=== PATIENT | female | born 1985 | race Caucasian/White ===

== ENCOUNTER 2017-02-01 19:53 | Emergency (ER) | payer OTHER ==
[2017-02-01 20:14] VITALS: TEMP 97.9
[2017-02-01] MEDS ORDERED: ONDANSETRON 4 MG/2 ML VIAL IVP STA (20:40)
[2017-02-01] MEDS ORDERED: KETOROLAC 30 MG/ML 1 ML VIAL IVP STA (20:40)
--- NOTE | 2017-02-01 21:02 | XR ---
EXAMINATION TYPE: XR KUB DATE OF EXAM: 02/01/2017 8:59 PM COMPARISON: NONE HISTORY: Pain TECHNIQUE: Single supine KUB image of the abdomen is obtained FINDINGS: Small bowel demonstrates no evidence for dilatation or air fluid levels. Gas and fecal material is seen in non-distended colon. No convincing evidence for pneumoperitoneum. No unusual calcifications. The lung bases are clear. The osseous structures are intact. IMPRESSION: 1. Overall nonobstructive bowel gas pattern.
[2017-02-01 21:06] LABS: Basophils # (A) 0.1 k/uL (0-0.2); Basophils % (A) 1 %; CH 28.8; CHCM 33.6; Eosinophils # (A) 0.1 k/uL (0-0.7); Eosinophils % (A) 2 %; HCT 39.9 % (34.0-46.0); HDW 2.48; HGB 13.2 gm/dL (11.4-16.0); Luc # (Auto) 0.16; Luc % (Auto) 2; Lymphocytes # (A) 1.9 k/uL (1.0-4.8); Lymphocytes % (A) 23 %; MCH 28.4 pg (25.0-35.0); MCV 85.9 fL (80.0-100.0); Mean Platelet Volume 6.7; Monocytes # (A) 0.5 k/uL (0-1.0); Monocytes % (A) 6 %; Neutrophils # (A) 5.8 k/uL (1.3-7.7); Neutrophils % (A) 68 %; RBC 4.65 m/uL (3.80-5.40); RDW 12.9 % (11.5-15.5); WBC 8.5 k/uL (3.8-10.6); WBC (Perox) 8.83
[2017-02-01 21:11] LABS: Appearance,Urine Cloudy (Clear); Bacteria,Urine Rare /hpf; Bilirubin,Urine Negative (Negative); Glucose,Urine (UA) Negative (Negative); Ketones,Urine Negative (Negative); Leukocyte Esterase,Urine Large (Negative); Mucus,Urine Rare /hpf; Nitrite,Urine Negative (Negative); Particle Count 6254; Protein,Urine Trace (Negative); RBC,Urine 26 /hpf (0-5); Specific Gravity,Urine 1.022 (1.001-1.035); Squamous Epithelial Cell,Urine 4 /hpf (0-4); UA Billing (MACRO vs. MICRO) MICRO; WBC,Urine 29 /hpf (0-5)
[2017-02-01 21:14] LABS: ALT 31 U/L (9-52); AST 28 U/L (14-36); Alkaline Phosphatase 64 U/L (38-126); Amylase 32 U/L (30-110); Anion Gap 12 mmol/L; Blood Urea Nitrogen 10 mg/dL (7-17); Calcium 9.3 mg/dL (8.4-10.2); Carbon Dioxide 25 mmol/L (22-30); Chloride 105 mmol/L (98-107); Glucose 91 mg/dL (74-99); Non-African American GFR(MDRD) >60 (>60 ml/min/1.73 sqM); Potassium 4.5 mmol/L (3.5-5.1); Sodium 142 mmol/L (137-145); Total Bilirubin 0.6 mg/dL (0.2-1.3); Total Protein 8.2 g/dL (6.3-8.2)
[2017-02-01] MEDS ORDERED: SODIUM CHLORIDE 0.9% 1,000 ML IV ONE (21:24)
--- NOTE | 2017-02-01 21:26 | ED ---
Abdominal Pain HPI - General Chief Complaint: Abdominal Pain Stated Complaint: rt side and back pain Time Seen by Provider: 02/01/17 20:39 Source: patient, RN notes reviewed Mode of arrival: ambulatory Limitations: no limitations - History of Present Illness Initial Comments: Patient is a 32-year-old female with chief complaint of right flank pain for the past 3 days as well as pain with bowel movements. She reports that she's ever had a history of kidney stones. Patient states that she did notice some blood in her urine 2 days ago. She denies any trouble urinating. She denies any nausea or vomiting. She states that the pain is mainly over the right flank radiates towards her groin. She states her pain is currently a 6 out of 10. - Related Data Home Medications Medication Instructions Recorded Confirmed ALPRAZolam [Xanax] 0.5 mg PO DAILY PRN 04/10/14 02/01/17 Atorvastatin [Lipitor] 80 mg PO HS 02/01/17 02/01/17 HYDROcodone/APAP 5-325MG [[place] 0.5 tab PO DAILY PRN 02/01/17 02/01/17 5-325] Previous Rx's Medication Instructions Recorded Ibuprofen [Motrin] 800 mg PO Q8HR PRN #30 tab 04/10/14 Ciprofloxacin HCl [Cipro] 500 mg PO Q12HR #14 tablet 02/01/17 Allergies Allergy/AdvReac Type Severity Reaction Status Date / Time sulfamethoxazole Allergy Rash/Hives Verified 02/01/17 20:34 [From Bactrim] trimethoprim [From Bactrim] Allergy Rash/Hives Verified 02/01/17 20:34 Review of Systems ROS Statement: Those systems with pertinent positive or pertinent negative responses have been documented in the HPI. ROS Other: All systems not noted in ROS Statement are negative. Past Medical History Past Medical History: Hyperlipidemia, Hypertension Additional Past Medical History / Comment(s): chronic back pain History of Any Multi-Drug Resistant Organisms: None Reported Past Surgical History: Cholecystectomy, Orthopedic Surgery Additional Past Surgical History / Comment(s): elbow, novasure procedure Past Psychological History: Anxiety Smoking Status: Never smoker Past Alcohol Use History: Rare Past Drug Use History: None Reported General Exam - General Exam Comments Initial Comments: Well-appearing 32-year-old female. Patient does not appear to be in any acute distress. Patient is pleasant and cooperative. Limitations: no limitations General appearance: alert, in no apparent distress Head exam: Present: atraumatic, normocephalic, normal inspection Eye exam: Present: normal appearance, PERRL, EOMI. Absent: scleral icterus, conjunctival injection, periorbital swelling ENT exam: Present: normal exam, mucous membranes moist Neck exam: Present: normal inspection. Absent: tenderness, meningismus, lymphadenopathy Respiratory exam: Present: normal lung sounds bilaterally. Absent: respiratory distress, wheezes, rales, rhonchi, stridor Cardiovascular Exam: Present: regular rate, normal rhythm, normal heart sounds. Absent: systolic murmur, diastolic murmur, rubs, gallop, clicks GI/Abdominal exam: Present: soft, tenderness (Right CVA tenderness), normal bowel sounds. Absent: distended, guarding, rebound, rigid Extremities exam: Present: normal inspection, full ROM, normal capillary refill. Absent: tenderness, pedal edema, joint swelling, calf tenderness Back exam: Present: normal inspection Neurological exam: Present: alert, oriented X3, CN II-XII intact Psychiatric exam: Present: normal affect, normal mood Skin exam: Present: warm, dry, intact, normal color. Absent: rash Course Vital Signs 02/01/17 20:10 Temperature 97.9 F Pulse Rate 109 H Respiratory 18 Rate Blood Pressure 140/92 O2 Sat by Pulse 99 Oximetry Medical Decision Making - Medical Decision Making 32-year-old female with chief complaint of pain with bowel movements and blood with urination for approximately 3 days. Patient denies any dysuria. Patient lab work was reviewed and this does have evidence for urinary tract infection. No evidence of kidney stone and KUB are CT. Patient's pain was managed with IV Toradol. Patient will be discharged at this time with a prescription for her urinary tract infection. Urine culture of the obtained. Advised patient to follow-up with primary care provider in GI specialist she continues to have painful stools. I also recommended patient started to take stool softeners. Return parameters were discussed. - Lab Data Result diagrams: 02/01/17 20:56 02/01/17 20:56 Lab Results 02/01/17 02/01/17 02/01/17 Range/Units 20:56 20:56 20:56 WBC 8.5 (3.8-10.6) k/uL RBC 4.65 (3.80-5.40) m/uL Hgb 13.2 (11.4-16.0) gm/dL Hct 39.9 (34.0-46.0) % MCV 85.9 (80.0-100.0) fL MCH 28.4 (25.0-35.0) pg MCHC 33.0 (31.0-37.0) g/dL RDW 12.9 (11.5-15.5) % Plt Count 331 (150-450) k/uL Neutrophils % 68 % Lymphocytes % 23 % Monocytes % 6 % Eosinophils % 2 % Basophils % 1 % Neutrophils # 5.8 (1.3-7.7) k/uL Lymphocytes # 1.9 (1.0-4.8) k/uL Monocytes # 0.5 (0-1.0) k/uL Eosinophils # 0.1 (0-0.7) k/uL Basophils # 0.1 (0-0.2) k/uL Sodium 142 (137-145) mmol/L Potassium 4.5 (3.5-5.1) mmol/L Chloride 105 (98-107) mmol/L Carbon Dioxide 25 (22-30) mmol/L Anion Gap 12 mmol/L BUN 10 (7-17) mg/dL Creatinine 0.60 (0.52-1.04) mg/dL Est GFR (MDRD) Af Amer >60 (>60 ml/min/1.73 sqM) Est GFR (MDRD) Non-Af >60 (>60 ml/min/1.73 sqM) Glucose 91 (74-99) mg/dL Calcium 9.3 (8.4-10.2) mg/dL Total Bilirubin 0.6 (0.2-1.3) mg/dL AST 28 (14-36) U/L ALT 31 (9-52) U/L Alkaline Phosphatase 64 (38-126) U/L Total Protein 8.2 (6.3-8.2) g/dL Albumin 4.6 (3.5-5.0) g/dL Amylase 32 (30-110) U/L Lipase 88 (23-300) U/L Urine Color Yellow Urine Appearance Cloudy H (Clear) Urine pH 6.0 (5.0-8.0) Ur Specific [place] 1.022 (1.001-1.035) Urine Protein Trace H (Negative) Urine Glucose (UA) Negative (Negative) Urine Ketones Negative (Negative) Urine Blood Negative (Negative) Urine Nitrate Negative (Negative) Urine Bilirubin Negative (Negative) Urine Urobilinogen 2.0 (<2.0) mg/dL Ur Leukocyte Esterase Large H (Negative) Urine RBC 26 H (0-5) /hpf Urine WBC 29 H (0-5) /hpf Ur Squamous Epith Cells 4 (0-4) /hpf Urine Bacteria Rare H (None) /hpf Urine Mucus Rare H (None) /hpf Stool Occult Blood (Negative) 02/01/17 Range/Units 21:14 WBC (3.8-10.6) k/uL RBC (3.80-5.40) m/uL Hgb (11.4-16.0) gm/dL Hct (34.0-46.0) % MCV (80.0-100.0) fL MCH (25.0-35.0) pg MCHC (31.0-37.0) g/dL RDW (11.5-15.5) % Plt Count (150-450) k/uL Neutrophils % % Lymphocytes % % Monocytes % % Eosinophils % % Basophils % % Neutrophils # (1.3-7.7) k/uL Lymphocytes # (1.0-4.8) k/uL Monocytes # (0-1.0) k/uL Eosinophils # (0-0.7) k/uL Basophils # (0-0.2) k/uL Sodium (137-145) mmol/L Potassium (3.5-5.1) mmol/L Chloride (98-107) mmol/L Carbon Dioxide (22-30) mmol/L Anion Gap mmol/L BUN (7-17) mg/dL Creatinine (0.52-1.04) mg/dL Est GFR (MDRD) Af Amer (>60 ml/min/1.73 sqM) Est GFR (MDRD) Non-Af (>60 ml/min/1.73 sqM) Glucose (74-99) mg/dL Calcium (8.4-10.2) mg/dL Total Bilirubin (0.2-1.3) mg/dL AST (14-36) U/L ALT (9-52) U/L Alkaline Phosphatase (38-126) U/L Total Protein (6.3-8.2) g/dL Albumin (3.5-5.0) g/dL Amylase (30-110) U/L Lipase (23-300) U/L Urine Color Urine Appearance (Clear) Urine pH (5.0-8.0) Ur Specific [place] (1.001-1.035) Urine Protein (Negative) Urine Glucose (UA) (Negative) Urine Ketones (Negative) Urine Blood (Negative) Urine Nitrate (Negative) Urine Bilirubin (Negative) Urine Urobilinogen (<2.0) mg/dL Ur Leukocyte Esterase (Negative) Urine RBC (0-5) /hpf Urine WBC (0-5) /hpf Ur Squamous Epith Cells (0-4) /hpf Urine Bacteria (None) /hpf Urine Mucus (None) /hpf Stool Occult Blood Negative (Negative) - Radiology Data Radiology results: report reviewed CT abdomen and pelvis showed no significant abnormality to account for the patient's symptoms. KUB shows a nonobstructive bowel gas pattern. Disposition Clinical Impression: Urinary tract infection, Pain with bowel movements Disposition: HOME SELF-CARE Condition: Good Instructions: Urinary Tract Infection in Women (ED) Additional Instructions: Patient has a follow-up with primary care provider. Patient is advised to continue to take stool softeners. Return to emergency department if any alarming symptoms symptoms occur. Prescriptions: Ciprofloxacin HCl [Cipro] 500 mg PO Q12HR #14 tablet Referrals: Hemant David MD [Primary Care Provider] - 1-2 days Time of Disposition: 22:17
--- NOTE | 2017-02-01 22:13 | CT ---
EXAMINATION TYPE: CT abdomen pelvis wo con DATE OF EXAM: 02/01/2017 10:07 PM COMPARISON: 07/29/2015 HISTORY: Right flank and low back pain with hematuria. CT DLP: 1175.00 mGycm FINDINGS: LUNG BASES: No evidence for nodule. No evidence for infiltrate. LIVER/GB: Cholecystectomy changes noted. No space-occupying hepatic lesion. PANCREAS: No pancreatic mass identified. No inflammatory process seen. SPLEEN: No evidence for splenomegaly. No intrasplenic lesions seen. ADRENALS: No adrenal nodules identified. No evidence for thickening. KIDNEYS: No evidence for renal mass. No nephrolithiasis. No hydronephrosis. BOWEL: Appendix has a normal appearance. No evidence of bowel obstruction. No inflammatory process. Lymph nodes: No evidence for adenopathy greater than 1 cm. Abdominal aorta: Atheromatous changes seen. No evidence for aneurysm. Genital organs: No significant abnormality. Other: No significant abnormality. IMPRESSION: NO SIGNIFICANT ABNORMALITY TO ACCOUNT FOR THE PATIENT'S SYMPTOMS.
[2017-02-01 22:34] VITALS: BP 125/78; PULSE 95; RESP 16
== END 2017-02-01 22:33 | disposition home or self-care (01) ==
LOC: EC 19:53
DX: N39.0 Urinary tract infection, site not specified (principal); G25.89 Other specified extrapyramidal and movement disorders; E78.5 Hyperlipidemia, unspecified; Z79.899 Other long term (current) drug therapy; Z88.1 Allergy status to other antibiotic agents; Z88.2 Allergy status to sulfonamides; F41.9 Anxiety disorder, unspecified
CPT/HCPCS: 36415; 80053; 82150; 83690; 85025; 82272; 81001; 74000; 74176; 99284; 96374; 96375; 96361; J2405; J1885

== ENCOUNTER 2017-04-12 19:51 | Emergency (ER) | payer OTHER ==
[2017-04-12 19:57] VITALS: BP 135/78; PULSE 75; RESP 16; TEMP 97.8
--- NOTE | 2017-04-12 20:09 | ED ---
ENT HPI - General Chief complaint: ENT Stated complaint: rt ear infection Time Seen by Provider: 04/12/17 19:59 Source: patient, RN notes reviewed Mode of arrival: ambulatory Limitations: no limitations - History of Present Illness Initial comments: Patient is a 32-year-old female presents to the emergency room for evaluation of right ear pain. Patient states every is been bothering her for the past few days. Patient denies any trauma to her ear or sticking any foreign bodies in her ear. Patient states that she has to wear headphones at work and has been unable to secondary to pain. Patient states she feels like she cannot fully hear out of her right ear. Patient denies any left ear pain. Patient has been draining from right ear. Patient denies fevers or chills. Patient denies headache or dizziness. Patient denies neck pain. Patient denies chest pain. Patient denies any other symptoms or complaints. - Related Data Home Medications Medication Instructions Recorded Confirmed ALPRAZolam [Xanax] 0.5 mg PO DAILY PRN 04/10/14 04/12/17 Atorvastatin [Lipitor] 80 mg PO HS 02/01/17 04/12/17 HYDROcodone/APAP 5-325MG [[place] 0.5 tab PO DAILY PRN 02/01/17 04/12/17 5-325] Previous Rx's Medication Instructions Recorded Ibuprofen [Motrin] 800 mg PO Q8HR PRN #30 tab 04/10/14 Amoxicillin 500 mg PO Q12HR 10 Days 04/12/17 Allergies Allergy/AdvReac Type Severity Reaction Status Date / Time sulfamethoxazole Allergy Rash/Hives Verified 04/12/17 19:57 [From Bactrim] trimethoprim [From Bactrim] Allergy Rash/Hives Verified 04/12/17 19:57 Review of Systems ROS Statement: Those systems with pertinent positive or pertinent negative responses have been documented in the HPI. ROS Other: All systems not noted in ROS Statement are negative. Past Medical History Past Medical History: Hyperlipidemia, Hypertension Additional Past Medical History / Comment(s): chronic back pain History of Any Multi-Drug Resistant Organisms: None Reported Past Surgical History: Cholecystectomy, Orthopedic Surgery Additional Past Surgical History / Comment(s): elbow, novasure procedure Past Psychological History: Anxiety Smoking Status: Never smoker Past Alcohol Use History: Rare Past Drug Use History: None Reported General Exam - General Exam Comments Initial Comments: Sitting in exam room, no acute distress. Limitations: no limitations General appearance: alert, in no apparent distress Head exam: Present: atraumatic, normocephalic, normal inspection Eye exam: Present: normal appearance Expanded Ear exam: Present: normal external inspection TM/Canal exam: Canal Tenderness: Right TM Mouth exam: Present: normal external inspection Throat exam: normal inspection Neck exam: Present: normal inspection Respiratory exam: Present: normal lung sounds bilaterally. Absent: respiratory distress Cardiovascular Exam: Present: regular rate, normal rhythm, normal heart sounds Extremities exam: Present: normal inspection Back exam: Present: normal inspection Neurological exam: Present: alert, oriented X3, CN II-XII intact, normal gait Psychiatric exam: Present: normal affect, normal mood Skin exam: Present: warm, dry, intact, normal color. Absent: rash Course Vital Signs 04/12/17 19:54 Temperature 97.8 F Pulse Rate 75 Respiratory 16 Rate Blood Pressure 135/78 O2 Sat by Pulse 99 Oximetry Medical Decision Making - Medical Decision Making Patient is a 32-year-old female presents emergency room for evaluation of right ear pain. Will place patient on antibiotics prophylactically and have her follow-up with her primary care provider. Patient states she understands everything that was discussed with her. Return parameters discussed. Disposition Clinical Impression: Right ear pain Disposition: HOME SELF-CARE Condition: Good Instructions: Earache (ED) Additional Instructions: Take antibiotics as directed. Please follow-up with primary care provider 24- 48 hours for reevaluation. Take Tylenol or Motrin as needed for pain. If any new symptom arises or symptoms worsen, return to ER as soon as possible. Prescriptions: Amoxicillin 500 mg PO Q12HR 10 Days Referrals: Hemant David MD [Primary Care Provider] - 1-2 days Time of Disposition: 20:06
== END 2017-04-12 20:15 | disposition home or self-care (01) ==
LOC: EC 19:51
DX: H92.01 Otalgia, right ear (principal); E78.5 Hyperlipidemia, unspecified; Z88.2 Allergy status to sulfonamides; Z79.899 Other long term (current) drug therapy
CPT/HCPCS: 99282

== ENCOUNTER 2017-06-17 15:07 | Emergency (ER) | payer OTHER ==
--- NOTE | 2017-06-17 16:34 | ED ---
Upper Extremity HPI - General Chief Complaint: Extremity Injury, Upper Stated Complaint: R hand pain Time Seen by Provider: 06/17/17 16:06 Source: patient Mode of arrival: ambulatory Limitations: no limitations - Related Data Home Medications Medication Instructions Recorded Confirmed ALPRAZolam [Xanax] 0.5 mg PO DAILY PRN 04/10/14 04/12/17 Atorvastatin [Lipitor] 80 mg PO HS 02/01/17 04/12/17 HYDROcodone/APAP 5-325MG [[place] 0.5 tab PO DAILY PRN 02/01/17 04/12/17 5-325] Previous Rx's Medication Instructions Recorded Ibuprofen [Motrin] 800 mg PO Q8HR PRN #30 tab 04/10/14 Amoxicillin 500 mg PO Q12HR 10 Days 04/12/17 Allergies Allergy/AdvReac Type Severity Reaction Status Date / Time sulfamethoxazole Allergy Rash/Hives Verified 04/12/17 19:57 [From Bactrim] trimethoprim [From Bactrim] Allergy Rash/Hives Verified 04/12/17 19:57 Review of Systems ROS Statement: Those systems with pertinent positive or pertinent negative responses have been documented in the HPI. ROS Other: All systems not noted in ROS Statement are negative. Past Medical History Past Medical History: Hyperlipidemia, Hypertension Additional Past Medical History / Comment(s): chronic back pain History of Any Multi-Drug Resistant Organisms: None Reported Past Surgical History: Cholecystectomy, Orthopedic Surgery Additional Past Surgical History / Comment(s): elbow, novasure procedure Past Psychological History: Anxiety Smoking Status: Never smoker Past Alcohol Use History: Rare Past Drug Use History: None Reported General Exam Limitations: no limitations Course Vital Signs 06/17/17 15:36 Temperature 98.1 F Pulse Rate 67 Respiratory 20 Rate Blood Pressure 147/88 O2 Sat by Pulse 96 Oximetry Disposition Clinical Impression: Right hand pain, Carpal tunnel syndrome Disposition: HOME SELF-CARE Condition: Good Instructions: Wrist Injury (ED) Additional Instructions: Patient advised to apply ice over the wrist. Monitor for any signs of swelling or increased redness over the area. Patient could suspect to have some numbness and tingling for the next week. Recommended following up with your orthopedic physician of symptoms continue to persist. Return to the emergency department if any alarming signs or symptoms occur. Referrals: Hemant David MD [Primary Care Provider] - 1-2 days Time of Disposition: 16:33
[2017-06-17 16:46] VITALS: BP 140/85; PULSE 68; RESP 18; TEMP 98.3
== END 2017-06-17 16:44 | disposition home or self-care (01) ==
LOC: EC 15:07
DX: G56.01 Carpal tunnel syndrome, right upper limb (principal); E78.5 Hyperlipidemia, unspecified; I10 Essential (primary) hypertension; Z88.1 Allergy status to other antibiotic agents; Z88.2 Allergy status to sulfonamides; Z79.899 Other long term (current) drug therapy
CPT/HCPCS: 29125; 99283

== ENCOUNTER 2017-09-06 17:19 | Emergency (ER) | payer OTHER ==
[2017-09-06 17:34] VITALS: RESP 18; TEMP 97.4
[2017-09-06] MEDS ORDERED: ONDANSETRON 4 MG/2 ML VIAL IVP STA (18:56)
[2017-09-06] MEDS ORDERED: SODIUM CHLORIDE 0.9% 1,000 ML IV ONE (18:56)
[2017-09-06] MEDS ORDERED: SODIUM CHLORIDE 0.9% 1,000 ML IV SCH (19:00)
[2017-09-06 19:11] LABS: Basophils # (A) 0.1 k/uL (0-0.2); Basophils % (A) 1 %; CH 28.9; CHCM 33.7; Eosinophils # (A) 0.2 k/uL (0-0.7); Eosinophils % (A) 2 %; HCT 38.6 % (34.0-46.0); HDW 2.51; Luc # (Auto) 0.15; Luc % (Auto) 2; Lymphocytes # (A) 1.9 k/uL (1.0-4.8); Lymphocytes % (A) 29 %; MCH 28.9 pg (25.0-35.0); MCHC 33.5 g/dL (31.0-37.0); MCV 86.1 fL (80.0-100.0); Mean Platelet Volume 6.8; Monocytes # (A) 0.5 k/uL (0-1.0); Monocytes % (A) 7 %; Neutrophils # (A) 3.8 k/uL (1.3-7.7); Neutrophils % (A) 59 %; RBC 4.49 m/uL (3.80-5.40); RDW 12.5 % (11.5-15.5); WBC 6.5 k/uL (3.8-10.6)
[2017-09-06 19:21] LABS: ALT 49 U/L (9-52); AST 42 U/L (14-36); Alkaline Phosphatase 71 U/L (38-126); Anion Gap 12 mmol/L; Blood Urea Nitrogen 10 mg/dL (7-17); Carbon Dioxide 21 mmol/L (22-30); Chloride 106 mmol/L (98-107); Glucose 91 mg/dL (74-99); Non-African American GFR(MDRD) >60 (>60 ml/min/1.73 sqM); Potassium 3.9 mmol/L (3.5-5.1); Sodium 139 mmol/L (137-145); Total Bilirubin 0.4 mg/dL (0.2-1.3); Total Protein 6.9 g/dL (6.3-8.2)
[2017-09-06] MEDS ORDERED: MECLIZINE 12.5 MG TAB PO STA (19:30)
--- NOTE | 2017-09-06 19:31 | ED ---
Dizziness HPI - General Source: patient, RN notes reviewed, old records reviewed Mode of arrival: ambulatory Limitations: no limitations <Rea Troyily - Last Filed: 09/07/17 05:18> <Vijaya Samuels - Last Filed: 10/28/17 00:42> - General Chief Complaint: Dizziness Stated Complaint: Light Headed, Nauseated Time Seen by Provider: 09/06/17 18:48 - History of Present Illness Initial Comments: 32-year-old female presents emergency Department chief complaint of occasional dizziness today. She reports she woke up and went from a laying down to sitting position and felt like she was lightheaded and dizzy. She reports that yesterday she did have multiple episodes of diarrhea. She states that she's had no vomiting. Denies any chest pain or abdominal pain. Patient states that she was also at work at [employer] with heavy equipment but she did not want to go into to her dizziness. She reports that she's tried to stay hydrated. Denies any fevers or chills. She reports is also had a minor cough over the past few days.Patient has a history of hyperlipidemia and hypertension, chronic back pain and vertigo. (Callie Troy) - Related Data Home Medications Medication Instructions Recorded Confirmed ALPRAZolam [Xanax] 0.5 mg PO DAILY PRN 04/10/14 10/01/17 Atorvastatin [Lipitor] 80 mg PO HS 02/01/17 10/01/17 Previous Rx's Medication Instructions Recorded Ibuprofen [Motrin] 800 mg PO Q8HR PRN #30 tab 04/10/14 predniSONE 50 mg PO DAILY #5 tablet 10/01/17 Allergies Allergy/AdvReac Type Severity Reaction Status Date / Time sulfamethoxazole Allergy Rash/Hives Verified 10/01/17 21:04 [From Bactrim] trimethoprim [From Bactrim] Allergy Rash/Hives Verified 10/01/17 21:04 Review of Systems ROS Other: All systems not noted in ROS Statement are negative. <Rea Troyily - Last Filed: 09/07/17 05:18> ROS Other: All systems not noted in ROS Statement are negative. <Vijaya Samuels - Last Filed: 10/28/17 00:42> ROS Statement: Those systems with pertinent positive or pertinent negative responses have been documented in the HPI. Past Medical History Past Medical History: Hyperlipidemia, Hypertension Additional Past Medical History / Comment(s): chronic back pain, vertigo History of Any Multi-Drug Resistant Organisms: None Reported Past Surgical History: Cholecystectomy, Orthopedic Surgery Additional Past Surgical History / Comment(s): elbow, novasure procedure Past Psychological History: Anxiety Smoking Status: Never smoker Past Alcohol Use History: Rare Past Drug Use History: None Reported <Callie Troy - Last Filed: 09/07/17 05:18> General Exam Limitations: no limitations General appearance: alert, in no apparent distress Head exam: Present: atraumatic, normocephalic, normal inspection Eye exam: Present: normal appearance, PERRL, EOMI. Absent: scleral icterus, conjunctival injection, periorbital swelling ENT exam: Present: normal exam, mucous membranes moist Neck exam: Present: normal inspection. Absent: tenderness, meningismus, lymphadenopathy Respiratory exam: Present: normal lung sounds bilaterally. Absent: respiratory distress, wheezes, rales, rhonchi, stridor Cardiovascular Exam: Present: regular rate, normal rhythm, normal heart sounds. Absent: systolic murmur, diastolic murmur, rubs, gallop, clicks GI/Abdominal exam: Present: soft, normal bowel sounds. Absent: distended, tenderness, guarding, rebound, rigid Extremities exam: Present: normal inspection, full ROM, normal capillary refill. Absent: tenderness, pedal edema, joint swelling, calf tenderness Back exam: Present: normal inspection Neurological exam: Present: alert, oriented X3, CN II-XII intact Psychiatric exam: Present: normal affect, normal mood Skin exam: Present: warm, dry, intact, normal color. Absent: rash <Callie Troy - Last Filed: 09/07/17 05:18> <Vijaya Samuels - Last Filed: 10/28/17 00:42> - General Exam Comments Initial Comments: This is a well-appearing 32-year-old female. No distress. (Callie Troy) Vital Signs 09/06/17 09/06/17 17:32 20:19 Temperature 97.4 F L Pulse Rate 62 64 Respiratory 18 18 Rate Blood Pressure 130/84 120/67 O2 Sat by Pulse 98 98 Oximetry Medical Decision Making - Lab Data Result diagrams: 09/06/17 18:51 09/06/17 18:51 - Radiology Data Radiology results: report reviewed <WoodrowCallie - Last Filed: 09/07/17 05:18> - Lab Data Result diagrams: 09/06/17 18:51 09/06/17 18:51 <Vijaya Samuels - Last Filed: 10/28/17 00:42> - Medical Decision Making This is a 32-year-old female presents emergency Department chief complaint of dizziness and nausea for the past day. She reports that whenever she got up this morning when she went from laying to sitting position she felt dizzy. She reports that she's tried to stay hydrated, but she did have multiple ecchymosis of diarrhea yesterday. Denies any chest pain shortness of breath, vomiting or abdominal pain. Patient's lab work was reviewed and negative for any abnormalities. Chest x-ray was also within normal limits. She denies any other significant chest pain. Slightly patient per dehydrated due to the diarrhea yesterday. She reports she does feel better after the nausea medicine. Patient be discharged with some close follow-up with primary care provider. Return parameters were discussed. (Callie Troy) - Lab Data Lab Results 09/06/17 09/06/17 09/06/17 Range/Units 18:51 18:51 18:53 WBC 6.5 (3.8-10.6) k/uL RBC 4.49 (3.80-5.40) m/uL Hgb 13.0 (11.4-16.0) gm/dL Hct 38.6 (34.0-46.0) % MCV 86.1 (80.0-100.0) fL MCH 28.9 (25.0-35.0) pg MCHC 33.5 (31.0-37.0) g/dL RDW 12.5 (11.5-15.5) % Plt Count 315 (150-450) k/uL Neutrophils % 59 % Lymphocytes % 29 % Monocytes % 7 % Eosinophils % 2 % Basophils % 1 % Neutrophils # 3.8 (1.3-7.7) k/uL Lymphocytes # 1.9 (1.0-4.8) k/uL Monocytes # 0.5 (0-1.0) k/uL Eosinophils # 0.2 (0-0.7) k/uL Basophils # 0.1 (0-0.2) k/uL Sodium 139 (137-145) mmol/L Potassium 3.9 (3.5-5.1) mmol/L Chloride 106 (98-107) mmol/L Carbon Dioxide 21 L (22-30) mmol/L Anion Gap 12 mmol/L BUN 10 (7-17) mg/dL Creatinine 0.60 (0.52-1.04) mg/dL Est GFR (MDRD) Af Amer >60 (>60 ml/min/1.73 sqM) Est GFR (MDRD) Non-Af >60 (>60 ml/min/1.73 sqM) Glucose 91 (74-99) mg/dL Calcium 9.0 (8.4-10.2) mg/dL Total Bilirubin 0.4 (0.2-1.3) mg/dL AST 42 H (14-36) U/L ALT 49 (9-52) U/L Alkaline Phosphatase 71 (38-126) U/L Total Protein 6.9 (6.3-8.2) g/dL Albumin 4.0 (3.5-5.0) g/dL Urine Color Urine Appearance (Clear) Urine pH (5.0-8.0) Ur Specific [place] (1.001-1.035) Urine Protein (Negative) Urine Glucose (UA) (Negative) Urine Ketones (Negative) Urine Blood (Negative) Urine Nitrite (Negative) Urine Bilirubin (Negative) Urine Urobilinogen (<2.0) mg/dL Ur Leukocyte Esterase (Negative) Urine RBC (0-5) /hpf Urine WBC (0-5) /hpf Ur Squamous Epith Cells (0-4) /hpf Urine Mucus (None) /hpf Urine HCG, Qual Not Detected (Not Detectd) 09/06/17 Range/Units 18:53 WBC (3.8-10.6) k/uL RBC (3.80-5.40) m/uL Hgb (11.4-16.0) gm/dL Hct (34.0-46.0) % MCV (80.0-100.0) fL MCH (25.0-35.0) pg MCHC (31.0-37.0) g/dL RDW (11.5-15.5) % Plt Count (150-450) k/uL Neutrophils % % Lymphocytes % % Monocytes % % Eosinophils % % Basophils % % Neutrophils # (1.3-7.7) k/uL Lymphocytes # (1.0-4.8) k/uL Monocytes # (0-1.0) k/uL Eosinophils # (0-0.7) k/uL Basophils # (0-0.2) k/uL Sodium (137-145) mmol/L Potassium (3.5-5.1) mmol/L Chloride (98-107) mmol/L Carbon Dioxide (22-30) mmol/L Anion Gap mmol/L BUN (7-17) mg/dL Creatinine (0.52-1.04) mg/dL Est GFR (MDRD) Af Amer (>60 ml/min/1.73 sqM) Est GFR (MDRD) Non-Af (>60 ml/min/1.73 sqM) Glucose (74-99) mg/dL Calcium (8.4-10.2) mg/dL Total Bilirubin (0.2-1.3) mg/dL AST (14-36) U/L ALT (9-52) U/L Alkaline Phosphatase (38-126) U/L Total Protein (6.3-8.2) g/dL Albumin (3.5-5.0) g/dL Urine Color Yellow Urine Appearance Cloudy H (Clear) Urine pH 6.5 (5.0-8.0) Ur Specific [place] 1.018 (1.001-1.035) Urine Protein Negative (Negative) Urine Glucose (UA) Negative (Negative) Urine Ketones Negative (Negative) Urine Blood Negative (Negative) Urine Nitrite Negative (Negative) Urine Bilirubin Negative (Negative) Urine Urobilinogen <2.0 (<2.0) mg/dL Ur Leukocyte Esterase Moderate H (Negative) Urine RBC 4 (0-5) /hpf Urine WBC 2 (0-5) /hpf Ur Squamous Epith Cells 14 H (0-4) /hpf Urine Mucus Rare H (None) /hpf Urine HCG, Qual (Not Detectd) - Radiology Data Physical x-rays negative for any acute process. (Callie Troy) Disposition Time of Disposition: 20:14 <Callie Troy - Last Filed: 09/07/17 05:18> <Vijaya Samuels - Last Filed: 10/28/17 00:42> Clinical Impression: Dizziness Disposition: HOME SELF-CARE Condition: Good Instructions: Dizziness (ED) Additional Instructions: She is follow-up with primary care provider. REst, remain hydrated. Return to the emergency department if any alarming signs or symptoms occur. Referrals: Hemant David MD [Primary Care Provider] - 1-2 days
[2017-09-06 19:35] LABS: Appearance,Urine Cloudy (Clear); Bilirubin,Urine Negative (Negative); Glucose,Urine (UA) Negative (Negative); Ketones,Urine Negative (Negative); Leukocyte Esterase,Urine Moderate (Negative); Mucus,Urine Rare /hpf; Nitrite,Urine Negative (Negative); PH, Urine 6.5 (5.0-8.0); Particle Count 2789; Protein,Urine Negative (Negative); RBC,Urine 4 /hpf (0-5); Specific Gravity,Urine 1.018 (1.001-1.035); Squamous Epithelial Cell,Urine 14 /hpf (0-4); UA Billing (MACRO vs. MICRO) MICRO; Urobilinogen,Urine <2.0 mg/dL (<2.0); WBC,Urine 2 /hpf (0-5)
--- NOTE | 2017-09-06 19:55 | XR ---
EXAMINATION TYPE: XR chest 2V DATE OF EXAM: 09/06/2017 COMPARISON: Prior chest x-ray 01/11/2016 HISTORY: Dizziness, lightheaded TECHNIQUE: Frontal and lateral views of the chest are obtained. FINDINGS: There is no focal air space opacity, pleural effusion, or pneumothorax seen. The cardiac silhouette size is stable. Hyperinflation may be indicative of underlying COPD. The osseous structur es are intact. IMPRESSION: No acute cardiopulmonary process.
[2017-09-06 20:19] VITALS: BP 120/67; PULSE 64
== END 2017-09-06 20:23 | disposition home or self-care (01) ==
LOC: EC 17:19
DX: R42 Dizziness and giddiness (principal); R19.7 Diarrhea, unspecified; R11.0 Nausea; I10 Essential (primary) hypertension; E78.5 Hyperlipidemia, unspecified; Z88.1 Allergy status to other antibiotic agents; Z88.2 Allergy status to sulfonamides; Z79.899 Other long term (current) drug therapy
CPT/HCPCS: 99284 ×2; 96374 ×2; 96361 ×2; 36415; 80053; 85025; 81001; 81025; 71020; J2405

== ENCOUNTER 2017-10-01 21:01 | Emergency (ER) | payer OTHER ==
[2017-10-01 22:04] VITALS: RESP 18
--- NOTE | 2017-10-01 22:27 | XR ---
EXAMINATION TYPE: XR chest 2V DATE OF EXAM: 10/01/2017 COMPARISON: 09/06/2017 HISTORY: Cough TECHNIQUE: Frontal and lateral views of the chest are obtained. FINDINGS: Heart and mediastinum are normal. Lungs are clear. Diaphragm is normal. Bony thorax appear s normal. IMPRESSION: Normal chest. No change.
--- NOTE | 2017-10-01 23:02 | ED ---
URI HPI - General Chief Complaint: Upper Respiratory Infection Stated Complaint: URI Time Seen by Provider: 10/01/17 21:27 Source: patient Mode of arrival: ambulatory Limitations: no limitations - History of Present Illness Initial Comments: 32-year-old female patient presents to the emergency department today for complaints of cough 2 weeks. Patient states that she started with upper respiratory symptoms including nasal congestion and drainage, sore throat, and cough approximately 2 weeks ago. Patient states that her other symptoms have resolved however the cough persists. She states that when she has coughing episodes she feels short of breath. She states that she occasionally does cough up green sputum. She denies any resting shortness of breath. States she does feel like she has more difficulty breathing with lying down. States that she has been using her mother's albuterol nebulizer treatments that haven't really changed her symptoms. She denies any fevers or chills with this. She denies any palpitations or racing heart. Patient denies any recent rash, chest pain, abdominal pain, nausea, vomiting, diarrhea, constipation, back pain, numbness, tingling, dizziness, weakness, hematuria, dysuria, urinary urgency, urinary frequency, headache, visual changes, or any other complaints. She denies any chance of , states that she has had a NovaSure procedure. She denies any use of tobacco products. - Related Data Home Medications Medication Instructions Recorded Confirmed ALPRAZolam [Xanax] 0.5 mg PO DAILY PRN 04/10/14 10/01/17 Atorvastatin [Lipitor] 80 mg PO HS 02/01/17 10/01/17 Previous Rx's Medication Instructions Recorded Ibuprofen [Motrin] 800 mg PO Q8HR PRN #30 tab 04/10/14 predniSONE 50 mg PO DAILY #5 tablet 10/01/17 Allergies Allergy/AdvReac Type Severity Reaction Status Date / Time sulfamethoxazole Allergy Rash/Hives Verified 10/01/17 21:04 [From Bactrim] trimethoprim [From Bactrim] Allergy Rash/Hives Verified 10/01/17 21:04 Review of Systems ROS Statement: Those systems with pertinent positive or pertinent negative responses have been documented in the HPI. ROS Other: All systems not noted in ROS Statement are negative. Past Medical History Past Medical History: Hyperlipidemia, Hypertension Additional Past Medical History / Comment(s): chronic back pain, vertigo History of Any Multi-Drug Resistant Organisms: None Reported Past Surgical History: Cholecystectomy, Orthopedic Surgery Additional Past Surgical History / Comment(s): elbow, novasure procedure Past Psychological History: Anxiety Smoking Status: Never smoker Past Alcohol Use History: Rare Past Drug Use History: None Reported General Exam Limitations: no limitations General appearance: alert, in no apparent distress, other (This is a well- developed, well-nourished adult female patient in no acute distress. Vital signs upon presentation are temperature 98.7F, pulse 116, respirations 20, blood pressure 132/75, pulse ox 95% on room air.) Eye exam: Present: normal appearance, PERRL, EOMI. Absent: scleral icterus, conjunctival injection, periorbital swelling ENT exam: Present: normal exam, normal oropharynx, mucous membranes moist, TM's normal bilaterally Respiratory exam: Present: normal lung sounds bilaterally, other (Respirations are even and unlabored. Harsh cough noted during exam.). Absent: respiratory distress, wheezes, rales, rhonchi, stridor Cardiovascular Exam: Present: regular rate, normal rhythm, normal heart sounds. Absent: systolic murmur, diastolic murmur, rubs, gallop, clicks Neurological exam: Present: alert, oriented X3, CN II-XII intact Psychiatric exam: Present: normal affect, normal mood Skin exam: Present: warm, dry, intact, normal color. Absent: rash Course Vital Signs 10/01/17 10/01/17 10/01/17 21:02 22:03 23:17 Temperature 98.7 F 97.2 F L 97.4 F L Pulse Rate 116 H 76 79 Respiratory 20 18 18 Rate Blood Pressure 132/75 143/83 128/78 O2 Sat by Pulse 95 97 100 Oximetry Medical Decision Making - Medical Decision Making 32-year-old female patient presented for evaluation of cough 2 weeks. Physical examination revealed clear lung sounds with no wheezing, rales, rhonchi , or other adventitious sounds. Respirations are even and unlabored. Did note a harsh cough during exam. Vital signs are stable, heart rate was in the 70s at discharge, and her oxygen levels 100%. We did give patient by mouth prednisone here in the department and we will place her on a course of prednisone for home for treatment of acute bronchitis. She is instructed to follow-up with her primary care physician for recheck in 1-2 days. She is instructed to return here immediately for any new, worsening, or concerning symptoms. She verbalizes understanding and agrees with this plan. - Radiology Data Radiology results: report reviewed, image reviewed Two-view x-ray of the chest shows a heart and mediastinum are normal. Lungs are clear. Diaphragm is normal. Bony thorax appears normal. Impression by Dr. Stephen shows normal chest with no change. Disposition Clinical Impression: Acute bronchitis Disposition: HOME SELF-CARE Condition: Good Instructions: Acute Bronchitis (ED) Additional Instructions: Take steroid prescription and full. Use [id number] cough medications as needed. Increase fluids. Follow-up with your primary care physician for recheck in 1-2 days. Prescriptions: predniSONE 50 mg PO DAILY #5 tablet Referrals: Hemant David MD [Primary Care Provider] - 1-2 days Time of Disposition: 23:02
[2017-10-01] MEDS ORDERED: predniSONE 50 MG TAB PO STA (23:09)
[2017-10-01 23:18] VITALS: BP 128/78; PULSE 79; TEMP 97.4
== END 2017-10-01 23:18 | disposition home or self-care (01) ==
LOC: EC 21:01
DX: J20.9 Acute bronchitis, unspecified (principal); E78.5 Hyperlipidemia, unspecified; Z79.899 Other long term (current) drug therapy; Z88.2 Allergy status to sulfonamides
CPT/HCPCS: 71020; 99283; J7512

== ENCOUNTER 2018-01-26 17:05 | Emergency (ER) | payer OTHER ==
[2018-01-26] MEDS ORDERED: ONDANSETRON 4 MG/2 ML VIAL IVP STA (17:43)
[2018-01-26] MEDS ORDERED: SODIUM CHLORIDE 0.9% 1,000 ML IV ONE (17:44)
--- NOTE | 2018-01-26 17:46 | ED ---
General Adult HPI - General Chief complaint: GI Bleed Stated complaint: Abd Pain, lower back pain Time Seen by Provider: 01/26/18 17:31 Source: patient, RN notes reviewed, old records reviewed Mode of arrival: ambulatory Limitations: no limitations - History of Present Illness Initial comments: 33 yoF presenting with left flank pain radiating to her LLQ and suprapubic area accompanied by nausea, one episode of emesis, and GI bleeding. Patient states the pain started 2 days ago and has been gradually worsening. She admits to loose stool with clots of blood in them. Denies suspicious foods or recent travels. Denies history of hemorrhoids, IBD, or diverticulitis. Denies fever but admits to chills. Denies dysuria or hematuria. - Related Data Home Medications Medication Instructions Recorded Confirmed ALPRAZolam [Xanax] 0.5 mg PO DAILY PRN 04/10/14 01/26/18 Atorvastatin [Lipitor] 80 mg PO HS 02/01/17 01/26/18 Cyclobenzaprine HCl 10 mg PO HS PRN 01/26/18 01/26/18 Previous Rx's Medication Instructions Recorded Ibuprofen [Motrin] 800 mg PO Q8HR PRN #30 tab 04/10/14 Cephalexin [Keflex] 500 mg PO Q12HR 7 Days #14 cap 01/26/18 Ibuprofen [Motrin] 600 mg PO Q6HR PRN #20 tab 01/26/18 Allergies Allergy/AdvReac Type Severity Reaction Status Date / Time sulfamethoxazole Allergy Rash/Hives Verified 01/26/18 17:29 [From Bactrim] trimethoprim [From Bactrim] Allergy Rash/Hives Verified 01/26/18 17:29 Review of Systems ROS Statement: Those systems with pertinent positive or pertinent negative responses have been documented in the HPI. ROS Other: All systems not noted in ROS Statement are negative. Constitutional: Reports: chills. Denies: fever Respiratory: Denies: cough, dyspnea Cardiovascular: Denies: chest pain Gastrointestinal: Reports: nausea, vomiting, diarrhea, hematochezia Genitourinary: Denies: urgency, dysuria Musculoskeletal: Reports: back pain Neurological: Denies: headache, weakness Hematological/Lymphatic: Denies: easy bleeding Past Medical History Past Medical History: Hyperlipidemia, Hypertension Additional Past Medical History / Comment(s): chronic back pain, vertigo History of Any Multi-Drug Resistant Organisms: None Reported Past Surgical History: Cholecystectomy, Orthopedic Surgery Additional Past Surgical History / Comment(s): elbow, novasure procedure, carpal tunnel repair bilateral hands Past Psychological History: Anxiety Smoking Status: Never smoker Past Alcohol Use History: Rare Past Drug Use History: None Reported General Exam Limitations: no limitations General appearance: alert, in no apparent distress Head exam: Present: atraumatic, normocephalic Eye exam: Present: normal appearance Respiratory exam: Present: normal lung sounds bilaterally, respiratory distress , wheezes, rales Cardiovascular Exam: Present: regular rate, normal rhythm. Absent: bradycardia , tachycardia, irregular rhythm GI/Abdominal exam: Present: soft. Absent: distended, tenderness, guarding, rebound, rigid Rectal exam: Present: normal inspection. Absent: bloody stool, hemorrhoids, mass, tenderness Extremities exam: Present: full ROM Back exam: Present: CVA tenderness (R). Absent: tenderness, CVA tenderness (L) , paraspinal tenderness Neurological exam: Present: alert, oriented X3. Absent: abnormal gait, motor sensory deficit Psychiatric exam: Present: normal affect Skin exam: Present: warm, dry, intact Course Vital Signs 01/26/18 01/26/18 17:13 19:03 Temperature 97.2 F L Pulse Rate 72 63 Respiratory 18 18 Rate Blood Pressure 124/83 109/65 O2 Sat by Pulse 100 96 Oximetry Medical Decision Making - Medical Decision Making 33 yoF presenting with left flank pain and GI bleed. On initial exam the patient is awake, alert, and in NAD. VSS. Her rectal exam showed no gross blood or hemorrhoids. Her UA was positive for infection. 1856 Patient states her pain has improved. [address] is negative for acute intraabominal process. She was instructed to follow up with her primary care provider regarding the lumbar findings. Patient has a known history of chronic back pain and has no focal weakness or numbness. She will be treated outpatient for her UTI. Her bleeding is likely coming from her UTI as her FOBT was negative as well as her rectal exam and CT. No further emergent workup indicated. The patient was given return to ED instructions. They were instructed to follow up with their primary care provider. Stable for discharge at this time. - Lab Data Result diagrams: 01/26/18 18:24 01/26/18 18:24 Lab Results 01/26/18 01/26/18 01/26/18 Range/Units 17:38 17:38 18:24 WBC (3.8-10.6) k/uL RBC (3.80-5.40) m/uL Hgb (11.4-16.0) gm/dL Hct (34.0-46.0) % MCV (80.0-100.0) fL MCH (25.0-35.0) pg MCHC (31.0-37.0) g/dL RDW (11.5-15.5) % Plt Count (150-450) k/uL Neutrophils % % Lymphocytes % % Monocytes % % Eosinophils % % Basophils % % Neutrophils # (1.3-7.7) k/uL Lymphocytes # (1.0-4.8) k/uL Monocytes # (0-1.0) k/uL Eosinophils # (0-0.7) k/uL Basophils # (0-0.2) k/uL Sodium 141 (137-145) mmol/L Potassium 4.4 (3.5-5.1) mmol/L Chloride 106 (98-107) mmol/L Carbon Dioxide 26 (22-30) mmol/L Anion Gap 9 mmol/L BUN 11 (7-17) mg/dL Creatinine 0.71 (0.52-1.04) mg/dL Est GFR (CKD-EPI)AfAm >90 (>60 ml/min/1.73 sqM) Est GFR (CKD-EPI)NonAf >90 (>60 ml/min/1.73 sqM) Glucose 90 (74-99) mg/dL Calcium 8.9 (8.4-10.2) mg/dL Urine Color Light Yellow Urine Appearance Clear (Clear) Urine pH 7.5 (5.0-8.0) Ur Specific [place] 1.014 (1.001-1.035) Urine Protein Negative (Negative) Urine Glucose (UA) Negative (Negative) Urine Ketones Negative (Negative) Urine Blood Negative (Negative) Urine Nitrite Negative (Negative) Urine Bilirubin Negative (Negative) Urine Urobilinogen <2.0 (<2.0) mg/dL Ur Leukocyte Esterase Large H (Negative) Urine RBC 22 H (0-5) /hpf Urine WBC 14 H (0-5) /hpf Ur Squamous Epith Cells 5 H (0-4) /hpf Urine HCG, Qual Not Detected (Not Detectd) Stool Occult Blood (Negative) 01/26/18 01/26/18 Range/Units 18:24 18:24 WBC 7.4 (3.8-10.6) k/uL RBC 4.84 (3.80-5.40) m/uL Hgb 13.8 (11.4-16.0) gm/dL Hct 39.2 (34.0-46.0) % MCV 81.1 (80.0-100.0) fL MCH 28.6 (25.0-35.0) pg MCHC 35.3 (31.0-37.0) g/dL RDW 12.5 (11.5-15.5) % Plt Count 313 (150-450) k/uL Neutrophils % 54 % Lymphocytes % 35 % Monocytes % 7 % Eosinophils % 2 % Basophils % 1 % Neutrophils # 3.9 (1.3-7.7) k/uL Lymphocytes # 2.6 (1.0-4.8) k/uL Monocytes # 0.5 (0-1.0) k/uL Eosinophils # 0.2 (0-0.7) k/uL Basophils # 0.1 (0-0.2) k/uL Sodium (137-145) mmol/L Potassium (3.5-5.1) mmol/L Chloride (98-107) mmol/L Carbon Dioxide (22-30) mmol/L Anion Gap mmol/L BUN (7-17) mg/dL Creatinine (0.52-1.04) mg/dL Est GFR (CKD-EPI)AfAm (>60 ml/min/1.73 sqM) Est GFR (CKD-EPI)NonAf (>60 ml/min/1.73 sqM) Glucose (74-99) mg/dL Calcium (8.4-10.2) mg/dL Urine Color Urine Appearance (Clear) Urine pH (5.0-8.0) Ur Specific [place] (1.001-1.035) Urine Protein (Negative) Urine Glucose (UA) (Negative) Urine Ketones (Negative) Urine Blood (Negative) Urine Nitrite (Negative) Urine Bilirubin (Negative) Urine Urobilinogen (<2.0) mg/dL Ur Leukocyte Esterase (Negative) Urine RBC (0-5) /hpf Urine WBC (0-5) /hpf Ur Squamous Epith Cells (0-4) /hpf Urine HCG, Qual (Not Detectd) Stool Occult Blood Negative (Negative) Disposition Clinical Impression: Acute cystitis with hematuria, Right flank pain Clinical Impression: (Ruled Out): Left flank pain Disposition: HOME SELF-CARE Condition: Good Instructions: Urinary Tract Infection in Women (ED), Back Pain (ED) Additional Instructions: Return to ED if pain is not controllable with Motrin and Tylenol, if you develop a fever, if you are unable to eat or drink without vomiting. Prescriptions: Cephalexin [Keflex] 500 mg PO Q12HR 7 Days #14 cap Ibuprofen [Motrin] 600 mg PO Q6HR PRN #20 tab PRN Reason: Pain Referrals: Hemant David MD [Primary Care Provider] - 1-2 days
[2018-01-26] MEDS ORDERED: KETOROLAC 30 MG/ML 1 ML VIAL IVP STA (17:56)
[2018-01-26] MEDS ORDERED: KETOROLAC 30 MG/ML 1 ML VIAL IVP SCH (18:00)
[2018-01-26 18:08] LABS: Appearance,Urine Clear (Clear); Bilirubin,Urine Negative (Negative); Blood,Urine Negative (Negative); Color,Urine Light Yellow; Glucose,Urine (UA) Negative (Negative); Ketones,Urine Negative (Negative); Leukocyte Esterase,Urine Large (Negative); PH, Urine 7.5 (5.0-8.0); Protein,Urine Negative (Negative); RBC,Urine 22 /hpf (0-5); Specific Gravity,Urine 1.014 (1.001-1.035); Squamous Epithelial Cell,Urine 5 /hpf (0-4); Urobilinogen,Urine <2.0 mg/dL (<2.0); WBC,Urine 14 /hpf (0-5)
[2018-01-26] MEDS ORDERED: cefTRIAXone IN SWFI 1,000 MG/10 ML SYRINGE IVP STA (18:27)
[2018-01-26 18:44] LABS: Basophils # (A) 0.1 k/uL (0-0.2); Basophils % (A) 1 %; Eosinophils # (A) 0.2 k/uL (0-0.7); Eosinophils % (A) 2 %; HCT 39.2 % (34.0-46.0); HGB 13.8 gm/dL (11.4-16.0); Lymphocytes # (A) 2.6 k/uL (1.0-4.8); Lymphocytes % (A) 35 %; MCH 28.6 pg (25.0-35.0); MCHC 35.3 g/dL (31.0-37.0); MCV 81.1 fL (80.0-100.0); Monocytes # (A) 0.5 k/uL (0-1.0); Monocytes % (A) 7 %; Neutrophils # (A) 3.9 k/uL (1.3-7.7); Neutrophils % (A) 54 %; Platelet Count 313 k/uL (150-450); RBC 4.84 m/uL (3.80-5.40); RDW 12.5 % (11.5-15.5); WBC 7.4 k/uL (3.8-10.6)
[2018-01-26 18:52] LABS: Anion Gap 9 mmol/L; Blood Urea Nitrogen 11 mg/dL (7-17); Calcium 8.9 mg/dL (8.4-10.2); Carbon Dioxide 26 mmol/L (22-30); Chloride 106 mmol/L (98-107); Glucose 90 mg/dL (74-99); Potassium 4.4 mmol/L (3.5-5.1); Sodium 141 mmol/L (137-145)
--- NOTE | 2018-01-26 19:07 | CT ---
EXAMINATION TYPE: CT abdomen pelvis wo con DATE OF EXAM: 01/26/2018 COMPARISON: Prior CT abdomen pelvis 02/01/2017 HISTORY: Patient complains of left flank pain and gross hematuria. CT DLP: 1148 mGycm Automated exposure control for dose reduction was used. TECHNIQUE: Helical acquisition of images from the lung bases through the pelvis. FINDINGS: LUNG BASES: No significant abnormality is appreciated. AORTA: No significant abnormality is appreciated. LIVER/GB: Liver shows low attenuation compatible with hepatic steatosis, liver is enlarged, the gallb ladder is absent. PANCREAS: No significant abnormality is seen. SPLEEN: No significant abnormality is seen. ADRENALS: No significant abnormality is seen. KIDNEYS: Punctate nonobstructive renal calculi are present bilaterally. No evident ureteral calculus. No hydronephrosis. REPRODUCTIVE ORGANS: No significant abnormality is seen. URINARY BLADDER: No significant abnormality is seen. The bladder is not distended. BOWEL: Umbilical hernia contains fat. There is no evident bowel obstruction. The appendix is normal. FREE AIR: No Free Air is visible. ASCITES: None visible. PELVIC ADENOPATHY: None visualized. RETROPERITONEAL ADENOPATHY: No Retroperitoneal Adenopathy visible. OSSEOUS STRUCTURES: Bilateral spondylolysis present at L5. There is an anterolisthesis grade 1 L5-S1 with associated loss of disc height. IMPRESSION: BILATERAL NONOBSTRUCTIVE NEPHROLITHIASIS. HEPATIC STEATOSIS. POSTOP CHANGES.
[2018-01-26 19:38] VITALS: BP 116/66; PULSE 86; RESP 17; TEMP 98.1
== END 2018-01-26 19:37 | disposition home or self-care (01) ==
LOC: EC 17:05
DX: N30.01 Acute cystitis with hematuria (principal); R11.2 Nausea with vomiting, unspecified; E78.5 Hyperlipidemia, unspecified; Z79.899 Other long term (current) drug therapy; Z88.2 Allergy status to sulfonamides; Z90.49 Acquired absence of other specified parts of digestive tract
CPT/HCPCS: 36415; 80048; 85025; 82272; 81001; 81025; 74176; 99285; 96374; 96375 ×2; 96361; J2405; J0696; J1885

== ENCOUNTER 2018-02-25 14:36 | Emergency (ER) | payer OTHER ==
[2018-02-25 14:51] VITALS: BP 143/99; PULSE 90; RESP 18; TEMP 97.1
--- NOTE | 2018-02-25 15:42 | XR ---
EXAMINATION TYPE: XR lumbar spine 2 or 3V DATE OF EXAM: 02/25/2018 CLINICAL HISTORY: Low back pain after twisting injury. TECHNIQUE: Frontal and lateral images of the lumbar spine are obtained. COMPARISON: Lumbar spine x-ray March 03, [address] abdomen and pelvis January 26, 2018 FINDINGS: There are 5 lumbar type vertebral bodies redemonstrated. The lumbar spine shows redemonst rates spondylolisthesis L5-S1 level with moderate to advanced disc space narrowing. Bilateral pars de fects are noted on prior CTs. Vertebral body heights and disc space heights above this are satisfacto ry. Overlying soft tissue is unremarkable. IMPRESSION: Bilateral pars defects L5 level with anterolisthesis L5 on S1 and moderate to advanced di sc space narrowing all redemonstrated.
--- NOTE | 2018-02-25 16:02 | ED ---
General Adult HPI - General Chief complaint: Back Pain/Injury Stated complaint: Back pain Time Seen by Provider: 02/25/18 15:25 Source: patient, RN notes reviewed Mode of arrival: ambulatory Limitations: no limitations - History of Present Illness Initial comments: 33-year-old female presents to the emergency department for a chief complaint of back pain. Patient states she has chronic back pain but it has been exacerbated since last night. Patient states she was at work when she may have twisted wrong as that The Pain Started. Patient Denies Urinary or Bowel Changes. Patient States She Is Urinating As per Normal and Last Went to an Hour Ago. Patient states she takes ibuprofen for pain relief usually but it is not helping much right now. Patient states Flexeril does not help either. Patient states there is a shooting pain down her right leg. Patient states she has full sensation and movement in the right lower extremity. Patient denies any pain in the neck. Patient denies any falls or trauma. - Related Data Home Medications Medication Instructions Recorded Confirmed ALPRAZolam [Xanax] 0.5 mg PO DAILY PRN 04/10/14 02/25/18 Atorvastatin [Lipitor] 80 mg PO HS 02/01/17 02/25/18 HYDROcodone/APAP 5-325MG [[place]arter 1 tab PO Q4HR PRN 02/25/18 02/25/18 5-325] Previous Rx's Medication Instructions Recorded Ibuprofen [Motrin] 600 mg PO Q6HR PRN #20 tab 01/26/18 methylPREDNISolone Dose Pack 4 mg PO DIRECTED #21 package 02/25/18 [Medrol Dose Pack] Allergies Allergy/AdvReac Type Severity Reaction Status Date / Time sulfamethoxazole Allergy Rash/Hives Verified 02/25/18 15:41 [From Bactrim] trimethoprim [From Bactrim] Allergy Rash/Hives Verified 02/25/18 15:41 Review of Systems ROS Statement: Those systems with pertinent positive or pertinent negative responses have been documented in the HPI. ROS Other: All systems not noted in ROS Statement are negative. Past Medical History Past Medical History: Hyperlipidemia, Hypertension Additional Past Medical History / Comment(s): chronic back pain, vertigo History of Any Multi-Drug Resistant Organisms: None Reported Past Surgical History: Cholecystectomy, Orthopedic Surgery Additional Past Surgical History / Comment(s): elbow, novasure procedure, carpal tunnel repair bilateral hands Past Psychological History: Anxiety Smoking Status: Never smoker Past Alcohol Use History: Rare Past Drug Use History: None Reported General Exam Limitations: no limitations Neck exam: Present: normal inspection, full ROM. Absent: tenderness, meningismus, lymphadenopathy Respiratory exam: Present: normal lung sounds bilaterally. Absent: respiratory distress, wheezes, rales, rhonchi, stridor Cardiovascular Exam: Present: regular rate, normal rhythm, normal heart sounds. Absent: systolic murmur, diastolic murmur, rubs, gallop, clicks Extremities exam: Present: normal inspection, full ROM, normal capillary refill , other (Pedal pulse and posterior tibial pulse 2+ in the right lower extremity. Patient has full range of motion of the right foot as well as intact sensation to light touch in the right lower extremity. Capillary refill less than 2 seconds in the right foot nail bed.). Absent: tenderness, pedal edema, joint swelling, calf tenderness Back exam: Present: tenderness (Patient has some tenderness to the right buttock. No tenderness in the spine.). Absent: full ROM (Patient has limited extension of the low back as well as twisting to the right. She is able to flex twist to the left and laterally bend bilaterally.), CVA tenderness (R), CVA tenderness (L), vertebral tenderness Neurological exam: Present: alert, oriented X3, CN II-XII intact Psychiatric exam: Present: normal affect, normal mood Course Vital Signs 02/25/18 14:47 Temperature 97.1 F L Pulse Rate 90 Respiratory 18 Rate Blood Pressure 143/99 O2 Sat by Pulse 96 Oximetry Medical Decision Making - Medical Decision Making 33-year-old female presents to the emergency department for chief complaint of acute on chronic back pain times one day. Patient states she was at work last night when she may have twisted wrong. Patient denies any falls or trauma. Patient denies any bladder or bowel changes. Patient has a shooting pain into her right buttock and down her right leg. Neurovascular intact in the right lower extremity. X-ray was ordered of the lumbar spine which showed bilateral pars defects at L5 with and anterolisthesis of L5 on S1. There is moderate to advanced disc space narrowing. All of the findings were redemonstrated and previous CTs according to the radiologist. Dr. David has spoken with her about these findings in the past. Patient was referred to Dr. Tolentino. She will follow-up with him in her primary care provider in one to 2 days. Patient will take a Medrol Dosepak to decrease inflammation if the nerve is inflamed. She will continue to take ibuprofen which she takes for chronic back pain. Patient does not want Flexeril as she states it does not work for her. She will return to the emergency Department if she has worsening symptoms or if she has bladder or bowel changes. Disposition Clinical Impression: Mechanical back pain Disposition: HOME SELF-CARE Condition: Good Instructions: Acute Low Back Pain (ED), Chronic Back Pain (ED) Additional Instructions: Please follow up with primary care doctor in one to 2 days. Please return to the emergency department if you have any worsening symptoms or experience bladder or bowel changes. Please follow-up with Dr. Tolentino as well. Continue to take ibuprofen for pain relief and steroid dose pack as directed. Prescriptions: methylPREDNISolone Dose Pack [Medrol Dose Pack] 4 mg PO DIRECTED #21 package Referrals: Hemant David MD [Primary Care Provider] - 1-2 days Bo Tolentino DO [Doctor of Osteopathic Medicine] - 1-2 days Time of Disposition: 16:02
== END 2018-02-25 16:07 | disposition home or self-care (01) ==
LOC: EC 14:36
DX: M54.9 Dorsalgia, unspecified (principal); G89.29 Other chronic pain; M48.07 Spinal stenosis, lumbosacral region; Z88.2 Allergy status to sulfonamides; E78.5 Hyperlipidemia, unspecified; Z79.899 Other long term (current) drug therapy
CPT/HCPCS: 72100; 99284

== ENCOUNTER 2018-06-16 14:14 | Emergency (ER) | payer OTHER ==
[2018-06-16] MEDS ORDERED: MECLIZINE 12.5 MG TAB PO STA (16:35)
[2018-06-16] MEDS ORDERED: SODIUM CHLORIDE 0.9% 1,000 ML IV STA (16:35)
--- NOTE | 2018-06-16 16:49 | ED ---
General Adult HPI - General Chief complaint: Dizziness Stated complaint: Dizziness Time Seen by Provider: 06/16/18 16:25 Source: patient, RN notes reviewed Mode of arrival: ambulatory Limitations: no limitations - History of Present Illness Initial comments: Patient 33-year-old female significant past medical history for vertigo, presented to the emergency room today with chief complaint of dizziness that started this morning when she woke up. Patient states she was laying in bed she woke up went to sit up and started feeling dizzy. She describes it as the room spinning. Patient states she laid back down. She states she did feel little bit better but when she sat back up again symptoms resume. Patient does admit to feeling nauseated. Patient denies any other complaints or symptoms. Patient denies any recent fever, chills, shortness of breath, chest pain, back pain, abdominal pain, dysuria or hematuria, constipation or diarrhea, headaches or visual changes, or any other complaints. - Related Data Home Medications Medication Instructions Recorded Confirmed ALPRAZolam [Xanax] 0.5 mg PO DAILY PRN 04/10/14 06/16/18 Atorvastatin [Lipitor] 80 mg PO HS 02/01/17 06/16/18 HYDROcodone/APAP 5-325MG [[place] 1 tab PO Q4HR PRN 02/25/18 06/16/18 5-325] Ibuprofen [Motrin] 800 mg PO TID 06/16/18 06/16/18 Previous Rx's Medication Instructions Recorded Meclizine [Antivert] 25 mg PO DAILY 10 Days tab 06/16/18 Allergies Allergy/AdvReac Type Severity Reaction Status Date / Time sulfamethoxazole Allergy Rash/Hives Verified 06/16/18 16:57 [From Bactrim] trimethoprim [From Bactrim] Allergy Rash/Hives Verified 06/16/18 16:57 Review of Systems ROS Statement: Those systems with pertinent positive or pertinent negative responses have been documented in the HPI. ROS Other: All systems not noted in ROS Statement are negative. Past Medical History Past Medical History: Hyperlipidemia, Hypertension Additional Past Medical History / Comment(s): chronic back pain, vertigo History of Any Multi-Drug Resistant Organisms: None Reported Past Surgical History: Cholecystectomy, Orthopedic Surgery Additional Past Surgical History / Comment(s): elbow, novasure procedure, carpal tunnel repair bilateral hands Past Psychological History: Anxiety Smoking Status: Never smoker Past Alcohol Use History: Rare Past Drug Use History: None Reported General Exam Limitations: no limitations Course Vital Signs 06/16/18 06/16/18 14:59 16:50 Temperature 97.9 F Pulse Rate 68 69 Respiratory 18 16 Rate Blood Pressure 135/95 147/93 O2 Sat by Pulse 97 97 Oximetry EKG Findings - EKG Comments: EKG Findings:: EKG performed at 1651: Shows normal sinus rhythm at 62 bpm. AK interval 164. QRS 88. QT/QTc 446/452. No Acute changes. Medical Decision Making - Medical Decision Making Patient reexamined at this time shows no signs of distress. She does not that she is feeling much better here in the emergency room after medications of meclizine and IV fluids. Patient labs been reviewed. EKG showing sinus rhythm. Patient will be discharged home and continued on meclizine advised follow-up family doctor return here to the emergency room if any symptoms increase worsen. Patient states understanding and is in agreement. - Lab Data Result diagrams: 06/16/18 16:51 06/16/18 16:51 Lab Results 06/16/18 06/16/18 06/16/18 Range/Units 16:51 16:51 16:51 WBC 6.7 (3.8-10.6) k/uL RBC 5.10 (3.80-5.40) m/uL Hgb 14.1 (11.4-16.0) gm/dL Hct 42.8 (34.0-46.0) % MCV 83.9 (80.0-100.0) fL MCH 27.7 (25.0-35.0) pg MCHC 33.0 (31.0-37.0) g/dL RDW 12.8 (11.5-15.5) % Plt Count 295 (150-450) k/uL Neutrophils % 52 % Lymphocytes % 37 % Monocytes % 6 % Eosinophils % 2 % Basophils % 1 % Neutrophils # 3.5 (1.3-7.7) k/uL Lymphocytes # 2.4 (1.0-4.8) k/uL Monocytes # 0.4 (0-1.0) k/uL Eosinophils # 0.2 (0-0.7) k/uL Basophils # 0.1 (0-0.2) k/uL Sodium 139 (137-145) mmol/L Potassium 4.1 (3.5-5.1) mmol/L Chloride 105 (98-107) mmol/L Carbon Dioxide 28 (22-30) mmol/L Anion Gap 6 mmol/L BUN 7 (7-17) mg/dL Creatinine 0.60 (0.52-1.04) mg/dL Est GFR (CKD-EPI)AfAm >90 (>60 ml/min/1.73 sqM) Est GFR (CKD-EPI)NonAf >90 (>60 ml/min/1.73 sqM) Glucose 97 (74-99) mg/dL Calcium 9.2 (8.4-10.2) mg/dL Total Bilirubin 0.4 (0.2-1.3) mg/dL AST 117 H (14-36) U/L ALT 104 H (9-52) U/L Alkaline Phosphatase 69 (38-126) U/L Total Protein 7.3 (6.3-8.2) g/dL Albumin 4.3 (3.5-5.0) g/dL Urine Color Urine Appearance (Clear) Urine pH (5.0-8.0) Ur Specific [place] (1.001-1.035) Urine Protein (Negative) Urine Glucose (UA) (Negative) Urine Ketones (Negative) Urine Blood (Negative) Urine Nitrite (Negative) Urine Bilirubin (Negative) Urine Urobilinogen (<2.0) mg/dL Ur Leukocyte Esterase (Negative) Urine RBC (0-5) /hpf Urine WBC (0-5) /hpf Ur Squamous Epith Cells (0-4) /hpf Urine Mucus (None) /hpf Urine HCG, Qual Not Detected (Not Detectd) 06/16/18 Range/Units 16:51 WBC (3.8-10.6) k/uL RBC (3.80-5.40) m/uL Hgb (11.4-16.0) gm/dL Hct (34.0-46.0) % MCV (80.0-100.0) fL MCH (25.0-35.0) pg MCHC (31.0-37.0) g/dL RDW (11.5-15.5) % Plt Count (150-450) k/uL Neutrophils % % Lymphocytes % % Monocytes % % Eosinophils % % Basophils % % Neutrophils # (1.3-7.7) k/uL Lymphocytes # (1.0-4.8) k/uL Monocytes # (0-1.0) k/uL Eosinophils # (0-0.7) k/uL Basophils # (0-0.2) k/uL Sodium (137-145) mmol/L Potassium (3.5-5.1) mmol/L Chloride (98-107) mmol/L Carbon Dioxide (22-30) mmol/L Anion Gap mmol/L BUN (7-17) mg/dL Creatinine (0.52-1.04) mg/dL Est GFR (CKD-EPI)AfAm (>60 ml/min/1.73 sqM) Est GFR (CKD-EPI)NonAf (>60 ml/min/1.73 sqM) Glucose (74-99) mg/dL Calcium (8.4-10.2) mg/dL Total Bilirubin (0.2-1.3) mg/dL AST (14-36) U/L ALT (9-52) U/L Alkaline Phosphatase (38-126) U/L Total Protein (6.3-8.2) g/dL Albumin (3.5-5.0) g/dL Urine Color Yellow Urine Appearance Clear (Clear) Urine pH 8.0 (5.0-8.0) Ur Specific [place] 1.013 (1.001-1.035) Urine Protein Negative (Negative) Urine Glucose (UA) Negative (Negative) Urine Ketones Negative (Negative) Urine Blood Negative (Negative) Urine Nitrite Negative (Negative) Urine Bilirubin Negative (Negative) Urine Urobilinogen <2.0 (<2.0) mg/dL Ur Leukocyte Esterase Small H (Negative) Urine RBC 1 (0-5) /hpf Urine WBC 2 (0-5) /hpf Ur Squamous Epith Cells 4 (0-4) /hpf Urine Mucus Rare H (None) /hpf Urine HCG, Qual (Not Detectd) Disposition Clinical Impression: Vertigo Disposition: HOME SELF-CARE Condition: Good Instructions: Vertigo (ED) Additional Instructions: Please use medication as discussed. Please follow-up with family doctor in the next 2 days of symptoms have not improved. Please return to emergency room if the symptoms increase or worsen or for any other concerns. Prescriptions: Meclizine [Antivert] 25 mg PO DAILY 10 Days tab Is patient prescribed a controlled substance at d/c from ED?: No Referrals: Hemant David MD [Primary Care Provider] - 1-2 days Time of Disposition: 18:25
[2018-06-16 17:01] LABS: Basophils # (A) 0.1 k/uL (0-0.2); Basophils % (A) 1 %; Eosinophils # (A) 0.2 k/uL (0-0.7); Eosinophils % (A) 2 %; HCT 42.8 % (34.0-46.0); HGB 14.1 gm/dL (11.4-16.0); Lymphocytes # (A) 2.4 k/uL (1.0-4.8); Lymphocytes % (A) 37 %; MCH 27.7 pg (25.0-35.0); MCV 83.9 fL (80.0-100.0); Mean Platelet Volume 6.6; Monocytes # (A) 0.4 k/uL (0-1.0); Monocytes % (A) 6 %; Neutrophils # (A) 3.5 k/uL (1.3-7.7); Neutrophils % (A) 52 %; Platelet Count 295 k/uL (150-450); RDW 12.8 % (11.5-15.5); WBC 6.7 k/uL (3.8-10.6)
[2018-06-16 17:14] LABS: ALT 104 U/L (9-52); AST 117 U/L (14-36); Albumin 4.3 g/dL (3.5-5.0); Alkaline Phosphatase 69 U/L (38-126); Anion Gap 6 mmol/L; Appearance,Urine Clear (Clear); Bilirubin,Urine Negative (Negative); Blood Urea Nitrogen 7 mg/dL (7-17); Blood,Urine Negative (Negative); Calcium 9.2 mg/dL (8.4-10.2); Carbon Dioxide 28 mmol/L (22-30); Chloride 105 mmol/L (98-107); Color,Urine Yellow; Glucose 97 mg/dL (74-99); Glucose,Urine (UA) Negative (Negative); Ketones,Urine Negative (Negative); Leukocyte Esterase,Urine Small (Negative); Mucus,Urine Rare /hpf; Nitrite,Urine Negative (Negative); Potassium 4.1 mmol/L (3.5-5.1); Protein,Urine Negative (Negative); RBC,Urine 1 /hpf (0-5); Sodium 139 mmol/L (137-145); Specific Gravity,Urine 1.013 (1.001-1.035); Squamous Epithelial Cell,Urine 4 /hpf (0-4); Total Bilirubin 0.4 mg/dL (0.2-1.3); Total Protein 7.3 g/dL (6.3-8.2); Urobilinogen,Urine <2.0 mg/dL (<2.0); WBC,Urine 2 /hpf (0-5)
[2018-06-16 18:59] VITALS: BP 145/83; PULSE 64; RESP 18; TEMP 97.6
== END 2018-06-16 18:59 | disposition home or self-care (01) ==
LOC: EC 14:14
DX: R42 Dizziness and giddiness (principal); R11.0 Nausea; E78.5 Hyperlipidemia, unspecified; Z79.899 Other long term (current) drug therapy; Z79.1 Long term (current) use of non-steroidal anti-inflammatories (NSAID); Z88.2 Allergy status to sulfonamides
CPT/HCPCS: 36415; 80053; 81001; 81025; 85025; 96360; 96361; 99284

== ENCOUNTER → 2018-07-05 | Outpatient (CLI) | payer OTHER ==
[2018-07-05 13:34] VITALS: BP 128/74; PULSE 74; RESP 16
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
== END | disposition home or self-care (01) ==
LOC: PNWHC3 13:00
PROVIDERS: ATTEND Specialist
DX: G89.29 Other chronic pain (principal); M47.816 Spondylosis without myelopathy or radiculopathy, lumbar region; Z79.899 Other long term (current) drug therapy; Z79.891 Long term (current) use of opiate analgesic; Z79.1 Long term (current) use of non-steroidal anti-inflammatories (NSAID)
CPT/HCPCS: 99211

== ENCOUNTER 2018-07-26 15:04 | Emergency (ER) | payer OTHER ==
[2018-07-26 15:35] VITALS: RESP 18
[2018-07-26] MEDS ORDERED: IPRATROPIUM-ALBUTEROL 3 ML NEB INHALATION STA (15:52)
--- NOTE | 2018-07-26 16:03 | ED ---
General Adult HPI - General Chief complaint: Upper Respiratory Infection Stated complaint: cough Source: patient, RN notes reviewed Mode of arrival: ambulatory Limitations: no limitations - History of Present Illness Initial comments: Patient's a 33-year-old female presenting to the emergency room today with a chief complaint of cough congestion over the last 2 days. Patient states that cough started when she was at work the other day. 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 She states that she's had some congestion since. No sputum production. Patient states that the cough has been keeping her up at night. She denies any other complaints or symptoms. Patient denies any recent fever, chills, shortness of breath, chest pain, back pain, abdominal pain, nausea or vomiting, numbness or tingling, headaches or visual changes, or any other complaints. - Related Data Home Medications Medication Instructions Recorded Confirmed ALPRAZolam [Xanax] 0.5 mg PO DAILY PRN 04/10/14 06/16/18 Atorvastatin [Lipitor] 80 mg PO HS 02/01/17 06/16/18 HYDROcodone/APAP 5-325MG [[place] 1 tab PO Q4HR PRN 02/25/18 06/16/18 5-325] Ibuprofen [Motrin] 800 mg PO TID 06/16/18 06/16/18 Previous Rx's Medication Instructions Recorded Meclizine [Antivert] 25 mg PO DAILY 10 Days tab 06/16/18 Albuterol Inhaler [Ventolin Hfa 1 - 2 puff INHALATION Q4-6H PRN #1 07/26/18 Inhaler] inhaler Famotidine [Pepcid] 20 mg PO BID #20 tablet 07/26/18 Allergies Allergy/AdvReac Type Severity Reaction Status Date / Time sulfamethoxazole Allergy Rash/Hives Verified 07/05/18 13:21 [From Bactrim] trimethoprim [From Bactrim] Allergy Rash/Hives Verified 07/05/18 13:21 Review of Systems ROS Statement: Those systems with pertinent positive or pertinent negative responses have been documented in the HPI. ROS Other: All systems not noted in ROS Statement are negative. Past Medical History Past Medical History: Hyperlipidemia, Hypertension Additional Past Medical History / Comment(s): chronic back pain, vertigo History of Any Multi-Drug Resistant Organisms: None Reported Past Surgical History: Cholecystectomy, Orthopedic Surgery Additional Past Surgical History / Comment(s): elbow, novasure procedure, carpal tunnel repair bilateral hands Past Psychological History: Anxiety Smoking Status: Never smoker Past Alcohol Use History: None Reported Past Drug Use History: None Reported General Exam - General Exam Comments Initial Comments: General: The patient is awake and alert, in no distress, and does not appear acutely ill. Eye: Extra-ocular movements are intact. No nystagmus. There is normal conjunctiva bilaterally. No signs of icterus. Ears, nose, mouth and throat: There are moist mucous membranes and no oral lesions. Neck: The neck is supple, there is no tenderness or JVD. Cardiovascular: There is a regular rate and rhythm. No murmur, rub or gallop is appreciated. Respiratory: Lungs are clear to auscultation, respirations are non-labored, breath sounds are equal. No wheezes, stridor, rales, or rhonchi. Musculoskeletal: Normal ROM, no tenderness. Sensation intact. Strength 5/5. Pulses equal bilaterally 2+. Neurological: A&O x 3. CN II-XII intact, There are no obvious motor or sensory deficits. Coordination appears grossly intact. Speech is normal. Skin: Skin is warm and dry and no rashes or lesions are noted. Psychiatric: Cooperative, appropriate mood & affect, normal judgment. Limitations: no limitations Course Vital Signs 07/26/18 07/26/18 07/26/18 15:32 16:35 16:44 Temperature 98.1 F Pulse Rate 81 78 84 Respiratory 18 Rate Blood Pressure 131/93 O2 Sat by Pulse 99 Oximetry Medical Decision Making - Medical Decision Making Patient reexamined at this time shows no signs of distress. After breathing treatment she does admit to improvement. Spasm of the airway. Patient will be given an inhaler. Was also discussed about possible ALLERGIES causing cough and as reflux. She admits to history of as reflux but states she doesn't take and pink. She'll be Prescribed Pepcid as well. Patient is advised follow-up family doctor return if symptoms increase or worsen. Chest x-ray was reviewed by myself along with Dr. Campos showing no acute abnormality. Disposition Clinical Impression: Bronchospasm Disposition: HOME SELF-CARE Condition: Good Instructions: Bronchospasm (ED) Additional Instructions: Please use medication as discussed. Please follow-up with family doctor in the next 2 days of symptoms have not improved. Please return to emergency room if the symptoms increase or worsen or for any other concerns. Prescriptions: Albuterol Inhaler [Ventolin Hfa Inhaler] 1 - 2 puff INHALATION Q4-6H PRN #1 inhaler PRN Reason: Cough Famotidine [Pepcid] 20 mg PO BID #20 tablet Is patient prescribed a controlled substance at d/c from ED?: No Referrals: Hemant David MD [Primary Care Provider] - 1-2 days Time of Disposition: 16:53
[2018-07-26 17:10] VITALS: BP 151/78; PULSE 68; TEMP 97.1
--- NOTE | 2018-07-26 17:17 | XR ---
EXAMINATION TYPE: XR chest 2V DATE OF EXAM: 07/26/2018 COMPARISON: 10/01/2017 INDICATION: Cough congestion TECHNIQUE: Frontal and lateral views of the chest are obtained. FINDINGS: The heart size is normal. The pulmonary vasculature is normal. The lungs are clear. IMPRESSION: 1. No acute pulmonary process.
== END 2018-07-26 17:09 | disposition home or self-care (01) ==
LOC: EC 15:04
DX: J98.01 Acute bronchospasm (principal); E78.5 Hyperlipidemia, unspecified; Z79.899 Other long term (current) drug therapy; Z88.1 Allergy status to other antibiotic agents; Z88.2 Allergy status to sulfonamides
CPT/HCPCS: 71046; 94640; 99283

== ENCOUNTER 2018-08-07 07:16 | Day surgery (SDC) | payer OTHER ==
[2018-08-02 11:07] VITALS: BMI 35.5
[~2018-08-07 07:16] MED LIST: LACTATED RINGERS 1,000 ML IV SCH
[2018-08-07 08:04] VITALS: RESP 16; TEMP 97.8
[2018-08-07] MEDS ORDERED: LIDOCAINE 1% 20 ML VIAL (10MG/ML) FOR IV START INTRADERMA ONE (08:14)
--- NOTE | 2018-08-07 09:12 | P.PCN ---
Date of Procedure: 08/07/18 Surgeon: Annette Sanches Pathology: none sent Condition: stable Disposition: PACU Description of Procedure: PREOPERATIVE DIAGNOSIS : 1- Lumbar spondylosis with Facet Arthropathy without myelopathy . 2- morbid obesity POSTOPERATIVE DIAGNOSIS: 1- Lumbar spondylosis with Facet Arthropathy without myelopathy . 2- morbid obesity PROCEDURE: Diagnostic bilateral L3 -4 , L4 -5 , and L5-S1 medial branch block under fluoroscopy ANESTHESIA: Local with 1% lidocaine; IV sedation with Versed 2 mg . EBL: Negligible COMPLICATION: None. PROCEDURE INDICATION: Chronic low back pain secondary to Facet arthropathy unresponsive to conservative treatment. PROCEDURE DESCRIPTION: the patient was seen and identified in the preop holding area , risks and benefits and possible complications of the procedure and alternatives were discussed with the patient, and the patient agreed to proceed with the procedure and signed the consent. IV was started and vital signs monitored during the procedure and fluoroscopy was used to maximize the benefit and accuracy of the needle placement, sedation was given to decrease patient anxiety, patient was taken to the procedure room and placed in prone position vital signs monitored. The patient was brought into the procedure room and placed in prone position. Skin was prepped with Chloraprep and draped in a sterile manner. Lidocaine 1 % was used to numb the skin up at the target points that were chosen as follows : at the L5-S1 level which corresponds to the dorsal ramus of L5 the target points were at the superior medial aspect of the sacral ala on each side of the spine on the AP view of fluoroscopy, and for theL2, L3 and L4 medial branches the target points were the connection between the transverse process and the superior to go process of L3, L4 and L5 respectively on the oblique views of fluoroscopy. I used 22-gauge 3-1/2 inch Quincke spinal needles for this procedure and after contacting bone at the target points mentioned above I injected 1 mL of a mixture of Depo-Medrol 40 mg +7 MLS of ropivacaine 0.5% PF . Patient tolerated procedure well. At the end of the procedure the needles removed and a bandage applied after the skin was cleaned the cleaning solution. patient was then taken to the recovery room in stable condition and monitored in the recovery room for 20-30 minutes and discharged home in stable condition after discharge criteria met . Next time we will use the 5 inch 22-gauge Quincke spinal needles.
[2018-08-07] MEDS ORDERED: IV FLUID CONTINUATION 1,000 ML IV ONE (09:16)
[2018-08-07 09:33] VITALS: BP 117/68; PULSE 70
--- NOTE | 2018-08-07 11:24 | FL ---
EXAMINATION TYPE: FL guided pain mgmt statistic DATE OF EXAM: 08/07/2018 HISTORY: Pain 11sec fluoro time,3 images scanned
== END 2018-08-07 09:56 | disposition home or self-care (01) ==
LOC: ORPAIN 07:16
PROVIDERS: ATTEND Anesthesiology
DX: G89.29 Other chronic pain (principal); M47.816 Spondylosis without myelopathy or radiculopathy, lumbar region; E66.01 Morbid (severe) obesity due to excess calories; Z88.2 Allergy status to sulfonamides; Z88.3 Allergy status to other anti-infective agents; Z68.35 Body mass index [BMI] 35.0-35.9, adult
CPT/HCPCS: 81025; 64493; 64494; 64495; J2250; J1030; 99152

== ENCOUNTER 2018-08-11 16:39 | Emergency (ER) | payer OTHER ==
[2018-08-11 17:29] VITALS: RESP 18
[2018-08-11 18:18] LABS: Appearance,Urine Clear (Clear); Bilirubin,Urine Negative (Negative); Blood,Urine Negative (Negative); Color,Urine Yellow; Glucose,Urine (UA) Negative (Negative); Ketones,Urine Negative (Negative); Leukocyte Esterase,Urine Moderate (Negative); Mucus,Urine Rare /hpf; Nitrite,Urine Negative (Negative); PH, Urine 6.5 (5.0-8.0); Protein,Urine Negative (Negative); RBC,Urine 1 /hpf (0-5); Specific Gravity,Urine 1.019 (1.001-1.035); Squamous Epithelial Cell,Urine 5 /hpf (0-4); Urobilinogen,Urine <2.0 mg/dL (<2.0); WBC,Urine 4 /hpf (0-5)
[2018-08-11 18:35] LABS: Basophils # (A) 0.1 k/uL (0-0.2); Basophils % (A) 1 %; Eosinophils # (A) 0.3 k/uL (0-0.7); Eosinophils % (A) 2 %; HCT 43.5 % (34.0-46.0); HGB 14.7 gm/dL (11.4-16.0); Lymphocytes # (A) 2.7 k/uL (1.0-4.8); Lymphocytes % (A) 25 %; MCH 28.3 pg (25.0-35.0); MCHC 33.8 g/dL (31.0-37.0); MCV 83.8 fL (80.0-100.0); Mean Platelet Volume 6.9; Monocytes # (A) 0.5 k/uL (0-1.0); Monocytes % (A) 5 %; Neutrophils # (A) 7.3 k/uL (1.3-7.7); Neutrophils % (A) 66 %; Platelet Count 326 k/uL (150-450); RBC 5.19 m/uL (3.80-5.40); RDW 13.1 % (11.5-15.5)
[2018-08-11 18:51] LABS: ALT 163 U/L (9-52); AST 225 U/L (14-36); Albumin 4.2 g/dL (3.5-5.0); Alkaline Phosphatase 77 U/L (38-126); Amylase 31 U/L (30-110); Anion Gap 10 mmol/L; Blood Urea Nitrogen 9 mg/dL (7-17); Calcium 9.1 mg/dL (8.4-10.2); Carbon Dioxide 28 mmol/L (22-30); Chloride 102 mmol/L (98-107); Glucose 107 mg/dL (74-99); Lipase 98 U/L (23-300); Potassium 3.9 mmol/L (3.5-5.1); Sodium 140 mmol/L (137-145); Total Bilirubin 0.4 mg/dL (0.2-1.3); Total Protein 7.8 g/dL (6.3-8.2)
[2018-08-11] MEDS ORDERED: KETOROLAC 30 MG/ML 1 ML VIAL IVP STA (19:22)
[2018-08-11] MEDS ORDERED: SODIUM CHLORIDE 0.9% 1,000 ML IV STA (19:22)
--- NOTE | 2018-08-11 19:31 | ED ---
General Adult HPI - General Chief complaint: Abdominal Pain Stated complaint: abd pain Time Seen by Provider: 08/11/18 19:04 Source: patient, RN notes reviewed Mode of arrival: ambulatory Limitations: no limitations - History of Present Illness Initial comments: 33-year-old female presents to the emergency department for a chief complaint of sharp lower abdominal pain 12 hours. Patient states she noticed the pain this morning. Patient states it is worse when she lays in certain ways. She states it felt better today when she was lying back in her recliner. Patient states she has been having normal bowel movements with the last one being yesterday. Patient denies any pain with urination. Patient denies any fevers or chills at home. Patient states she is eating and drinking normally. She denies nausea or vomiting. Patient did have a cholecystectomy 15 years ago. Patient denies any chance of or concern for sexually transmitted diseases. Patient states she was recently tested for gonorrhea and chlamydia 3 months ago. Patient denies any vaginal discharge. Patient has no other complaints at this time including shortness of breath, chest pain, abdominal pain, nausea or vomiting, headache, or visual changes. - Related Data Home Medications Medication Instructions Recorded Confirmed ALPRAZolam [Xanax] 0.5 mg PO DAILY PRN 04/10/14 08/11/18 Atorvastatin [Lipitor] 80 mg PO HS 02/01/17 08/11/18 Ibuprofen [Motrin] 800 mg PO TID 06/16/18 08/11/18 Albuterol Inhaler [Ventolin Hfa 1 - 2 puff INHALATION Q4-6H PRN 08/11/18 Inhaler] Allergies Allergy/AdvReac Type Severity Reaction Status Date / Time sulfamethoxazole Allergy Rash/Hives Verified 08/11/18 19:26 [From Bactrim] trimethoprim [From Bactrim] Allergy Rash/Hives Verified 08/11/18 19:26 Review of Systems ROS Statement: Those systems with pertinent positive or pertinent negative responses have been documented in the HPI. ROS Other: All systems not noted in ROS Statement are negative. Past Medical History Past Medical History: Hyperlipidemia, Hypertension Additional Past Medical History / Comment(s): chronic back pain, History of Any Multi-Drug Resistant Organisms: None Reported Past Surgical History: Cholecystectomy, Orthopedic Surgery Additional Past Surgical History / Comment(s): elbow, novasure procedure, carpal tunnel repair bilateral hands Past Anesthesia/Blood Transfusion Reactions: No Reported Reaction Past Psychological History: Anxiety Smoking Status: Never smoker Past Alcohol Use History: None Reported Past Drug Use History: None Reported General Exam Limitations: no limitations General appearance: alert, in no apparent distress (Well appearing, laying in bed watching TV. She is pleasant and cooperative.) Head exam: Present: atraumatic, normocephalic, normal inspection Eye exam: Present: normal appearance, PERRL, EOMI. Absent: scleral icterus, conjunctival injection, periorbital swelling, periorbital tenderness ENT exam: Present: normal exam, normal oropharynx, mucous membranes moist, TM's normal bilaterally, normal external ear exam Neck exam: Present: normal inspection, full ROM. Absent: tenderness, meningismus, lymphadenopathy Respiratory exam: Present: normal lung sounds bilaterally. Absent: respiratory distress, wheezes, rales, rhonchi, stridor Cardiovascular Exam: Present: regular rate, normal rhythm, normal heart sounds. Absent: systolic murmur, diastolic murmur, rubs, gallop, clicks GI/Abdominal exam: Present: soft, tenderness (Mild Suprapubic tenderness without guarding or rebound. Patient also has minimal left lower quadrant tenderness.), normal bowel sounds, other (Negative obturator and psoas signs. No McBurney point tenderness.). Absent: distended, guarding, rebound, rigid External exam: Present: normal external exam. Absent: erythema, swelling, lesions, lacerations, ecchymosis Speculum exam: Present: normal speculum exam. Absent: erythema, vaginal discharge, cervical discharge, vaginal bleeding, foreign body By manual exam: Present: normal by manual exam, adnexal tenderness (mild right and left adnexal tenderness), uterine tenderness. Absent: cervical motion tenderness, adnexal mass Extremities exam: Present: full ROM (Moving all extremities without difficulty) Neurological exam: Present: alert, oriented X3, CN II-XII intact Psychiatric exam: Present: normal affect, normal mood Course Vital Signs 08/11/18 08/11/18 17:27 19:22 Temperature 97.9 F 97.1 F L Pulse Rate 79 70 Respiratory 18 18 Rate Blood Pressure 140/95 133/82 O2 Sat by Pulse 98 97 Oximetry Medical Decision Making - Medical Decision Making 33-year-old with sharp suprapubic pain 12 hours. No nausea or vomiting. Patient is eating and drinking normally. Patient is passing stool normally. No fevers or chills. On exam patient does have mild suprapubic tenderness as well as mild right and left lower quadrant tenderness. On pelvic exam patient does show mild uterine and right and left adnexal tenderness. No vaginal discharge. CBC and CMP are unremarkable. Urine does not show evidence of infection but will be cultured. HCG negative. X-ray KUB shows no sign of intestinal obstruction or pneumoperitoneum. Fecal pattern is normal on radiology read but does appear slightly constipated when reviewed with myself and Dr. Cunningham. Ultrasound of the pelvis shows a complex right ovarian cyst. No evidence of torsion. Patient's tenderness likely related to complex cyst as she is tender over the ovary and uterus. Mild constipation noted on x-ray could also be contibuting to pain. Discussed with Dr. Cunningham. On reexamination , the patient's pain is much improved after receiving Toradol. Did discuss possibility of doing a CAT scan and patient states she would rather go home and monitor symptoms and return if anything worsens. Patient will try MiraLAX over- the-counter. Patient will follow up with primary care as well as [facility]. She will return if she has any worsening symptoms. - Lab Data Result diagrams: 08/11/18 18:26 08/11/18 18:26 Lab Results 08/11/18 08/11/18 08/11/18 Range/Units 17:55 17:55 18:26 WBC (3.8-10.6) k/uL RBC (3.80-5.40) m/uL Hgb (11.4-16.0) gm/dL Hct (34.0-46.0) % MCV (80.0-100.0) fL MCH (25.0-35.0) pg MCHC (31.0-37.0) g/dL RDW (11.5-15.5) % Plt Count (150-450) k/uL Neutrophils % % Lymphocytes % % Monocytes % % Eosinophils % % Basophils % % Neutrophils # (1.3-7.7) k/uL Lymphocytes # (1.0-4.8) k/uL Monocytes # (0-1.0) k/uL Eosinophils # (0-0.7) k/uL Basophils # (0-0.2) k/uL Sodium 140 (137-145) mmol/L Potassium 3.9 (3.5-5.1) mmol/L Chloride 102 (98-107) mmol/L Carbon Dioxide 28 (22-30) mmol/L Anion Gap 10 mmol/L BUN 9 (7-17) mg/dL Creatinine 0.58 (0.52-1.04) mg/dL Est GFR (CKD-EPI)AfAm >90 (>60 ml/min/1.73 sqM) Est GFR (CKD-EPI)NonAf >90 (>60 ml/min/1.73 sqM) Glucose 107 H (74-99) mg/dL Calcium 9.1 (8.4-10.2) mg/dL Total Bilirubin 0.4 (0.2-1.3) mg/dL AST 225 H (14-36) U/L ALT 163 H (9-52) U/L Alkaline Phosphatase 77 (38-126) U/L Total Protein 7.8 (6.3-8.2) g/dL Albumin 4.2 (3.5-5.0) g/dL Amylase 31 (30-110) U/L Lipase 98 (23-300) U/L Urine Color Yellow Urine Appearance Clear (Clear) Urine pH 6.5 (5.0-8.0) Ur Specific [place] 1.019 (1.001-1.035) Urine Protein Negative (Negative) Urine Glucose (UA) Negative (Negative) Urine Ketones Negative (Negative) Urine Blood Negative (Negative) Urine Nitrite Negative (Negative) Urine Bilirubin Negative (Negative) Urine Urobilinogen <2.0 (<2.0) mg/dL Ur Leukocyte Esterase Moderate H (Negative) Urine RBC 1 (0-5) /hpf Urine WBC 4 (0-5) /hpf Ur Squamous Epith Cells 5 H (0-4) /hpf Urine Mucus Rare H (None) /hpf Urine HCG, Qual Not Detected (Not Detectd) 08/11/18 Range/Units 18:26 WBC 11.0 H (3.8-10.6) k/uL RBC 5.19 (3.80-5.40) m/uL Hgb 14.7 (11.4-16.0) gm/dL Hct 43.5 (34.0-46.0) % MCV 83.8 (80.0-100.0) fL MCH 28.3 (25.0-35.0) pg MCHC 33.8 (31.0-37.0) g/dL RDW 13.1 (11.5-15.5) % Plt Count 326 (150-450) k/uL Neutrophils % 66 % Lymphocytes % 25 % Monocytes % 5 % Eosinophils % 2 % Basophils % 1 % Neutrophils # 7.3 (1.3-7.7) k/uL Lymphocytes # 2.7 (1.0-4.8) k/uL Monocytes # 0.5 (0-1.0) k/uL Eosinophils # 0.3 (0-0.7) k/uL Basophils # 0.1 (0-0.2) k/uL Sodium (137-145) mmol/L Potassium (3.5-5.1) mmol/L Chloride (98-107) mmol/L Carbon Dioxide (22-30) mmol/L Anion Gap mmol/L BUN (7-17) mg/dL Creatinine (0.52-1.04) mg/dL Est GFR (CKD-EPI)AfAm (>60 ml/min/1.73 sqM) Est GFR (CKD-EPI)NonAf (>60 ml/min/1.73 sqM) Glucose (74-99) mg/dL Calcium (8.4-10.2) mg/dL Total Bilirubin (0.2-1.3) mg/dL AST (14-36) U/L ALT (9-52) U/L Alkaline Phosphatase (38-126) U/L Total Protein (6.3-8.2) g/dL Albumin (3.5-5.0) g/dL Amylase (30-110) U/L Lipase (23-300) U/L Urine Color Urine Appearance (Clear) Urine pH (5.0-8.0) Ur Specific [place] (1.001-1.035) Urine Protein (Negative) Urine Glucose (UA) (Negative) Urine Ketones (Negative) Urine Blood (Negative) Urine Nitrite (Negative) Urine Bilirubin (Negative) Urine Urobilinogen (<2.0) mg/dL Ur Leukocyte Esterase (Negative) Urine RBC (0-5) /hpf Urine WBC (0-5) /hpf Ur Squamous Epith Cells (0-4) /hpf Urine Mucus (None) /hpf Urine HCG, Qual (Not Detectd) Disposition Clinical Impression: Constipation, Ovarian cyst, Abdominal pain Disposition: HOME SELF-CARE Condition: Good Instructions: Abdominal Pain (ED) Additional Instructions: Please try MiraLAX [id number]. Please follow-up with primary care and OB/ IMPLEMENTATION DIRECTOR. Return to the emergency department if you have any worsening symptoms including worsening pain or fevers/chills. Is patient prescribed a controlled substance at d/c from ED?: No Referrals: Hemant David MD [Primary Care Provider] - 1-2 days Escobar Santillan MD [STAFF PHYSICIAN] - 1-2 days Time of Disposition: 21:37
--- NOTE | 2018-08-11 19:46 | XR ---
EXAMINATION TYPE: XR KUB DATE OF EXAM: 08/11/2018 COMPARISON: 07/29/2015 HISTORY: Abdominal pain TECHNIQUE: 2 views upright FINDINGS: There is no sign of intestinal obstruction or pneumoperitoneum. Fecal pattern is normal. Th ere are no pathologic calcifications over the kidneys. IMPRESSION: Nonacute abdomen. No change.
--- NOTE | 2018-08-11 20:50 | US ---
EXAMINATION TYPE: US transvaginal DATE OF EXAM: 08/11/2018 COMPARISON: NONE CLINICAL HISTORY: Pain. pelvic pain, especially upon palpation, started today, h/o and [employer] 2013 TECHNIQUE: TV. Date of LMP: 2012 EXAM MEASUREMENTS: Uterus: 6.6 x 4.7 x 4.2 cm Endometrial Stripe: 0.7 cm Right Ovary: 4.1 x 2.7 x 3.1 cm Left Ovary: 2.6 x 3.0 x 3.0 cm 1. Uterus: Retroverted wnl 2. Endometrium: wnl 3. Right Ovary: 3.0cm cystic area with internal debris noted 4. Left Ovary: wnl Spectral, color and waveform doppler imaging shows good arterial and venous flow within the ovaries ; there is no evidence for ovarian torsion. 5. Bilateral Adnexa: wnl 6. Posterior cul-de-sac: scant amount of free fluid IMPRESSION: Complex right ovarian cyst. Otherwise negative exam. No evidence of torsion.
[2018-08-11 22:00] VITALS: BP 130/81; PULSE 73; TEMP 98
[2018-08-13 07:22] LABS: C. trachomatis,PCR Negative (Neg,Equiv); Chlamydia trachomatis Source Vagina
[2018-08-13 07:53] LABS: N. gonorrhoeae,PCR Negative (Neg,Equiv); Neisseria Source Vagina
== END 2018-08-11 21:59 | disposition home or self-care (01) ==
LOC: EC 16:39
DX: K59.00 Constipation, unspecified (principal); N83.201 Unspecified ovarian cyst, right side; Z32.02 Encounter for pregnancy test, result negative; E78.5 Hyperlipidemia, unspecified; F41.9 Anxiety disorder, unspecified; Z79.899 Other long term (current) drug therapy; Z88.2 Allergy status to sulfonamides; Z90.49 Acquired absence of other specified parts of digestive tract
CPT/HCPCS: 36415; 80053; 82150; 83690; 85025; 81001; 81025; 87491; 87591; 87086; 74018; 93975; 76830; 99284; 96374; 96361 ×2; J1885

== ENCOUNTER 2018-08-21 09:19 | Day surgery (SDC) | payer OTHER ==
[2018-08-16 09:52] VITALS: BMI 35.5
[2018-08-21] MEDS ORDERED: LIDOCAINE 1% 20 ML VIAL (10MG/ML) FOR IV START INTRADERMA ONE (09:43)
--- NOTE | 2018-08-21 11:02 | P.PCN ---
Date of Procedure: 08/21/18 Procedure(s) Performed: PREOPERATIVE DIAGNOSIS : 1- Lumbar spondylosis with Facet Arthropathy without myelopathy . POSTOPERATIVE DIAGNOSIS: 1- Lumbar spondylosis with Facet Arthropathy without myelopathy . PROCEDURE: Diagnostic bilateral L3 -4 , L4 -5 , and L5-S1 medial branch block under fluoroscopy ANESTHESIA: Local with Ropivacain 0.5 % 6 ml , moderate sedation with intravenous Versed 2 mg and Fentanyl 50 mcg. EBL: Minimal COMPLICATION: None. IV FLUIDS: 100 mL of normal saline. PROCEDURE INDICATION: Chronic low back pain secondary to Facet arthropathy unresponsive to conservative treatment. PROCEDURE DESCRIPTION: the patient was seen and identified in the preop holding area , risks and benefits and possible complications of the procedure and alternative were discussed with the patient, and the patient agreed to proceed with the procedure and signed the consent IV was started and vital signs monitored during the procedure and fluoroscopy was used to maximize the benefit and accuracy of the needle placement, and sedation was given to decrease patient anxiety, patient was taken to the procedure room and placed in prone position vital signs monitored in the back prepped with chlorhexidine X3 then under strict sterile technique using a right oblique fluoroscopy ,the junction of the transverse process and the superior articulating process of the right L3- 4 , L4- 5, and L5-S1 vertebra which corresponding to the fluoroscopy image of the eye of the Haseeb dog on the block side for the medial branches and subsequently , after local infiltration of skin and subcu tissuies with Ropivacaine 0.5 % , one mL at each level , then 22-gauge 5 inches long Quincke-type needles , 3 needle was used , each one of them placed at the junction of the base of the transverse process and the superior articular process at the appropriate level, and the needle was advanced until the periosteum contacted, needle placement confirmed with AP oblique and lateral view and after appropriate needle placement confirmed, and after negative aspiration for heme and CSF and there was no paresthesia 1-1/2 mL of Ropivacaine 0.5% mixed with 40 mg Kenalog , then half mL injected at each level after negative aspiration the needle subsequently removed and the same procedure repeated for the left side at left side at L3-4, L4- 5 and L5- S1 levels. At the end of the procedure and the needles removed and a bandage applied after the skin was cleaned the cleaning solution patient taken to recovery room in stable condition and monitors in the recovery room for 20-30 minutes and discharged home in stable condition after discharge criteria met and patient will follow up with the pain clinic in 2-4 weeks
[2018-08-21] MEDS ORDERED: IV FLUID CONTINUATION 500 ML IV ONE (11:06)
--- NOTE | 2018-08-21 11:10 | FL ---
EXAMINATION TYPE: FL guided pain mgmt statistic DATE OF EXAM: 08/21/2018 HISTORY: Pain 3 images scanned. Lumbar pain. [address] Chin.
[2018-08-21 11:11] VITALS: RESP 16
[2018-08-21 11:51] VITALS: BP 119/79; PULSE 63
== END 2018-08-21 11:50 | disposition home or self-care (01) ==
LOC: ORPAIN 09:19
PROVIDERS: ATTEND Specialist
DX: G89.29 Other chronic pain (principal); M47.816 Spondylosis without myelopathy or radiculopathy, lumbar region
CPT/HCPCS: 64493; 64494; 64495; J2250; J3301; J3010; 99152

== ENCOUNTER → 2018-09-06 | Outpatient (CLI) | payer OTHER ==
--- NOTE | 2018-09-06 14:50 | CT ---
EXAMINATION TYPE: CT abdomen pelvis w con DATE OF EXAM: 09/06/2018 COMPARISON: 02/07/2018 HISTORY: 33-year-old female Lower abdominal pain. Elevated liver function. TECHNIQUE: Contiguous axial scanning of the abdomen and pelvis following administration of 100 ml Iso meryl 300 IV contrast. Delayed images through the kidneys and coronal/sagittal reconstructions perform ed. CT DLP: 2240.6 mGycm Automated exposure control for dose reduction was used. FINDINGS: Heart normal size without pericardial effusion. Lung bases clear without pleural effusion. Liver enlarged measuring 23.8 cm with diffuse low-attenuation. Portal venous system is patent. No james iary ductal dilatation. Gallbladder surgically absent. Adrenal glands, right kidney, spleen, and pancreas are within normal limits. Subcentimeter hypodensit y lateral left kidney too small for accurate CT characterization, probable cyst. No dilated small bowel, free fluid, or free air. Oral contrast has reached the cecum. Normal appendix. Mild burden. No pericolonic inflammatory change . Bladder partially distended. Uterus and both ovaries are visualized. Pelvic phleboliths. No abnormal fluid collection in the pelvis or pelvic lymphadenopathy. Bones: Bilateral L5 pars defects with grade 1/grade 2 anterolisthesis at L5-S1 and associated degener ative disc disease. IMPRESSION: 1. 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 CORRELATE WITH LFT's, LIPID PROFILE, AN D PATIENT RISK FACTORS. 2. REDEMONSTRATED GRADE ONE/GRADE 2 ANTEROLISTHESIS AT L5-S1 SECONDARY TO BILATERAL L5 PARS DEFECTS.
== END ==
LOC: RADCTMAIN 12:27
PROVIDERS: ATTEND Family Medicine
DX: K76.0 Fatty (change of) liver, not elsewhere classified (principal)
CPT/HCPCS: 74177; Q9967

== ENCOUNTER → 2018-09-07 | Outpatient (CLI) | payer OTHER ==
[2018-09-07 12:50] VITALS: BP 128/82; PULSE 72; RESP 16
--- NOTE | 2018-09-07 13:29 | P.PAINPG ---
Subjective Progress Note Date: 09/07/18 This is a follow-up visit for this 33 years old female with a chronic history of severe low back pain, she is diagnosed with lumbar spondylosis with facet arthropathy, we have done diagnostic medial branch block lumbar area at L3 4/L4 5/L5-S1 x2 , her pain improved significantly after the block her pain dropped from 8/10, decreased to 2/10 , and she was able to do activity of daily livings without any difficulty, she is very satisfied with the results of the diagnostic block and she want to ,proceed with,the radiofrequency ablation of the medial branch lumbar area. Objective - Vital Signs Vital signs: Vital Signs Temp Pulse 72 09/07/18 12:44 Resp 16 09/07/18 12:44 BP 128/82 09/07/18 12:44 Pulse Ox 96 09/07/18 12:44 Intake & Output 09/06/18 09/07/18 09/07/18 18:59 06:59 18:59 Weight 113.398 kg - Exam Physical Examinations : 1-Constitutiona : Cooperative , not in acute distress . 2-HEENT : nech ; supple , no Lymphadenopathy , normal thyroid size . eyes : no ptosis , no icterus, no photophobia . ENT : normal of hearing , normal oropharynx , no Thrush . 3- Respiratory : Chest clear to auscultations Bilaterally , no wheezing , no Rhonchi . 4- Cardiovascular : regular rate and rhythem , S1 , S2 , no S3 , no S4. 5- Gastrointestinal : abdomen soft no tenderness , bowel sounds , no organomegally . 6- Genitourinary : Defferred . 7- neurologic : Cranial nerve II to XII intact , no focal neurological deffecit . 8-psychatric : alert , oriented X 3 , appropriate affect , intact judgment and insight . 9-Lymphatic : no Lymphadenopathy . 10- musculoskeltal : lumbar spine moter stegnth lower extremities , thigh and legs 5/5 Right side , 5/5 Left side Assessment and Plan Plan: Assessment and plan= chronic low back pain secondary to lumbar spondylosis with lumbar facet arthropathy without myelopathy She had good result after diagnostic medial branch block, the pain decreased more than 70%, she will be good candidate to have radiofrequency ablation of the medial branch lumbar area Time with Patient: Less than 30 PQRS Measure Charge Sheet Measure #130: Documentation of Current Meds in Medical Chart: Patient's medications documented in chart Measure #226: Tobacco Use: Screen & Cessation Intervention: Pt not a tobacco user Measure #111: Pneumonia Vaccination: Pneumococcal vaccine administered or previously received Measure #47: Advance Care Plan: Advance care planning discussed & documented, pt chose/unable to give Measure #412: Opioid Treatment Agreement: No documentation of signed opioid treatment agreement Measure #408: Opioid Therapy Follow-up Evaluation: Patient had NO f/u eval minimum every 3 months during opioid therapy Measure #317: Preventitive Care & Scrn High Bld Press & F/U: Normal blood pressure, f/u not required Measure #128: Body Mass Index (BMI) Screening & Follow-up: BMI documented ABOVE normal parameters - f/u documented Measure #131: Pain Assessment & Follow-up: Pain positive & plan documented, Follow-up scheduled Measure #431: Unhealthy Alcohol Use Preventative Care & Scrn: Patient not identified as an unhealthy alcohol user PQRS Narrative: Smoking Status Never smoker Do You Want the Pneumonia No Vaccine AT THIS TIME? Blood Pressure 128/82 Pain Intensity [Bilateral 0 Lower Back] Scale Used Numeric (1 - 10) Hx Alcohol Use (MH) No Home Medications: Ambulatory Orders ALPRAZolam [Xanax] 0.5 mg PO DAILY PRN 04/10/14 Atorvastatin [Lipitor] 80 mg PO HS 02/01/17 Ibuprofen [Motrin] 800 mg PO TID 06/16/18 Albuterol Inhaler [Ventolin Hfa Inhaler] 1 - 2 puff INHALATION Q4-6H PRN Controlled Substance Measures - Controlled Substance Measures Is patient prescribed a controlled substance at discharge?: No When asked, does pt state using other controlled substances?: No If prescribed controlled substance>3 days was MAPS reviewed?: No If Rx opioid, was Start Talking consent form obtained?: No If opioid is for acute pain is fill amount 7 days or less?: No Was information provided regarding opioid addiction?: No
== END | disposition home or self-care (01) ==
LOC: PNWHC3 12:27
PROVIDERS: ATTEND Specialist
DX: G89.29 Other chronic pain (principal); M47.816 Spondylosis without myelopathy or radiculopathy, lumbar region; M46.96 Unspecified inflammatory spondylopathy, lumbar region; Z79.899 Other long term (current) drug therapy; Z79.1 Long term (current) use of non-steroidal anti-inflammatories (NSAID)
CPT/HCPCS: 99211

== ENCOUNTER → 2018-10-18 | Day surgery (SDC) | payer OTHER ==
[2018-10-11 13:57] VITALS: BMI 35.5
[~2018-10-18] MED LIST changes: -LACTATED RINGERS 1,000 ML IV SCH; +SODIUM CHLORIDE 0.9% 500 ML 500 ML IV ONE
[2018-10-18 06:50] VITALS: RESP 18; TEMP 97.7
--- NOTE | 2018-10-18 07:30 | P.PCN ---
Date of Procedure: 10/18/18 Surgeon: Alexey Ryan Description of Procedure: Procedure(s) Performed: PREOPERATIVE DIAGNOSIS: Bilateral lumbar spondylosis POSTOPERATIVE DIAGNOSIS: PROCEDURES: Right L4, L5, sacral ala Radiofrequency ablation with fluoroscopic guidance SURGEON: Alexey Ryan MD. ANESTHESIA: Moderate sedation with intravenous versed 2 mg and fentanyl 100 mcg and local infiltration with lidocaine 1% 10 ml EBL: Minimal PROCEDURE INDICATION: The patient with low back pain secondary to lumbar facet arthropathy who had more than 70% relief of pain with previous diagnostic lumbar medial branch block with bupivacaine. She presents today for radio frequency ablation on the right side. We will repeat this on the left side at her next appointment. PROCEDURE DESCRIPTION / TECHNIQUE: The patient was seen and identified in the preoperative area. Risks, benefits, complications, including but not limited to risk of infection ,bleeding , allergic reactions to the medications and incomplete pain relief , and alternatives were discussed with the patient, the patient agreed to proceed with the procedure and signed the consent. IV was started. The operative site was marked. Patient was taken to the OR and time out was completed. The patient was placed in the prone position on the procedure table. The lumber area was prepped and draped in the usual sterile fashion. . Vital signs were closely monitored during the procedure .IV sedation was used during the procedure to decrease patients anxiety. Using AP and then oblique fluoroscopy, the ``eye of the Haseeb dog corresponding to the connection between the superior and transverse articular processes of the above-mentioned levels were identified, marked, and localized with 1% lidocaine. Subsequently, a 20 [id number] radiofrequency cannula with a 10-mm active tip was advanced guided by fluoroscopy to each of the ``eyes of the Haseeb dog at each site then underwent sensory testing at 50 Hz and 0 to 1 volt and motor testing at 2.5 Hz and 0 to 3 volt with local stimulation, but no radicular symptoms down the legs. Then the sites underwent radiofrequency thermocoagulation at 80 degrees celsius for 90 seconds after injecting 0.5 ml of PF lidocaine 1%. then After the thermocoagulation done , 1 ml of the block solution containing depomedrol 40 mg and 4 ml of marcaine 0.5% was injected in divided doses at each levels after negative aspiration of CSF and blood and with no paresthesias. Sterile dressings were applied. COMPLICATIONS: No acute complications. DISPOSITION / PLANS: The patient was placed in a supine position and transferred to the recovery area in a stable condition for observation and was discharged from the recovery room after meeting discharge criteria. Home discharge instructions given to the patient by the staff. The patient was reexamined prior to discharge. She will schedule a left lumbar radio frequency ablation in the near future.
[2018-10-18 08:18] VITALS: BP 128/76; PULSE 66
--- NOTE | 2018-10-18 08:24 | FL ---
EXAMINATION TYPE: FL guided pain mgmt statistic DATE OF EXAM: 10/18/2018 HISTORY: Pain 9sec fluoro time, 2 images scanned
== END ==
LOC: ORPAIN 06:20
PROVIDERS: ATTEND Pain Medicine Pain Medicine
DX: M47.816 Spondylosis without myelopathy or radiculopathy, lumbar region (principal); Z88.1 Allergy status to other antibiotic agents; Z88.2 Allergy status to sulfonamides
CPT/HCPCS: 81025; 64635; 64636; J2250; J1030; J2001; J3010; 99152; 99153

== ENCOUNTER 2018-10-23 14:40 | Emergency (ER) | payer OTHER ==
[2018-10-23 14:48] VITALS: RESP 18; TEMP 97.4
[2018-10-23] MEDS ORDERED: SODIUM CHLORIDE 0.9% 1,000 ML IV STA (15:11)
[2018-10-23] MEDS ORDERED: diphenhydrAMINE 50 MG/ML 1 ML VIAL IVP STA (15:11)
[2018-10-23] MEDS ORDERED: ACETAMINOPHEN TAB 500 MG TAB PO STA (15:11)
[2018-10-23] MEDS ORDERED: KETOROLAC 30 MG/ML 1 ML VIAL IVP STA (15:11)
[2018-10-23] MEDS ORDERED: METOCLOPRAMIDE 5 MG/ML 2 ML VIAL IVP STA (15:11)
--- NOTE | 2018-10-23 15:19 | ED ---
Headache HPI - General Chief Complaint: Headache Stated Complaint: Headache Time Seen by Provider: 10/23/18 14:59 Source: RN notes reviewed, old records reviewed Mode of arrival: ambulatory Limitations: no limitations - History of Present Illness Initial Comments: 33-year-old female presents emergency Department chief complaint of intermittent headaches for the past 4 days. Patient states that they seem to come and go. She reports tension of the frontal part of her scalp. She reports that the headaches are worse with bright lights and noises. Patient denies any vomiting but has felt occasionally nauseated. She has had a history of headaches but none such as this in the past. She also reports to a history of lumbar right sided radiofrequency ablation procedure done by Dr. Ryan. Patient states that she tolerated the procedure well that time she denies any peripheral paresthesias. She states that her back is somewhat sort related to the procedure but has otherwise been well. She denies any fever or chills. She denies any changes in urination or bowel habits, she denies any vision changes. She denies any significant neck pain. - Related Data Home Medications Medication Instructions Recorded Confirmed ALPRAZolam [Xanax] 0.5 mg PO DAILY PRN 04/10/14 10/25/18 Atorvastatin [Lipitor] 80 mg PO HS 02/01/17 10/25/18 Ibuprofen [Motrin] 800 mg PO TID PRN 06/16/18 10/25/18 Allergies Allergy/AdvReac Type Severity Reaction Status Date / Time onion Allergy Rash/Hives Verified 10/25/18 16:02 sulfamethoxazole Allergy Rash/Hives Verified 10/25/18 16:02 [From Bactrim] trimethoprim [From Bactrim] Allergy Rash/Hives Verified 10/25/18 16:02 Review of Systems ROS Statement: Those systems with pertinent positive or pertinent negative responses have been documented in the HPI. ROS Other: All systems not noted in ROS Statement are negative. Past Medical History Past Medical History: Hyperlipidemia, Hypertension Additional Past Medical History / Comment(s): chronic back pain, History of Any Multi-Drug Resistant Organisms: None Reported Past Surgical History: Cholecystectomy, Orthopedic Surgery Additional Past Surgical History / Comment(s): elbow, novasure procedure, carpal tunnel repair bilateral hands Past Anesthesia/Blood Transfusion Reactions: No Reported Reaction Past Psychological History: Anxiety Smoking Status: Never smoker - Past Family History Mother Family Medical History: No Reported History Father Family Medical History: No Reported History General Exam - General Exam Comments Initial Comments: This is a 33-year-old female. Well appearing. No acute distress. Limitations: no limitations General appearance: alert, in no apparent distress Head exam: Present: atraumatic, normocephalic, normal inspection Eye exam: Present: normal appearance, PERRL, EOMI. Absent: scleral icterus, conjunctival injection, periorbital swelling ENT exam: Present: normal exam, mucous membranes moist Neck exam: Present: normal inspection. Absent: tenderness, meningismus, lymphadenopathy Respiratory exam: Present: normal lung sounds bilaterally. Absent: respiratory distress, wheezes, rales, rhonchi, stridor Cardiovascular Exam: Present: regular rate, normal rhythm, normal heart sounds. Absent: systolic murmur, diastolic murmur, rubs, gallop, clicks GI/Abdominal exam: Present: soft, normal bowel sounds. Absent: distended, tenderness, guarding, rebound, rigid Neurological exam: Present: alert, oriented X3, CN II-XII intact, normal gait Psychiatric exam: Present: normal affect, normal mood Skin exam: Present: warm, dry, intact, normal color. Absent: rash Course Vital Signs 10/23/18 10/23/18 14:45 18:09 Temperature 97.4 F L 97.4 F L Pulse Rate 78 74 Respiratory 18 18 Rate Blood Pressure 134/87 130/93 O2 Sat by Pulse 97 96 Oximetry Medical Decision Making - Medical Decision Making 33-year-old female presents emergency Department chief complaint of intermittent headaches for the past 4 days. Patient states that they seem to come and go. She reports tension of the frontal part of her scalp. She reports that the headaches are worse with bright lights and noises. Patient was given migraine cocktail. She has no neurological deficits. She reports her headache is diminished.Labs are nromal. Will discharge with migraine medication. Return parameters discussed. - Lab Data Result diagrams: 10/23/18 15:25 10/23/18 15:25 Lab Results 10/23/18 10/23/18 Range/Units 15:25 15:25 WBC 10.5 (3.8-10.6) k/uL RBC 5.16 (3.80-5.40) m/uL Hgb 14.8 (11.4-16.0) gm/dL Hct 43.6 (34.0-46.0) % MCV 84.5 (80.0-100.0) fL MCH 28.6 (25.0-35.0) pg MCHC 33.9 (31.0-37.0) g/dL RDW 13.0 (11.5-15.5) % Plt Count 332 (150-450) k/uL Neutrophils % 63 % Lymphocytes % 28 % Monocytes % 5 % Eosinophils % 2 % Basophils % 1 % Neutrophils # 6.6 (1.3-7.7) k/uL Lymphocytes # 2.9 (1.0-4.8) k/uL Monocytes # 0.6 (0-1.0) k/uL Eosinophils # 0.2 (0-0.7) k/uL Basophils # 0.1 (0-0.2) k/uL Sodium 140 (137-145) mmol/L Potassium 4.8 (3.5-5.1) mmol/L Chloride 105 (98-107) mmol/L Carbon Dioxide 25 (22-30) mmol/L Anion Gap 10 mmol/L BUN 9 (7-17) mg/dL Creatinine 0.51 L (0.52-1.04) mg/dL Est GFR (CKD-EPI)AfAm >90 (>60 ml/min/1.73 sqM) Est GFR (CKD-EPI)NonAf >90 (>60 ml/min/1.73 sqM) Glucose 89 (74-99) mg/dL Calcium 9.5 (8.4-10.2) mg/dL Total Bilirubin 0.6 (0.2-1.3) mg/dL AST 96 H (14-36) U/L ALT 88 H (9-52) U/L Alkaline Phosphatase 63 (38-126) U/L Total Protein 7.8 (6.3-8.2) g/dL Albumin 4.3 (3.5-5.0) g/dL Disposition Clinical Impression: Migraine Disposition: HOME SELF-CARE Condition: Good Instructions: Migraine Headache (ED) Additional Instructions: Advised to rest, return to emergency department if any alarming signs or symptoms occur. Follow-up with primary care provider and neurologist. Is patient prescribed a controlled substance at d/c from ED?: No Referrals: Hemant David MD [Primary Care Provider] - 1-2 days Time of Disposition: 17:35
[2018-10-23 16:47] LABS: Basophils # (A) 0.1 k/uL (0-0.2); Basophils % (A) 1 %; Eosinophils # (A) 0.2 k/uL (0-0.7); Eosinophils % (A) 2 %; HCT 43.6 % (34.0-46.0); HGB 14.8 gm/dL (11.4-16.0); Lymphocytes # (A) 2.9 k/uL (1.0-4.8); Lymphocytes % (A) 28 %; MCH 28.6 pg (25.0-35.0); MCHC 33.9 g/dL (31.0-37.0); MCV 84.5 fL (80.0-100.0); Mean Platelet Volume 6.6; Monocytes # (A) 0.6 k/uL (0-1.0); Monocytes % (A) 5 %; Neutrophils # (A) 6.6 k/uL (1.3-7.7); Neutrophils % (A) 63 %; Platelet Count 332 k/uL (150-450); RBC 5.16 m/uL (3.80-5.40); WBC 10.5 k/uL (3.8-10.6)
[2018-10-23 16:56] LABS: ALT 88 U/L (9-52); AST 96 U/L (14-36); Albumin 4.3 g/dL (3.5-5.0); Alkaline Phosphatase 63 U/L (38-126); Anion Gap 10 mmol/L; Blood Urea Nitrogen 9 mg/dL (7-17); Calcium 9.5 mg/dL (8.4-10.2); Carbon Dioxide 25 mmol/L (22-30); Chloride 105 mmol/L (98-107); Glucose 89 mg/dL (74-99); Potassium 4.8 mmol/L (3.5-5.1); Sodium 140 mmol/L (137-145); Total Bilirubin 0.6 mg/dL (0.2-1.3); Total Protein 7.8 g/dL (6.3-8.2)
[2018-10-23 18:10] VITALS: BP 130/93; PULSE 74
== END 2018-10-23 18:09 | disposition home or self-care (01) ==
LOC: EC 14:40
DX: G43.909 Migraine, unspecified, not intractable, without status migrainosus (principal); E78.5 Hyperlipidemia, unspecified; I10 Essential (primary) hypertension; G89.29 Other chronic pain; Z88.2 Allergy status to sulfonamides; Z91.018 Allergy to other foods; Z79.1 Long term (current) use of non-steroidal anti-inflammatories (NSAID); Z79.899 Other long term (current) drug therapy; Z98.890 Other specified postprocedural states
CPT/HCPCS: 36415; 80053; 85025; 99284; 96374; 96375 ×2; 96361; J1200; J2765; J1885

== ENCOUNTER 2018-10-25 15:41 | Emergency (ER) | payer OTHER ==
[2018-10-25] MEDS ORDERED: MORPHINE SULFATE 4 MG/ML SYRINGE IV STA (16:13)
[2018-10-25] MEDS ORDERED: SODIUM CHLORIDE 0.9% 1,000 ML IV STA (16:13)
[2018-10-25] MEDS ORDERED: methylPREDNISolone SOD SUCCI 250 MG in SODIUM CHLORIDE 0.9% 100 ML IVPB STA (16:15)
[2018-10-25] MEDS ORDERED: diphenhydrAMINE 50 MG/ML 1 ML VIAL IVP STA (16:15)
[2018-10-25 16:50] LABS: Basophils # (A) 0.1 k/uL (0-0.2); Basophils % (A) 1 %; Eosinophils # (A) 0.2 k/uL (0-0.7); Eosinophils % (A) 2 %; HCT 45.5 % (34.0-46.0); HGB 14.9 gm/dL (11.4-16.0); Lymphocytes # (A) 2.4 k/uL (1.0-4.8); Lymphocytes % (A) 25 %; MCH 27.8 pg (25.0-35.0); MCHC 32.7 g/dL (31.0-37.0); MCV 85.1 fL (80.0-100.0); Mean Platelet Volume 6.9; Monocytes # (A) 0.5 k/uL (0-1.0); Monocytes % (A) 5 %; Neutrophils # (A) 6.4 k/uL (1.3-7.7); Neutrophils % (A) 66 %; Platelet Count 316 k/uL (150-450); RBC 5.34 m/uL (3.80-5.40); RDW 12.9 % (11.5-15.5); WBC 9.7 k/uL (3.8-10.6)
[2018-10-25 17:05] LABS: Creatine Kinase 160 U/L (30-135)
[2018-10-25 17:08] LABS: INR 0.9 (<1.2); Prothrombin Time 9.7 sec (9.0-12.0)
[2018-10-25 17:09] LABS: ALT 114 U/L (9-52); AST 126 U/L (14-36); Albumin 4.5 g/dL (3.5-5.0); Alkaline Phosphatase 83 U/L (38-126); Anion Gap 13 mmol/L; Blood Urea Nitrogen 8 mg/dL (7-17); C Reactive Protein 20.6 mg/L (<10.0); Calcium 9.6 mg/dL (8.4-10.2); Carbon Dioxide 23 mmol/L (22-30); Chloride 105 mmol/L (98-107); Glucose 97 mg/dL (74-99); Magnesium 2.1 mg/dL (1.6-2.3); Phosphorus 3.7 mg/dL (2.5-4.5); Potassium 4.2 mmol/L (3.5-5.1); Sodium 141 mmol/L (137-145); Total Bilirubin 0.7 mg/dL (0.2-1.3); Total Protein 8.1 g/dL (6.3-8.2)
[2018-10-25 17:16] LABS: Partial Thromboplastin Time 17.8 sec (22.0-30.0)
[2018-10-25 17:17] LABS: Creatine Kinase MB 0.9 ng/mL (0.0-2.4); Troponin I <0.012 ng/mL (0.000-0.034)
--- NOTE | 2018-10-25 17:18 | CT ---
EXAMINATION TYPE: CT brain wo con DATE OF EXAM: 10/25/2018 COMPARISON: 01/11/2016 HISTORY: Migrane x1 week CT DLP: 1135 mGycm. Automated Exposure Control for Dose Reduction was Utilized. TECHNIQUE: CT scan of the head is performed without contrast. FINDINGS: Ventricles and sulci appear normal. There is no mass effect nor midline shift. There is n o sign of intracranial hemorrhage. The calvarium is intact. IMPRESSION: Normal head CT scan. No change.
--- NOTE | 2018-10-25 17:31 | CT ---
EXAMINATION TYPE: CT angio [facility] DATE OF EXAM: 10/25/2018 5:15 PM COMPARISON: None HISTORY: Migrane x1 week CT DLP: 680.2 mGycm Automated exposure control for dose reduction was used. TECHNIQUE: Performed with IV Contrast, patient injected with 100 mL of Isovue 370. There are 3-D post processed images.. FINDINGS: There is arterial flow in the anterior middle and posterior cerebral arteries. There is arterial flow in the vertebrobasilar artery system. There is normal contrast opacification of the venous sinuses. There is no mass effect. There is no evidence of arterial stenosis. There is no evidence of aneurysm or neovascularity. IMPRESSION: NORMAL CT ANGIOGRAM OF THE BRAIN.
--- NOTE | 2018-10-25 17:32 | ED ---
Headache HPI - General Chief Complaint: Headache Stated Complaint: migraine and fever Time Seen by Provider: 10/25/18 15:56 Source: RN notes reviewed, old records reviewed Mode of arrival: ambulatory Limitations: no limitations - History of Present Illness Initial Comments: This is a 33-year-old male female the ER with recurrent headache. Patient was seen 2 days ago for same headache. Patient had recent history of recent radiofrequency ablation in her neck for neck pain. No rash noted to the site, patient states she is had chills but no objective fevers. Patient states the headache is just been persistent for the past 3 days, no nausea no vomiting. Patient denies any other significant complaint. Patient's headache was resolved on her last discharged from the emergency room. MD Complaint: headache -: days(s) (5) Onset Description: gradual Location: frontal, neck Severity scale (1-10): 6 Quality: constant Consistency: intermittent Improves With: medication Worsens With: none Context: occurred at rest Associated Symptoms: other (Patient states she has chills,) Other Symptoms: other (Non-) Treatments Prior to Arrival: none - Related Data Home Medications Medication Instructions Recorded Confirmed ALPRAZolam [Xanax] 0.5 mg PO DAILY PRN 04/10/14 10/25/18 Atorvastatin [Lipitor] 80 mg PO HS 02/01/17 10/25/18 Ibuprofen [Motrin] 800 mg PO TID PRN 06/16/18 10/25/18 Allergies Allergy/AdvReac Type Severity Reaction Status Date / Time onion Allergy Rash/Hives Verified 10/25/18 16:02 sulfamethoxazole Allergy Rash/Hives Verified 10/25/18 16:02 [From Bactrim] trimethoprim [From Bactrim] Allergy Rash/Hives Verified 10/25/18 16:02 Review of Systems ROS Statement: Those systems with pertinent positive or pertinent negative responses have been documented in the HPI. ROS Other: All systems not noted in ROS Statement are negative. Past Medical History Past Medical History: Hyperlipidemia, Hypertension Additional Past Medical History / Comment(s): chronic back pain, migraine headaches History of Any Multi-Drug Resistant Organisms: None Reported Past Surgical History: Cholecystectomy, Orthopedic Surgery Additional Past Surgical History / Comment(s): elbow, novasure procedure, carpal tunnel repair bilateral hands Past Anesthesia/Blood Transfusion Reactions: No Reported Reaction Past Psychological History: Anxiety Smoking Status: Never smoker Past Alcohol Use History: None Reported Past Drug Use History: None Reported - Past Family History Mother Family Medical History: No Reported History Father Family Medical History: No Reported History General Exam - General Exam Comments Initial Comments: NIH of 0, no neurological deficit Limitations: no limitations General appearance: alert, in no apparent distress Head exam: Present: atraumatic, normocephalic, normal inspection Eye exam: Present: normal appearance, PERRL, EOMI. Absent: scleral icterus, conjunctival injection, periorbital swelling ENT exam: Present: normal exam, mucous membranes moist Neck exam: Present: normal inspection. Absent: tenderness, meningismus, lymphadenopathy Respiratory exam: Present: normal lung sounds bilaterally. Absent: respiratory distress, wheezes, rales, rhonchi, stridor Cardiovascular Exam: Present: regular rate, normal rhythm, normal heart sounds. Absent: systolic murmur, diastolic murmur, rubs, gallop, clicks GI/Abdominal exam: Present: soft, normal bowel sounds. Absent: distended, tenderness, guarding, rebound, rigid Extremities exam: Present: normal inspection, full ROM, normal capillary refill. Absent: tenderness, pedal edema, joint swelling, calf tenderness Back exam: Present: normal inspection Neurological exam: Present: alert, oriented X3, CN II-XII intact Psychiatric exam: Present: normal affect, normal mood Skin exam: Present: warm, dry, intact, normal color. Absent: rash Course Vital Signs 10/25/18 10/25/18 15:48 18:14 Temperature 98.0 F 99.1 F Pulse Rate 87 Respiratory 20 Rate Blood Pressure 139/94 O2 Sat by Pulse 98 Oximetry - Reevaluation(s) Reevaluation #1: 10/25/18 18:23 Medical record and prior ER visit are reviewed Reevaluation #2: 10/25/18 18:23 Patient has rectal temp which is negative Reevaluation #3: 10/25/18 18:23 Headache has resolved Medical Decision Making - Medical Decision Making 33 female the ER with persistent headache, headache is now improved here in the emergency room, patient can be discharged home - Lab Data Result diagrams: 10/25/18 16:32 10/25/18 16:32 Lab Results 10/25/18 10/25/18 10/25/18 Range/Units 16:32 16:32 16:32 WBC 9.7 (3.8-10.6) k/uL RBC 5.34 (3.80-5.40) m/uL Hgb 14.9 (11.4-16.0) gm/dL Hct 45.5 (34.0-46.0) % MCV 85.1 (80.0-100.0) fL MCH 27.8 (25.0-35.0) pg MCHC 32.7 (31.0-37.0) g/dL RDW 12.9 (11.5-15.5) % Plt Count 316 (150-450) k/uL Neutrophils % 66 % Lymphocytes % 25 % Monocytes % 5 % Eosinophils % 2 % Basophils % 1 % Neutrophils # 6.4 (1.3-7.7) k/uL Lymphocytes # 2.4 (1.0-4.8) k/uL Monocytes # 0.5 (0-1.0) k/uL Eosinophils # 0.2 (0-0.7) k/uL Basophils # 0.1 (0-0.2) k/uL PT (9.0-12.0) sec INR (<1.2) APTT (22.0-30.0) sec Sodium 141 (137-145) mmol/L Potassium 4.2 (3.5-5.1) mmol/L Chloride 105 (98-107) mmol/L Carbon Dioxide 23 (22-30) mmol/L Anion Gap 13 mmol/L BUN 8 (7-17) mg/dL Creatinine 0.44 L (0.52-1.04) mg/dL Est GFR (CKD-EPI)AfAm >90 (>60 ml/min/1.73 sqM) Est GFR (CKD-EPI)NonAf >90 (>60 ml/min/1.73 sqM) Glucose 97 (74-99) mg/dL Calcium 9.6 (8.4-10.2) mg/dL Phosphorus 3.7 (2.5-4.5) mg/dL Magnesium 2.1 (1.6-2.3) mg/dL Total Bilirubin 0.7 (0.2-1.3) mg/dL AST 126 H (14-36) U/L ALT 114 H (9-52) U/L Alkaline Phosphatase 83 (38-126) U/L Total Creatine Kinase 160 H (30-135) U/L CK-MB (CK-2) 0.9 (0.0-2.4) ng/mL CK-MB (CK-2) Rel Index 0.6 Troponin I <0.012 (0.000-0.034) ng/mL C-Reactive Protein 20.6 H (<10.0) mg/L Total Protein 8.1 (6.3-8.2) g/dL Albumin 4.5 (3.5-5.0) g/dL Urine Color Urine Appearance (Clear) Urine pH (5.0-8.0) Ur Specific [place] (1.001-1.035) Urine Protein (Negative) Urine Glucose (UA) (Negative) Urine Ketones (Negative) Urine Blood (Negative) Urine Nitrite (Negative) Urine Bilirubin (Negative) Urine Urobilinogen (<2.0) mg/dL Ur Leukocyte Esterase (Negative) Urine RBC (0-5) /hpf Urine WBC (0-5) /hpf Ur Squamous Epith Cells (0-4) /hpf Urine Mucus (None) /hpf 10/25/18 10/25/18 Range/Units 16:32 17:55 WBC (3.8-10.6) k/uL RBC (3.80-5.40) m/uL Hgb (11.4-16.0) gm/dL Hct (34.0-46.0) % MCV (80.0-100.0) fL MCH (25.0-35.0) pg MCHC (31.0-37.0) g/dL RDW (11.5-15.5) % Plt Count (150-450) k/uL Neutrophils % % Lymphocytes % % Monocytes % % Eosinophils % % Basophils % % Neutrophils # (1.3-7.7) k/uL Lymphocytes # (1.0-4.8) k/uL Monocytes # (0-1.0) k/uL Eosinophils # (0-0.7) k/uL Basophils # (0-0.2) k/uL PT 9.7 (9.0-12.0) sec INR 0.9 (<1.2) APTT 17.8 L (22.0-30.0) sec Sodium (137-145) mmol/L Potassium (3.5-5.1) mmol/L Chloride (98-107) mmol/L Carbon Dioxide (22-30) mmol/L Anion Gap mmol/L BUN (7-17) mg/dL Creatinine (0.52-1.04) mg/dL Est GFR (CKD-EPI)AfAm (>60 ml/min/1.73 sqM) Est GFR (CKD-EPI)NonAf (>60 ml/min/1.73 sqM) Glucose (74-99) mg/dL Calcium (8.4-10.2) mg/dL Phosphorus (2.5-4.5) mg/dL Magnesium (1.6-2.3) mg/dL Total Bilirubin (0.2-1.3) mg/dL AST (14-36) U/L ALT (9-52) U/L Alkaline Phosphatase (38-126) U/L Total Creatine Kinase (30-135) U/L CK-MB (CK-2) (0.0-2.4) ng/mL CK-MB (CK-2) Rel Index Troponin I (0.000-0.034) ng/mL C-Reactive Protein (<10.0) mg/L Total Protein (6.3-8.2) g/dL Albumin (3.5-5.0) g/dL Urine Color Yellow Urine Appearance Cloudy H (Clear) Urine pH 7.0 (5.0-8.0) Ur Specific [place] 1.026 (1.001-1.035) Urine Protein Negative (Negative) Urine Glucose (UA) Negative (Negative) Urine Ketones Negative (Negative) Urine Blood Negative (Negative) Urine Nitrite Negative (Negative) Urine Bilirubin Negative (Negative) Urine Urobilinogen <2.0 (<2.0) mg/dL Ur Leukocyte Esterase Moderate H (Negative) Urine RBC 4 (0-5) /hpf Urine WBC 7 H (0-5) /hpf Ur Squamous Epith Cells 6 H (0-4) /hpf Urine Mucus Rare H (None) /hpf - EKG Data -: EKG Interpreted by Me (EKG shows sinus rhythm rate of 69, IA 150, QRS 80, QTC 465) - Radiology Data Radiology results: report reviewed (CT brain CTA head negative for acute disease ), image reviewed Disposition Clinical Impression: Migraine, Headache Disposition: HOME SELF-CARE Condition: Good Instructions: Acute Headache (ED) Is patient prescribed a controlled substance at d/c from ED?: No Referrals: Hemant David MD [Primary Care Provider] - 1-2 days
[2018-10-25 18:04] LABS: Appearance,Urine Cloudy (Clear); Bilirubin,Urine Negative (Negative); Blood,Urine Negative (Negative); Color,Urine Yellow; Glucose,Urine (UA) Negative (Negative); Ketones,Urine Negative (Negative); Leukocyte Esterase,Urine Moderate (Negative); Mucus,Urine Rare /hpf; Nitrite,Urine Negative (Negative); Protein,Urine Negative (Negative); RBC,Urine 4 /hpf (0-5); Specific Gravity,Urine 1.026 (1.001-1.035); Squamous Epithelial Cell,Urine 6 /hpf (0-4); Urobilinogen,Urine <2.0 mg/dL (<2.0); WBC,Urine 7 /hpf (0-5)
[2018-10-25 18:39] VITALS: BP 138/70; PULSE 78; RESP 16; TEMP 97.8
== END 2018-10-25 18:38 | disposition home or self-care (01) ==
LOC: EC 15:41
DX: G43.909 Migraine, unspecified, not intractable, without status migrainosus (principal); E78.5 Hyperlipidemia, unspecified; Z79.899 Other long term (current) drug therapy; Z88.2 Allergy status to sulfonamides; Z91.018 Allergy to other foods
CPT/HCPCS: 99284 ×2; 96365 ×2; 96375 ×3; 36415; 80053; 82550; 82553; 83735; 84100; 84484; 85025; 85610; 85730; 86140; 81001; 87086; 70496; 70450; J2270; J1200; J2930; Q9967

== ENCOUNTER 2018-10-31 06:58 | Day surgery (SDC) | payer OTHER ==
[~2018-10-31 06:58] MED LIST changes: -SODIUM CHLORIDE 0.9% 500 ML 500 ML IV ONE; +SODIUM CHLORIDE 0.9% 500 ML 500 ML IV SCH
[2018-10-31 07:29] VITALS: RESP 16; TEMP 98.5
[2018-10-31] MEDS ORDERED: LACTATED RINGERS 1,000 ML IV ONE (07:40)
--- NOTE | 2018-10-31 08:49 | P.PCN ---
Date of Procedure: 10/31/18 Pathology: none sent Condition: stable Disposition: PACU Description of Procedure: PREOPERATIVE DIAGNOSIS: Lumbar spondylosis without myelopathy, morbid obesity POSTOPERATIVE DIAGNOSIS: Lumbar spondylosis without myelopathy,morbid obesity PROCEDURES : Radiofrequency thermocoagulation L3-L4, L4-L5, and L5-S1 medial branch, with fluoroscopic guidance ANESTHESIA: IV moderate conscious sedation with versed and fentanyl and local infiltration with lidocaine 1% 5 ml EBL: Minimal PROCEDURE INDICATION: The patient with low back pain secondary to lumbar facet arthropathy who had more than 50% relief of her pain with previous diagnostic lumbar medial branch block with bupivacaine. PROCEDURE DESCRIPTION / TECHNIQUE: The patient was seen and identified in the preoperative area. Risks, benefits, complications, including but not limited to risk of infection ,bleeding , allergic reactions to the medications and no complete pain relief , and alternatives were discussed with the patient, the patient agreed to proceed with the procedure and signed the consent. IV was started. Vital signs remained stable throughout the procedure. Patient was taken to the OR and time out was completed. The patient was placed in the prone position on the procedure table. The lumber area was prepped and draped in the usual sterile fashion. . Vital signs were closely monitored during the procedure .IV sedation was used during the procedure to decrease patients anxiety. The target points were identified as follows: For the L5-S1 level which corresponds to the dorsal ramus of L5 the target point was at the superior medial aspect of the sacral ala on the ---left- side of the spine on the AP view of fluoroscopy and for the L2, L3, and L4 medial branches the target points were at the connection between the transverse process and the superior articular process of L3, L4, and L5 vertebra respectively on the --left-- oblique view of fluoroscopy. skin was marked, and localized with 1% lidocaineat these points. Subsequently, an 18 [id number] radiofrequency needles with a 10 -mm curved active tips were advanced guided by fluoroscopy to each of the target points mentioned above in a superior medial direction to get the active tips as parallel as possible to the medial branches tracks. AP, oblique, and lateral views of fluoroscopy were used to verify needle tips position. Each level then underwent motor testing at 2.5 Hz and 0 to 3 volt with local stimulation, but no radicular symptoms down the legs. Thereafter radiofrequency thermocoagulation at 80 degrees celsius for 90 seconds after injecting 1 ml of PF Marcaine 0.5%(3 mls) with 40 mg of DepoMedrol. At the end of the procedure, the skin was cleansed and bandages were applied. COMPLICATIONS: No acute complications. DISPOSITION / PLANS: The patient was placed in a supine position and transferred to the recovery area in a stable condition for observation and was discharged from the recovery room after meeting discharge criteria. Home discharge instructions given to the patient by the staff. The patient was reexamined prior to discharge. The patient will schedule a follow up in the clinic in 2-4 weeks.
[2018-10-31] MEDS ORDERED: IV FLUID CONTINUATION 600 ML IV ONE (08:54)
[2018-10-31 09:19] VITALS: BP 119/59; PULSE 70
--- NOTE | 2018-10-31 09:20 | FL ---
EXAMINATION TYPE: FL guided pain mgmt statistic DATE OF EXAM: 10/31/2018 CLINICAL HISTORY: Low back pain. TECHNIQUE: Fluoroscopy. COMPARISON: None. FINDINGS: Fluoroscopic guidance was provided during pain relief procedure performed by Dr. Sanches . A total of 21 seconds of fluoroscopic time was utilized during the procedure and two spot images ar e acquired. Images acquired shows needle localization at several levels in the lumbar spine. IMPRESSION: As Above.
== END 2018-10-31 09:25 | disposition home or self-care (01) ==
LOC: ORPAIN 06:58
PROVIDERS: ATTEND Anesthesiology
DX: M47.816 Spondylosis without myelopathy or radiculopathy, lumbar region (principal); E66.9 Obesity, unspecified; Z88.2 Allergy status to sulfonamides; Z68.37 Body mass index [BMI] 37.0-37.9, adult
CPT/HCPCS: 81025; 64635; 64636 ×2; J2250; J1030; J3010; 99152

== ENCOUNTER 2018-12-01 12:12 | Emergency (ER) | payer OTHER ==
[2018-12-01 12:25] VITALS: TEMP 97.9
[2018-12-01] MEDS ORDERED: ACETAMINOPHEN TAB 500 MG TAB PO STA (12:52)
[2018-12-01] MEDS ORDERED: BENZONATATE 100 MG CAP PO STA (12:52)
--- NOTE | 2018-12-01 12:57 | ED ---
General Adult HPI - General Chief complaint: Upper Respiratory Infection Stated complaint: LOST VOICE, COUGHING UP BLOOD Source: patient, RN notes reviewed Mode of arrival: ambulatory Limitations: no limitations - History of Present Illness Initial comments: Patient is a 33-year-old female who presents to the emergency department with complaint of sore throat and cough productive of blood-tinged mucus for one week. She reports losing her voice last night. She also reports fevers (high 101.3F a few days ago) and muscle aches. Denies history of pulmonary diseases or smoking. Denies possibility of . Patient denies any recent chills , chest pain, abdominal pain, nausea or vomiting, numbness or tingling, constipation or diarrhea, headaches or visual changes, or any other complaints. - Related Data Home Medications Medication Instructions Recorded Confirmed ALPRAZolam [Xanax] 0.5 mg PO DAILY PRN 04/10/14 12/01/18 Atorvastatin [Lipitor] 80 mg PO HS 02/01/17 12/01/18 Ibuprofen [Motrin] 800 mg PO TID PRN 06/16/18 12/01/18 Previous Rx's Medication Instructions Recorded Benzonatate [Tessalon Perles] 100 mg PO TID PRN #20 capsule 12/01/18 Allergies Allergy/AdvReac Type Severity Reaction Status Date / Time onion Allergy Rash/Hives Verified 12/01/18 12:49 sulfamethoxazole Allergy Rash/Hives Verified 12/01/18 12:49 [From Bactrim] trimethoprim [From Bactrim] Allergy Rash/Hives Verified 12/01/18 12:49 Review of Systems ROS Statement: Those systems with pertinent positive or pertinent negative responses have been documented in the HPI. ROS Other: All systems not noted in ROS Statement are negative. Past Medical History Past Medical History: Hyperlipidemia, Hypertension Additional Past Medical History / Comment(s): chronic back pain, migraine headaches History of Any Multi-Drug Resistant Organisms: None Reported Past Surgical History: Cholecystectomy, Orthopedic Surgery Additional Past Surgical History / Comment(s): elbow, novasure procedure, carpal tunnel repair bilateral hands Past Anesthesia/Blood Transfusion Reactions: No Reported Reaction Past Psychological History: Anxiety Smoking Status: Never smoker Past Alcohol Use History: None Reported Past Drug Use History: None Reported - Past Family History Mother Family Medical History: No Reported History Father Family Medical History: No Reported History General Exam Limitations: no limitations General appearance: alert, in no apparent distress Head exam: Present: atraumatic, normocephalic Eye exam: Present: normal appearance, PERRL ENT exam: Present: normal oropharynx, other (Left TM normal. Right TM unable to visualize due to cerumen.) Neck exam: Present: normal inspection. Absent: lymphadenopathy Respiratory exam: Present: normal lung sounds bilaterally. Absent: wheezes, rales, rhonchi Cardiovascular Exam: Present: regular rate, normal rhythm Extremities exam: Present: normal capillary refill Neurological exam: Present: alert, oriented X3 Psychiatric exam: Present: normal affect, normal mood Skin exam: Present: warm, dry Course Vital Signs 12/01/18 12/01/18 12:22 13:18 Temperature 97.9 F Pulse Rate 88 73 Respiratory 20 18 Rate Blood Pressure 154/114 135/91 O2 Sat by Pulse 97 96 Oximetry Medical Decision Making - Medical Decision Making Ordered Tylenol and Tessalon Perles. Influenza A and B negative. Rapid strep negative. Chest x-ray reveals no acute cardiopulmonary process. Will prescribe Tessalon Perles. Case discussed in detail with attending physician Dr. Love. - Lab Data Lab Results 12/01/18 12/01/18 Range/Units 13:17 13:17 Influenza Type A RNA Not Detected (Not Detectd) Influenza Type B (PCR) Not Detected (Not Detectd) Group A Strep Rapid Negative (Negative) Disposition Clinical Impression: Upper respiratory infection Disposition: HOME SELF-CARE Condition: Good Instructions: Upper Respiratory Infection (ED) Additional Instructions: Follow-up with your PCP in 1 to 2 days. Use [id number] Tylenol and Motrin as needed for pain and fever. Return to the emergency department if your symptoms worsen or any other concerns. Prescriptions: Benzonatate [Tessalon Perles] 100 mg PO TID PRN #20 capsule PRN Reason: Cough Is patient prescribed a controlled substance at d/c from ED?: No Referrals: Hemant David MD [Primary Care Provider] - 1-2 days Time of Disposition: 14:30
--- NOTE | 2018-12-01 13:16 | XR ---
EXAMINATION TYPE: XR chest 2V DATE OF EXAM: 12/01/2018 COMPARISON: 07/26/2018 HISTORY: Hematemesis TECHNIQUE: Frontal and lateral views of the chest are obtained. FINDINGS: There is no focal air space opacity, pleural effusion, or pneumothorax seen. The cardiac silhouette size is within normal limits. The osseous structures are intact. IMPRESSION: No acute cardiopulmonary process.
[2018-12-01 13:19] VITALS: BP 135/91; PULSE 73; RESP 18
== END 2018-12-01 14:40 | disposition home or self-care (01) ==
LOC: EC 12:12
DX: J06.9 Acute upper respiratory infection, unspecified (principal); E78.5 Hyperlipidemia, unspecified; F41.9 Anxiety disorder, unspecified; Z79.899 Other long term (current) drug therapy; Z88.2 Allergy status to sulfonamides; Z91.018 Allergy to other foods
CPT/HCPCS: 71046; 87081; 87430; 87502; 99283

== ENCOUNTER 2018-12-05 15:05 | Emergency (ER) | payer OTHER ==
[2018-12-05 15:09] VITALS: RESP 18; TEMP 98
--- NOTE | 2018-12-05 16:47 | ED ---
General Adult HPI - General Chief complaint: Upper Respiratory Infection Stated complaint: throat hurts/cough-revisit Time Seen by Provider: 12/05/18 16:05 Source: patient, RN notes reviewed, old records reviewed Mode of arrival: ambulatory Limitations: no limitations - History of Present Illness Initial comments: 33 year old female, generally good health presents with persistent cough for 3 weeks, loosing her voice, and fatigue. She complains of sore throat, occasional bloody nose, and productive cough. She was seen in ED 5 days ago, diagnosed with viral syndrome, and placed on tessalon perles. She sees PCP in 10 days. She reports she is getting worse. Patient had negative flu, CXR and rapid strep at that time. - Related Data Home Medications Medication Instructions Recorded Confirmed Atorvastatin [Lipitor] 80 mg PO HS 02/01/17 12/05/18 Ibuprofen [Motrin] 800 mg PO TID PRN 06/16/18 12/05/18 ALPRAZolam [Xanax] 0.25 mg PO TID PRN 12/05/18 12/05/18 Previous Rx's Medication Instructions Recorded Azithromycin [Zithromax Z-pack] 250 mg PO DIRECTED #6 tab 12/05/18 methylPREDNISolone Dose Pack 4 mg PO DIRECTED #21 package 12/05/18 [Medrol Dose Pack] Allergies Allergy/AdvReac Type Severity Reaction Status Date / Time onion Allergy Rash/Hives Verified 12/05/18 16:22 sulfamethoxazole Allergy Rash/Hives Verified 12/05/18 16:22 [From Bactrim] trimethoprim [From Bactrim] Allergy Rash/Hives Verified 12/05/18 16:22 Review of Systems ROS Statement: Those systems with pertinent positive or pertinent negative responses have been documented in the HPI. ROS Other: All systems not noted in ROS Statement are negative. Past Medical History Past Medical History: Hyperlipidemia, Hypertension Additional Past Medical History / Comment(s): chronic back pain, migraine headaches History of Any Multi-Drug Resistant Organisms: None Reported Past Surgical History: Cholecystectomy, Orthopedic Surgery Additional Past Surgical History / Comment(s): elbow, novasure procedure, carpal tunnel repair bilateral hands Past Anesthesia/Blood Transfusion Reactions: No Reported Reaction Past Psychological History: Anxiety Smoking Status: Never smoker Past Alcohol Use History: None Reported Past Drug Use History: None Reported - Past Family History Mother Family Medical History: No Reported History Father Family Medical History: No Reported History General Exam - General Exam Comments Initial Comments: This is a 33 year old female. No distress. Limitations: no limitations General appearance: alert, in no apparent distress Head exam: Present: atraumatic, normocephalic, normal inspection Eye exam: Present: normal appearance, PERRL, EOMI. Absent: scleral icterus, conjunctival injection, periorbital swelling ENT exam: Present: normal exam, mucous membranes moist, other (erythematous boggy turbinates. ). Absent: normal oropharynx (Erythematous orophaynx. r) Neck exam: Present: normal inspection, other (hoarse voice). Absent: tenderness , meningismus, lymphadenopathy Respiratory exam: Absent: normal lung sounds bilaterally (Productive cough), respiratory distress, wheezes, rales, rhonchi, stridor Cardiovascular Exam: Present: regular rate, normal rhythm, normal heart sounds. Absent: systolic murmur, diastolic murmur, rubs, gallop, clicks GI/Abdominal exam: Present: soft, normal bowel sounds. Absent: distended, tenderness, guarding, rebound, rigid Extremities exam: Present: normal inspection, full ROM, normal capillary refill. Absent: tenderness, pedal edema, joint swelling, calf tenderness Back exam: Present: normal inspection Neurological exam: Present: alert, oriented X3, CN II-XII intact Psychiatric exam: Present: normal affect, normal mood Skin exam: Present: warm, dry, intact, normal color. Absent: rash Course Vital Signs 12/05/18 12/05/18 15:07 17:05 Temperature 98.0 F Pulse Rate 80 76 Respiratory 18 18 Rate Blood Pressure 154/103 132/97 O2 Sat by Pulse 98 96 Oximetry Medical Decision Making - Medical Decision Making 33 year old female with productive cough for 3 weeks. 5 days ago she had negative flu, CXR, and rapid strep. She is reportedly getting worse. Patient has significant cough. Lungs have some rhonchi cleared with coughing. Patient has hoarse voice and erythematous oropharynx. Offered CXR, however patient can be treated for clinical bronchitis and early pneumonia with persistent fevers as well. Will DC with prednisone and azithromycin. Discussed PCP follow up, return parameters discussed. Disposition Clinical Impression: Laryngitis, Bronchitis Disposition: HOME SELF-CARE Condition: Good Instructions: Upper Respiratory Infection (ED) Additional Instructions: Follow-up with primary care provider as directed. Continue use over-the- counter medication as we have discussed. So I rinses and gargling. Patient should return to emergency department if any alarming signs or symptoms occur. Prescriptions: Azithromycin [Zithromax Z-pack] 250 mg PO DIRECTED #6 tab methylPREDNISolone Dose Pack [Medrol Dose Pack] 4 mg PO DIRECTED #21 package Is patient prescribed a controlled substance at d/c from ED?: No Referrals: Hemant David MD [Primary Care Provider] - 1-2 days Time of Disposition: 16:45
[2018-12-05 17:06] VITALS: BP 132/97; PULSE 76
== END 2018-12-05 17:05 | disposition home or self-care (01) ==
LOC: EC 15:05
DX: J40 Bronchitis, not specified as acute or chronic (principal); J04.0 Acute laryngitis; J18.9 Pneumonia, unspecified organism; E78.5 Hyperlipidemia, unspecified; I10 Essential (primary) hypertension; Z88.2 Allergy status to sulfonamides; Z91.018 Allergy to other foods; Z79.899 Other long term (current) drug therapy
CPT/HCPCS: 99283

== ENCOUNTER → 2019-01-17 | Outpatient (CLI) | payer OTHER ==
[2019-01-17 14:09] VITALS: BP 141/89; PULSE 71; RESP 16; TEMP 97.9
--- NOTE | 2019-01-18 09:21 | P.PAINPG ---
Subjective Progress Note Date: 01/17/19 This is a follow-up visit for this 34 years old female with a chronic history of severe low back pain, she is diagnosed with lumbar spondylosis with facet arthropathy, status post radiofrequency ablation of the medial branch lumbar area L3/L4 5/L5-S1 , her pain improved significantly on the right side, but she continued to have severe localized pain on the left side, low back area , and she is able to do activity of daily livings without any difficulty, she is any fever or night sweats which she denies any motor or sensory deficit, she uses Motrin 800 mg when necessary for pain, he denies any side effect of the medication Physical Examinations : -Constitutiona : Cooperative , not in acute distress . -HEENT : nech ; supple , no Lymphadenopathy , normal thyroid size . eyes : no ptosis , no icterus, no photophobia - musculoskeltal : lumbar spine moter stegnth lower extremities ,thigh and legs 5/5 Right side , 5/5 Left side Severe localized tenderness over the iliolumbar ligament on the left side, there is no erythema, no swelling, no discharge Assessment and Plan Plan: Assessment and plan= chronic low back pain secondary to lumbar spondylosis with lumbar facet arthropathy without myelopathy She had good results after the radiofrequency ablation of the medial branch, currently patient had symptoms of left iliolumbar ligament Neuralgia , patient could benefit from left iliolumbar ligament steroid injections under fluoroscopy guidance Objective - Vital Signs Vital signs: Vital Signs Temp 97.9 F 01/17/19 14:03 Pulse 71 01/17/19 14:03 Resp 16 01/17/19 14:03 BP 141/89 01/17/19 14:03 Pulse Ox 98 01/17/19 14:03 Intake & Output 01/17/19 01/18/19 01/18/19 18:59 06:59 18:59 Weight 115 kg PQRS Measure Charge Sheet Measure #130: Documentation of Current Meds in Medical Chart: Patient's medications documented in chart Measure #226: Tobacco Use: Screen & Cessation Intervention: Pt not a tobacco user Measure #111: Pneumonia Vaccination: Pneumococcal vaccine administered or previously received Measure #47: Advance Care Plan: Advance care planning discussed & documented, pt chose/unable to give Measure #412: Opioid Treatment Agreement: No documentation of signed opioid treatment agreement Measure #408: Opioid Therapy Follow-up Evaluation: Patient had NO f/u eval minimum every 3 months during opioid therapy Measure #317: Preventitive Care & Scrn High Bld Press & F/U: Normal blood pressure, f/u not required Measure #128: Body Mass Index (BMI) Screening & Follow-up: BMI documented ABOVE normal parameters - f/u documented Measure #131: Pain Assessment & Follow-up: Pain positive & plan documented, Follow-up scheduled Measure #431: Unhealthy Alcohol Use Preventative Care & Scrn: Patient not identified as an unhealthy alcohol user PQRS Narrative: Smoking Status Never smoker Do You Want the Pneumonia Vaccine Up to Date Vaccine AT THIS TIME? Blood Pressure 141/89 Pain Intensity [Left Lower 7 Posterior Back] Scale Used Numeric (1 - 10) Hx Alcohol Use (MH) No Home Medications: Ambulatory Orders Ibuprofen [Motrin] 800 mg PO TID PRN 06/16/18 ALPRAZolam [Xanax] 0.25 mg PO TID PRN 12/05/18 Controlled Substance Measures - Controlled Substance Measures Is patient prescribed a controlled substance at discharge?: No
== END | disposition home or self-care (01) ==
LOC: PNWHC3 13:00
PROVIDERS: ATTEND Specialist
DX: G89.29 Other chronic pain (principal); M54.5 Low back pain; M47.816 Spondylosis without myelopathy or radiculopathy, lumbar region; M46.86 Other specified inflammatory spondylopathies, lumbar region; M46.06 Spinal enthesopathy, lumbar region; Z79.1 Long term (current) use of non-steroidal anti-inflammatories (NSAID); Z79.899 Other long term (current) drug therapy
CPT/HCPCS: 99211

== ENCOUNTER 2019-01-29 06:07 | Day surgery (SDC) | payer OTHER ==
[2019-01-25 10:31] VITALS: BMI 40.8
[2019-01-29 06:34] VITALS: RESP 16; TEMP 98.3
[2019-01-29] MEDS ORDERED: LIDOCAINE 1% 20 ML VIAL (10MG/ML) FOR IV START INTRADERMA ONE (06:39)
[2019-01-29] MEDS ORDERED: LACTATED RINGERS 1,000 ML IV ONE (06:39)
--- NOTE | 2019-01-29 07:22 | P.PCN ---
Date of Procedure: 01/29/19 Surgeon: Annette Sanches Description of Procedure: Preoperative Diagnosis: Lumbar spondylosis without myelopathy Lumbar myofascial pain Iliolumbar ligament syndrome Postoperative Diagnosis: Same as above Procedure(s) Performed: Iliolumbar ligament steroid injection on the left side under fluoroscopic guidance Anesthesia: MAC (Local with lidocaine 1% and IV moderate conscious sedation with 1 mg of Versed and 50 g of fentanyl) Surgeon: Annette Sanches Pathology: none sent Condition: stable Disposition: PACU Description of Procedure: The patient was seen in preoperative holding area consent was obtained then he was brought into the procedure room and placed in prone position. Skin was prepped with ChloraPrep and draped in a sterile manner. Lidocaine 1% was used to numb the skin up at the target point that was chosen as follows: The tip of the left L5 transverse process was identified and the target point was just lateral to this point and lies between the tip of the left L5 transverse process and the left iliac crest. I used 22-gauge 3-1/2 inch Quincke spinal needle for this procedure and by using the AP and lateral views of fluoroscopy I then injected 40 mg of Depo-Medrol and 4 MLS of ropivacaine 0.5% at the target point that was mentioned above. Patient tolerated procedure well.
[2019-01-29] MEDS ORDERED: IV FLUID CONTINUATION 1,000 ML IV ONE (07:30)
--- NOTE | 2019-01-29 07:34 | FL ---
EXAMINATION TYPE: FL guided pain mgmt statistic DATE OF EXAM: 01/29/2019 CLINICAL HISTORY: Low back pain. TECHNIQUE: Fluoroscopy. COMPARISON: None. FINDINGS: Fluoroscopic guidance was provided during pain relief procedure performed by Dr. Sanches . A total of 5 seconds of fluoroscopic time was utilized during the procedure and single spot fluoros copic intraoperative image is are acquired. Single image acquired shows needle localization at the p osterior L5-S1 level. IMPRESSION: As Above.
[2019-01-29 07:45] VITALS: BP 106/70; PULSE 66
== END 2019-01-29 08:05 | disposition home or self-care (01) ==
LOC: ORPAIN 06:07
PROVIDERS: ATTEND Anesthesiology
DX: G89.29 Other chronic pain (principal); M47.816 Spondylosis without myelopathy or radiculopathy, lumbar region; M24.28 Disorder of ligament, vertebrae; M79.18 Myalgia, other site; Z79.899 Other long term (current) drug therapy
CPT/HCPCS: 81025; 20550; J2250; J1030; J3010; 20552

== ENCOUNTER → 2019-02-27 | Day surgery (SDC) | payer OTHER ==
[~2019-02-27] MED LIST changes: +IV FLUID CONTINUATION 1,000 ML IV ONE; +LACTATED RINGERS 1,000 ML IV ONE; +LACTATED RINGERS 1,000 ML IV SCH; -SODIUM CHLORIDE 0.9% 500 ML 500 ML IV SCH
[2019-02-27 07:51] VITALS: RESP 16; TEMP 97.5
--- NOTE | 2019-02-27 08:31 | P.PCN ---
Date of Procedure: 02/27/19 Procedure(s) Performed: Procedure= Left sacral iliac joints steroid injection under fluoroscopy guidance Preoperative diagnosis= 1- Left sacroiliitis 2-lumbar spondylosis with facet arthropathy Postoperative diagnosis= same as preoperative diagnosis. Complication = none . Condition= stable Anesthesia= moderate sedation with intravenous Versed 1 mg , and fentanyl 50 micrograms and local infiltration with lidocaine 1% 2 mL Indication for the procedure= patient complaining of low back pain , examination was positive for severe tenderness over the sacroiliac joints bilaterally and patient diagnosed with sacroiliitis, for this reason he/ she was good candidate for sacroiliac joint steroid injection. Description of the procedure= procedure risk and benefits discussed with the patient, including but not limited, risk of infection and bleeding, and ALLERGIC reaction to the medication and not complete pain relief and patient agreed with the preceding patient taken to the operating room, placed in prone position or standard monitors applied to the patient then after induction of anesthesia back prepped with chlorhexidine 3 times , Then under strict sterile technique, I did the left sacroiliac joint the which was identified under fluoroscopy guidance been local infiltration of the skin and subcu interstitial with lidocaine 1% then 22-gauge Quincke Needle advanced slowly under fluoroscopy and placed in the left sacroiliac joint needle placement confirmed with AP and oblique and lateral view and after appropriate needle placement confirmed and after negative aspiration, or heme , then Ropivacaine 0.5% 3 mL, and 40 mg of depo-medrol mixed together and injected in the left sacroiliac joint after negative aspiration patient tolerated the procedure well without any complications , patient will follow up in the pain clinic in a few weeks
[2019-02-27 08:35] VITALS: PULSE 70
--- NOTE | 2019-02-27 08:39 | FL ---
Fluoroscopy History: Left SI Joint Steroid Injection Left SI joint steriod injection, 3 seconds fluoro time.
[2019-02-27 08:51] VITALS: BP 113/77
== END ==
LOC: ORPAIN 06:54
PROVIDERS: ATTEND Specialist
DX: Z88.2 Allergy status to sulfonamides (principal); Z91.018 Allergy to other foods
CPT/HCPCS: J2250; J1030; J3010; G0260; 27096; 99152

== ENCOUNTER 2019-03-13 07:02 | Day surgery (SDC) | payer OTHER ==
[2019-03-08 12:38] VITALS: BMI 41.6
[~2019-03-13 07:02] MED LIST changes: -IV FLUID CONTINUATION 1,000 ML IV ONE; -LACTATED RINGERS 1,000 ML IV ONE
[2019-03-13 07:32] VITALS: RESP 18; TEMP 98
[2019-03-13] MEDS ORDERED: LACTATED RINGERS 1,000 ML IV ONE (07:39)
[2019-03-13] MEDS ORDERED: LIDOCAINE 1% 20 ML VIAL (10MG/ML) FOR IV START INTRADERMA ONE (07:40)
--- NOTE | 2019-03-13 08:41 | P.PCN ---
Date of Procedure: 03/13/19 Procedure(s) Performed: Procedure= Left sacral iliac joints steroid injection under fluoroscopy guidance Preoperative diagnosis= 1- Left sacroiliitis 2-lumbar spondylosis with facet arthropathy Postoperative diagnosis= same as preoperative diagnosis. Complication = none . Condition= stable Anesthesia= moderate sedation with intravenous Versed 1 mg , and fentanyl 50 micrograms and local infiltration with lidocaine 1% 2 mL Indication for the procedure= patient complaining of low back pain , examination was positive for severe tenderness over the sacroiliac joints bilaterally and patient diagnosed with sacroiliitis, for this reason she was good candidate for sacroiliac joint steroid injection. Description of the procedure= procedure risk and benefits discussed with the patient, including but not limited, risk of infection and bleeding, and ALLERGIC reaction to the medication and not complete pain relief and patient agreed with the preceding patient taken to the operating room, placed in prone position or standard monitors applied to the patient then after induction of anesthesia back prepped with chlorhexidine 3 times , Then under strict sterile technique, I did the left sacroiliac joint the which was identified under fluoroscopy guidance been local infiltration of the skin and subcu interstitial with lidocaine 1% then 22-gauge Quincke Needle advanced slowly under fluoroscopy and placed in the left sacroiliac joint needle placement confirmed with AP and oblique and lateral view and after appropriate needle placement confirmed and after negative aspiration, or heme , then Ropivacaine 0.5% 3 mL, and 40 mg of depo-medrol mixed together and injected in the left sacroiliac joint after negative aspiration patient tolerated the procedure well without any complications , patient will follow up in the pain clinic in a few weeks
[2019-03-13] MEDS ORDERED: IV FLUID CONTINUATION 1,000 ML IV ONE (08:45)
--- NOTE | 2019-03-13 08:56 | FL ---
EXAMINATION TYPE: FL guided pain mgmt statistic DATE OF EXAM: 03/13/2019 HISTORY: Pain 4 SEC FLUORO. LEFT SI JOINT.
[2019-03-13 09:05] VITALS: BP 103/65; PULSE 80
== END 2019-03-13 09:14 | disposition home or self-care (01) ==
LOC: ORPAIN 07:02
PROVIDERS: ATTEND Specialist
DX: M46.1 Sacroiliitis, not elsewhere classified (principal); M47.816 Spondylosis without myelopathy or radiculopathy, lumbar region; Z88.2 Allergy status to sulfonamides; Z88.8 Allergy status to other drugs, medicaments and biological substances; Z91.018 Allergy to other foods
CPT/HCPCS: 81025; J2250; G0260; 27096; 62323

== ENCOUNTER → 2019-04-05 | Outpatient (CLI) | payer OTHER ==
[2019-04-05 13:55] VITALS: BP 125/84; PULSE 75; RESP 16
--- NOTE | 2019-04-05 14:08 | P.PN ---
Progress Note - Text Progress Note Date: 04/05/19 34-year-old female with a history of low back pain and left buttock pain. She's had two left sacroiliac joint injections. She does not report any benefit from left SI joint injections. She's also had bilateral lumbar radio frequency ablations done in the past with good relief, her right side still is 100% relief over the past month or so her left low back has been more troublesome. 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 She is inquiring about repeating the left radio frequency ablation. VAS today is a 4-10 in severity on her left side she describes it as a frequent sharp throbbing pain worsened with flexion and extension and standing for prolonged periods. Alleviating factors are rest and medication. She denies any radicular pain into her lower extremities, she does report some paresthesias with positioning into her left lower extremity is at a result of change in position. In addition to above, 13-point review of systems is also negative for chest pain, shortness of breath, changes in vision, changes in hearing, new onset weakness, abdominal pain, diarrhea, extreme fatigue, malaise, fever, skin changes, homicidal or suicidal ideation, or bowel or bladder incontinence. Vital Signs: Reviewed in EMR, obese Gen: WDWN, AAOx3, NAD HEENT: NCAT, EOMI, hearing grossly normal Pulm: resp unlabored Abd: soft, NT, ND Neck: supple, trachea midline ROM in flexion lumbar spine: Pain with flexion greater than 60 ROM in extension lumbar spine: Pain with extension at greater than -10 Lumbar paravertebral tenderness: + Facet loading: + + Left L4-L5 tenderness: + On left Jovi's test: Negative bilateral Straight leg raise: Negative bilateral Lower extremity: Muscle strength 5 out of 5 and symmetrical bilateral and quadricep, hamstring, dorsiflexion, plantar flexion. Neuro: CN II-XII grossly intact, muscle strength lower extremities PRESERVED Imaging: Reviewed in EMR Assessment: 1. Lumbar spondylosis without myelopathy Plan: 1. Explanation: Opioid and psychological risk scores were reviewed. Diagnoses, prognoses, and multiple treatment options including but not limited to physical therapy, interventional therapies, adjuvant medical therapies, narcotic medication therapies, and surgery were discussed with the patient and all questions were answered to the patient's satisfaction. 2. Opioid agreement: None 3. Counseling: The patient was counseled extensively on SMOKING CESSATION, BODY MASS INDEX, EXERCISE. Specifically, the patient was instructed regarding the importance of smoking cessation, obesity, and exercise in the context of both chronic pain and overall health. 4. Procedures: Left lumbar radio frequency ablation L3-L4, L4-L5, L5-S1 5. Consultations: We will refer patient to physical therapy to be done 2-3 times a week for the next 6 weeks. Patient could benefit from range of motion, core muscle and low back muscle strengthening. 6. Investigations: None 7. Medications: None 8. Disposition: f/u for procedure as scheduled PQRS measures: 1-Patient's medications are documented in the chart. 2-Tobacco use is negative, counseling not needed 3-Patient has not had a pneumococcal vaccine. 4-Advanced care planning discussed, patient unable to give. 5-Opioid contract signed with the patient. 6-Pain positive, follow-up visit or procedure scheduled 7-Patient's blood pressure measured and documented, and WNL. 8-Patient's weight was measured, and body mass index ABOVE the normal limits, and counseling was done. Patient instructed to follow up with PCP. 9-Patient WAS NOT identified as an unhealthy alcohol user.
== END | disposition home or self-care (01) ==
LOC: PNWHC3 13:38
PROVIDERS: ATTEND Anesthesiology
DX: M47.816 Spondylosis without myelopathy or radiculopathy, lumbar region (principal)
CPT/HCPCS: 99211

== ENCOUNTER 2019-04-30 09:00 | Day surgery (SDC) | payer OTHER ==
[2019-04-30 09:54] VITALS: TEMP 98.4
[2019-04-30] MEDS ORDERED: LACTATED RINGERS 1,000 ML IV ONE (10:00)
[2019-04-30] MEDS ORDERED: LIDOCAINE 1% 20 ML VIAL (10MG/ML) FOR IV START INTRADERMA ONE (10:01)
[2019-04-30] MEDS ORDERED: LACTATED RINGERS 1,000 ML IV SCH (11:00)
--- NOTE | 2019-04-30 11:18 | P.PCN ---
Date of Procedure: 04/30/19 Surgeon: Annette Sanches Pathology: none sent Condition: stable Disposition: PACU Description of Procedure: PREOPERATIVE DIAGNOSIS: Lumbar spondylosis without myelopathy, morbid obesity POSTOPERATIVE DIAGNOSIS: Lumbar spondylosis without myelopathy,morbid obesity PROCEDURES : Radiofrequency thermocoagulation L3-L4, L4-L5, and L5-S1 medial branch, with fluoroscopic guidance ANESTHESIA: IV moderate conscious sedation with versed and fentanyl and local infiltration with lidocaine 1% 5 ml EBL: Minimal PROCEDURE INDICATION: The patient with low back pain secondary to lumbar facet arthropathy who had more than 50% relief of her pain with previous diagnostic lumbar medial branch block with bupivacaine. PROCEDURE DESCRIPTION / TECHNIQUE: The patient was seen and identified in the preoperative area. Risks, benefits, complications, including but not limited to risk of infection ,bleeding , allergic reactions to the medications and no complete pain relief , and alternatives were discussed with the patient, the patient agreed to proceed with the procedure and signed the consent. IV was started. Vital signs remained stable throughout the procedure. Patient was taken to the OR and time out was completed. The patient was placed in the prone position on the procedure table. The lumber area was prepped and draped in the usual sterile fashion. . Vital signs were closely monitored during the procedure .IV sedation was used during the procedure to decrease patients anxiety. The target points were identified as follows: For the L5-S1 level which corresponds to the dorsal ramus of L5 the target point was at the superior medial aspect of the sacral ala on the ---left- side of the spine on the AP view of fluoroscopy and for the L3, and L4 medial branches the target points were at the connection between the transverse process and the superior articular process of L4, and L5 vertebra respectively on the --left-- oblique view of fluoroscopy. skin was marked, and localized with 1% lidocaineat these points. Subsequently, an 18 -od radiofrequency needles with a 10-mm curved active tips were advanced guided by fluoroscopy to each of the target points mentioned above in a superior medial direction to get the active tips as parallel as possible to the medial branches tracks. AP, oblique, and lateral views of fluoroscopy were used to verify needle tips position. Each level then underwent motor testing at 2.5 Hz and 0 to 3 volt with local stimulation, but no radicular symptoms down the legs. Thereafter radiofrequency thermocoagulation at 80 degrees celsius for 90 seconds after injecting 1 ml of PF Marcaine 0.5%(3 mls) with 40 mg of Kenalog. At the end of the procedure, the skin was cleansed and bandages were applied. COMPLICATIONS: No acute complications. DISPOSITION / PLANS: The patient was placed in a supine position and transferred to the recovery area in a stable condition for observation and was discharged from the recovery room after meeting discharge criteria. Home discharge instructions given to the patient by the staff. The patient was reexamined prior to discharge. The patient will schedule a follow up in the clinic in 2-4 weeks.
[2019-04-30] MEDS ORDERED: IV FLUID CONTINUATION 1,000 ML IV ONE ×2 (11:25)
--- NOTE | 2019-04-30 11:49 | FL ---
EXAMINATION TYPE: FL guided pain mgmt statistic DATE OF EXAM: 04/30/2019 CLINICAL HISTORY: Low back pain. TECHNIQUE: Fluoroscopy. COMPARISON: None. FINDINGS: Fluoroscopic guidance was provided during pain relief procedure performed by Dr. Sanches . A total of 14 seconds of fluoroscopic time was utilized during the procedure and 4 spot images are acquired. Images acquired shows needle localization at multiple levels in the lumbar spine. IMPRESSION: As Above.
[2019-04-30 11:59] VITALS: BP 136/83; PULSE 66; RESP 18
== END 2019-04-30 12:04 | disposition home or self-care (01) ==
LOC: ORPAIN 09:00
PROVIDERS: ATTEND Anesthesiology
DX: M47.816 Spondylosis without myelopathy or radiculopathy, lumbar region (principal); E66.01 Morbid (severe) obesity due to excess calories; Z68.39 Body mass index [BMI] 39.0-39.9, adult; Z88.2 Allergy status to sulfonamides
CPT/HCPCS: 81025; 64635; 64636 ×2; J2250; J3301; J3010; 99152

== ENCOUNTER 2019-06-23 15:10 | Emergency (ER) | payer OTHER ==
[2019-06-23 15:25] VITALS: BP 156/93; PULSE 90; RESP 16; TEMP 98
--- NOTE | 2019-06-23 15:38 | ED ---
ENT HPI - General Chief complaint: ENT Stated complaint: ear pain Time Seen by Provider: 06/23/19 15:26 Source: patient Mode of arrival: ambulatory Limitations: no limitations - History of Present Illness Initial comments: Patient is a 34-year-old male presenting to emergency Department with a chief complaint of left ear pain. Patient reports the otalgia started 2 days ago and has not resolved. Patient reports the pain is exacerbated with pulling of the ear. Patient also reports yellow discharge. Patient denies recently swimming in a pool. Patient also reports a headache originating at the ear. Patient denies fever, nausea or vomiting. Patient denies taking any medications to alleviate his symptoms. - Related Data Home Medications Medication Instructions Recorded Confirmed Ibuprofen [Motrin] 800 mg PO TID PRN 06/16/18 04/30/19 ALPRAZolam [Xanax] 0.25 mg PO TID PRN 12/05/18 04/30/19 buPROPion [Wellbutrin] 100 mg PO BID 04/05/19 04/30/19 Previous Rx's Medication Instructions Recorded Nphgrcgp-Rqxpevqyg-Ac Otic 2 drops LEFT EAR TID #1 bottle 06/23/19 [Cortisporin Otic Soln] Allergies Allergy/AdvReac Type Severity Reaction Status Date / Time onion Allergy Rash/Hives Verified 06/23/19 15:25 sulfamethoxazole Allergy Rash/Hives Verified 06/23/19 15:25 [From Bactrim] trimethoprim [From Bactrim] Allergy Rash/Hives Verified 06/23/19 15:25 Review of Systems ROS Statement: Those systems with pertinent positive or pertinent negative responses have been documented in the HPI. ROS Other: All systems not noted in ROS Statement are negative. Past Medical History Past Medical History: Hyperlipidemia, Hypertension Additional Past Medical History / Comment(s): Chronic back pain, migraine headaches. History of Any Multi-Drug Resistant Organisms: None Reported Past Surgical History: Cholecystectomy, Orthopedic Surgery Additional Past Surgical History / Comment(s): Elbow surgery. Novasure/UNTERINE ABLATION JANUARY 2013. Carpal tunnel. Repair bilateral hands. Pain clinic procedures. Past Anesthesia/Blood Transfusion Reactions: No Reported Reaction Past Psychological History: Anxiety, Depression Smoking Status: Never smoker Past Alcohol Use History: None Reported Past Drug Use History: None Reported - Past Family History Mother Family Medical History: Hypertension Additional Family Medical History / Comment(s): Heart problems. Father Family Medical History: No Reported History General Exam Limitations: no limitations General appearance: alert, in no apparent distress Head exam: Present: atraumatic, normocephalic, normal inspection Eye exam: Present: normal appearance, PERRL, EOMI Pupils: Present: normal accommodation ENT exam: Present: normal exam, normal oropharynx, mucous membranes moist, TM's normal bilaterally (Unable to visualize left TM. Right TM unremarkable). Absent: normal external ear exam (Erythema and discharge on the left ear) Neck exam: Present: normal inspection, full ROM Respiratory exam: Present: normal lung sounds bilaterally Cardiovascular Exam: Present: regular rate, normal rhythm, normal heart sounds Extremities exam: Present: normal inspection, full ROM Back exam: Present: normal inspection, full ROM Neurological exam: Present: alert, oriented X3 Psychiatric exam: Present: normal affect, normal mood Skin exam: Present: warm, intact, normal color Course Vital Signs 06/23/19 15:23 Temperature 98 F Pulse Rate 90 Respiratory 16 Rate Blood Pressure 156/93 O2 Sat by Pulse 96 Oximetry Medical Decision Making - Medical Decision Making Patient is a 34-year-old female presenting to emergency department with left year pain. Based on physical examination the patient appears to have otitis externa. Patient will be treated with antibiotic drops. Patient advised to avoid water in the ear. Patient advised to alternate between Tylenol and ibuprofen for pain control. Strict return parameters were thoroughly discussed patient was understanding and agreeable. Patient was to follow primary care. Case discussed with physician. Disposition Clinical Impression: Otitis externa of left ear Disposition: HOME SELF-CARE Condition: Stable Instructions (If sedation given, give patient instructions): Earache (ED) Additional Instructions: Please use prescribed medication as directed. Please follow up with primary care. Please return to emergency department if symptoms worsen. Prescriptions: Bhjaffdw-Wiwdftvfn-Qb Otic [Cortisporin Otic Soln] 2 drops LEFT EAR TID #1 bottle Is patient prescribed a controlled substance at d/c from ED?: No Referrals: Hemant David MD [Primary Care Provider] - 1-2 days Time of Disposition: 15:38
== END 2019-06-23 15:53 | disposition home or self-care (01) ==
LOC: EC 15:10
DX: H60.92 Unspecified otitis externa, left ear (principal); R51 Headache; F32.9 Major depressive disorder, single episode, unspecified; F41.9 Anxiety disorder, unspecified; Z79.899 Other long term (current) drug therapy; Z88.2 Allergy status to sulfonamides; Z91.018 Allergy to other foods
CPT/HCPCS: 99282

== ENCOUNTER 2020-06-09 12:07 | Observation (INO) | payer OTHER ==
[2020-06-09] MEDS ORDERED: SODIUM CHLORIDE 0.9% 1,000 ML IV STA (12:36)
[2020-06-09] MEDS ORDERED: ONDANSETRON 4 MG/2 ML VIAL IVP STA (12:36)
[2020-06-09] MEDS ORDERED: KETOROLAC 30 MG/ML 1 ML VIAL IVP STA (12:36)
--- NOTE | 2020-06-09 12:41 | ED ---
URI HPI - General Chief Complaint: Upper Respiratory Infection Stated Complaint: sore throat,cough,headache,nausea Time Seen by Provider: 06/09/20 12:16 Source: patient Mode of arrival: ambulatory Limitations: no limitations - History of Present Illness Initial Comments: Patient is a 35-year-old female presenting to emergency Department with complaints of a cough, intermittent shortness of breath, headache for the past 3-4 days. Patient states she is also nauseous, intermittent chest pains when she coughs. Patient is also complaining of a sore throat. Patient denies having any fever but has been having hot and cold flashes. She states she tried taking ibuprofen for her headache but then had vomiting shortly after. She denies history of heart disease. She admits to history cholecystectomy, no other abdominal surgeries. She has been having regular bowel movements. She does complain of urinary frequency, no dysuria. She just admits to being very thirsty, drinking a lot of water. She denies being diabetic. She has no further complaints at this time. Upon arrival to the ER, patient was tachycardia, otherwise vital are normal. - Related Data Previous Rx's Medication Instructions Recorded Insulin Glargine,Hum.rec.anlog 35 unit SQ DAILY 30 Days #2 pen 06/11/20 [Basaglar Kwikpen U-100] Pantoprazole Sodium [Protonix] 40 mg PO DAILY #30 tablet. 06/11/20 metFORMIN HCL [Metformin HCl ER] 500 mg PO BID #60 tab.er.24h 06/11/20 Allergies Allergy/AdvReac Type Severity Reaction Status Date / Time onion Allergy Anaphylaxis Verified 06/09/20 15:22 sulfamethoxazole Allergy Rash/Hives Verified 06/09/20 15:22 [From Bactrim] trimethoprim [From Bactrim] Allergy Rash/Hives Verified 06/09/20 15:22 Review of Systems ROS Statement: Those systems with pertinent positive or pertinent negative responses have been documented in the HPI. ROS Other: All systems not noted in ROS Statement are negative. Past Medical History Past Medical History: Hyperlipidemia, Hypertension Additional Past Medical History / Comment(s): Chronic back pain, migraine headaches. History of Any Multi-Drug Resistant Organisms: None Reported Past Surgical History: Cholecystectomy, Orthopedic Surgery Additional Past Surgical History / Comment(s): Elbow surgery. Novasure/UNTERINE ABLATION JANUARY 2013. Carpal tunnel. Repair bilateral hands. Pain clinic procedures. Past Anesthesia/Blood Transfusion Reactions: No Reported Reaction Past Psychological History: Anxiety, Depression Smoking Status: Never smoker Past Alcohol Use History: None Reported Past Drug Use History: None Reported - Past Family History Mother Family Medical History: Hypertension Additional Family Medical History / Comment(s): Heart problems. Father Family Medical History: No Reported History General Exam - General Exam Comments Initial Comments: GENERAL: Patient is well-developed and well-nourished. Patient is nontoxic and in no acute distress. HEAD: Atraumatic, normocephalic. EYES: Pupils equal round and reactive to light, extraocular movements intact, sclera anicteric, conjunctiva are normal. Eyelids were unremarkable. ENT: TMs normal, nares patent, oropharynx clear without exudates. Dry mucous membranes. NECK: Normal range of motion, supple without lymphadenopathy or JVD. LUNGS: Unlabored respirations. Mild scattered wheezes, no rales or rhonchi. Dry cough noted. HEART: Regular rate and rhythm without murmurs, rubs or gallops. ABDOMEN: Soft, nontender, normoactive bowel sounds. No guarding, no rebound. No masses appreciated. : Deferred MUSCULOSKELETAL: Normal extremities with adequate strength and normal range of motion, no pitting or edema. No clubbing or cyanosis. NEUROLOGICAL: Patient is alert and oriented x 3. Motor and sensory are also intact. Normal speech, normal gait. Symmetrical smile. PSYCH: Normal mood, normal affect. SKIN: Warm, Dry, normal turgor, no rashes or lesions noted. Limitations: no limitations Course Vital Signs 06/09/20 06/09/20 06/09/20 12:11 12:23 13:07 Temperature 98.5 F Pulse Rate 121 H 109 H Pulse Rate [ Pulse Oximetery ] Respiratory 18 18 18 Rate Blood Pressure 137/85 146/108 Blood Pressure [Right Arm] O2 Sat by Pulse 97 94 L Oximetry 06/09/20 06/09/20 14:55 15:33 Temperature 98.7 F Pulse Rate 91 Pulse Rate [ 95 Pulse Oximetery ] Respiratory 18 14 Rate Blood Pressure 144/92 Blood Pressure 121/71 [Right Arm] O2 Sat by Pulse 94 L 95 Oximetry Medical Decision Making - Medical Decision Making Patient is a 35-year-old female here for a cough, urinary frequency, headache, generally feeling ill 3-4 days. She currently takes no medications. Patient was tachycardia upon arrival, afebrile. Patient's EKG shows sinus tach, no acute process. Laboratory reveals a normal white count, d-dimer is normal. Patient's sodium was 130, glucose was 555. Liver enzymes are also slightly elevated. Urinalysis does show 4+ glucose, acetone is negative, strep is negative. Chest x-ray shows no acute process. I discussed these findings with the patient. Patient was given a liter of fluids. She needs to be admitted for new onset diabetes. Patient is agreement with this plan of care. Patient will be admitted to Dr. lAdana. Case discussed with Dr. Ma. - Lab Data Result diagrams: 06/11/20 05:34 06/11/20 05:34 Lab Results 06/09/20 06/09/20 06/09/20 Range/Units 12:40 12:42 12:42 WBC (3.8-10.6) k/uL RBC (3.80-5.40) m/uL Hgb (11.4-16.0) gm/dL Hct (34.0-46.0) % MCV (80.0-100.0) fL MCH (25.0-35.0) pg MCHC (31.0-37.0) g/dL RDW (11.5-15.5) % Plt Count (150-450) k/uL Neutrophils % % Lymphocytes % % Monocytes % % Eosinophils % % Basophils % % Neutrophils # (1.3-7.7) k/uL Lymphocytes # (1.0-4.8) k/uL Monocytes # (0-1.0) k/uL Eosinophils # (0-0.7) k/uL Basophils # (0-0.2) k/uL D-Dimer 0.23 (<0.60) mg/L FEU Sodium (137-145) mmol/L Potassium (3.5-5.1) mmol/L Chloride (98-107) mmol/L Carbon Dioxide (22-30) mmol/L Anion Gap mmol/L BUN (7-17) mg/dL Creatinine (0.52-1.04) mg/dL Est GFR (CKD-EPI)AfAm (>60 ml/min/1.73 sqM) Est GFR (CKD-EPI)NonAf (>60 ml/min/1.73 sqM) Glucose (74-99) mg/dL Estimated Ave Glu mg/dL Hemoglobin A1c (4.0-6.0) % Calcium (8.4-10.2) mg/dL Total Bilirubin (0.2-1.3) mg/dL AST (14-36) U/L ALT (4-34) U/L Alkaline Phosphatase (38-126) U/L Total Protein (6.3-8.2) g/dL Albumin (3.5-5.0) g/dL Urine Color Light Yellow Urine Appearance Clear (Clear) Urine pH 5.5 (5.0-8.0) Ur Specific Dozier 1.032 (1.001-1.035) Urine Protein Negative (Negative) Urine Glucose (UA) 4+ H (Negative) Urine Ketones 1+ H (Negative) Urine Blood Negative (Negative) Urine Nitrite Negative (Negative) Urine Bilirubin Negative (Negative) Urine Urobilinogen <2.0 (<2.0) mg/dL Ur Leukocyte Esterase Negative (Negative) Urine HCG, Qual Not Detected (Not Detectd) Acetone, Qual (Negative) Group A Strep Rapid (Negative) 06/09/20 06/09/20 06/09/20 Range/Units 12:52 12:52 12:52 WBC 6.2 (3.8-10.6) k/uL RBC 5.54 H (3.80-5.40) m/uL Hgb 15.6 (11.4-16.0) gm/dL Hct 47.1 H (34.0-46.0) % MCV 85.0 (80.0-100.0) fL MCH 28.1 (25.0-35.0) pg MCHC 33.1 (31.0-37.0) g/dL RDW 13.0 (11.5-15.5) % Plt Count 218 (150-450) k/uL Neutrophils % 61 % Lymphocytes % 28 % Monocytes % 5 % Eosinophils % 2 % Basophils % 2 % Neutrophils # 3.8 (1.3-7.7) k/uL Lymphocytes # 1.8 (1.0-4.8) k/uL Monocytes # 0.3 (0-1.0) k/uL Eosinophils # 0.1 (0-0.7) k/uL Basophils # 0.1 (0-0.2) k/uL D-Dimer (<0.60) mg/L FEU Sodium 130 L (137-145) mmol/L Potassium 4.4 (3.5-5.1) mmol/L Chloride 94 L (98-107) mmol/L Carbon Dioxide 22 (22-30) mmol/L Anion Gap 14 mmol/L BUN 6 L (7-17) mg/dL Creatinine 0.39 L (0.52-1.04) mg/dL Est GFR (CKD-EPI)AfAm >90 (>60 ml/min/1.73 sqM) Est GFR (CKD-EPI)NonAf >90 (>60 ml/min/1.73 sqM) Glucose 555 H* (74-99) mg/dL Estimated Ave Glu mg/dL Hemoglobin A1c (4.0-6.0) % Calcium 10.0 (8.4-10.2) mg/dL Total Bilirubin 0.9 (0.2-1.3) mg/dL AST 179 H (14-36) U/L ALT 108 H (4-34) U/L Alkaline Phosphatase 195 H (38-126) U/L Total Protein 8.0 (6.3-8.2) g/dL Albumin 4.8 (3.5-5.0) g/dL Urine Color Urine Appearance (Clear) Urine pH (5.0-8.0) Ur Specific Dozier (1.001-1.035) Urine Protein (Negative) Urine Glucose (UA) (Negative) Urine Ketones (Negative) Urine Blood (Negative) Urine Nitrite (Negative) Urine Bilirubin (Negative) Urine Urobilinogen (<2.0) mg/dL Ur Leukocyte Esterase (Negative) Urine HCG, Qual (Not Detectd) Acetone, Qual Negative (Negative) Group A Strep Rapid (Negative) 06/09/20 06/09/20 Range/Units 12:52 13:07 WBC (3.8-10.6) k/uL RBC (3.80-5.40) m/uL Hgb (11.4-16.0) gm/dL Hct (34.0-46.0) % MCV (80.0-100.0) fL MCH (25.0-35.0) pg MCHC (31.0-37.0) g/dL RDW (11.5-15.5) % Plt Count (150-450) k/uL Neutrophils % % Lymphocytes % % Monocytes % % Eosinophils % % Basophils % % Neutrophils # (1.3-7.7) k/uL Lymphocytes # (1.0-4.8) k/uL Monocytes # (0-1.0) k/uL Eosinophils # (0-0.7) k/uL Basophils # (0-0.2) k/uL D-Dimer (<0.60) mg/L FEU Sodium (137-145) mmol/L Potassium (3.5-5.1) mmol/L Chloride (98-107) mmol/L Carbon Dioxide (22-30) mmol/L Anion Gap mmol/L BUN (7-17) mg/dL Creatinine (0.52-1.04) mg/dL Est GFR (CKD-EPI)AfAm (>60 ml/min/1.73 sqM) Est GFR (CKD-EPI)NonAf (>60 ml/min/1.73 sqM) Glucose (74-99) mg/dL Estimated Ave Glu mg/dL 289 Hemoglobin A1c 11.7 H (4.0-6.0) % Calcium (8.4-10.2) mg/dL Total Bilirubin (0.2-1.3) mg/dL AST (14-36) U/L ALT (4-34) U/L Alkaline Phosphatase (38-126) U/L Total Protein (6.3-8.2) g/dL Albumin (3.5-5.0) g/dL Urine Color Urine Appearance (Clear) Urine pH (5.0-8.0) Ur Specific Dozier (1.001-1.035) Urine Protein (Negative) Urine Glucose (UA) (Negative) Urine Ketones (Negative) Urine Blood (Negative) Urine Nitrite (Negative) Urine Bilirubin (Negative) Urine Urobilinogen (<2.0) mg/dL Ur Leukocyte Esterase (Negative) Urine HCG, Qual (Not Detectd) Acetone, Qual (Negative) Group A Strep Rapid Negative (Negative) - EKG Data EKG Comments: EKG shows sinus tachycardia, nonspecific T-wave changes, no signs of acute ischemia. Ventricular rate 113, NH interval 148, QT 344. Disposition Clinical Impression: Upper respiratory tract infection, New onset type 2 diabetes mellitus, Hyperg lycemia Disposition: ADMITTED IP TO THIS HOSP Condition: Stable Decision Date: 06/09/20 Decision Time: 14:31
[2020-06-09 12:59] LABS: Appearance,Urine Clear (Clear); Bilirubin,Urine Negative (Negative); Blood,Urine Negative (Negative); Color,Urine Light Yellow; Glucose,Urine (UA) 4+ (Negative); Ketones,Urine 1+ (Negative); Leukocyte Esterase,Urine Negative (Negative); Nitrite,Urine Negative (Negative); PH, Urine 5.5 (5.0-8.0); Protein,Urine Negative (Negative); Specific Gravity,Urine 1.032 (1.001-1.035); Urobilinogen,Urine <2.0 mg/dL (<2.0)
[2020-06-09 13:19] LABS: Basophils # (A) 0.1 k/uL (0-0.2); Basophils % (A) 2 %; Eosinophils # (A) 0.1 k/uL (0-0.7); Eosinophils % (A) 2 %; HCT 47.1 % (34.0-46.0); HGB 15.6 gm/dL (11.4-16.0); Lymphocytes # (A) 1.8 k/uL (1.0-4.8); Lymphocytes % (A) 28 %; MCH 28.1 pg (25.0-35.0); MCHC 33.1 g/dL (31.0-37.0); Mean Platelet Volume 8.4; Monocytes # (A) 0.3 k/uL (0-1.0); Monocytes % (A) 5 %; Neutrophils # (A) 3.8 k/uL (1.3-7.7); Neutrophils % (A) 61 %; Platelet Count 218 k/uL (150-450); RBC 5.54 m/uL (3.80-5.40); WBC 6.2 k/uL (3.8-10.6)
--- NOTE | 2020-06-09 13:22 | XR ---
EXAMINATION TYPE: XR chest 2V DATE OF EXAM: 06/09/2020 COMPARISON: Prior chest x-ray 12/01/2018 HISTORY: Cough, pain, congestion TECHNIQUE: Frontal and lateral views of the chest are obtained. FINDINGS: There is no focal air space opacity, pleural effusion, or pneumothorax seen. The cardiac silhouette size is within normal limits. The osseous structures are intact. IMPRESSION: No acute cardiopulmonary process.
[2020-06-09 13:29] LABS: ALT 108 U/L (4-34); AST 179 U/L (14-36); African American GFR (CKD) >90 (>60 ml/min/1.73 sqM); Albumin 4.8 g/dL (3.5-5.0); Alkaline Phosphatase 195 U/L (38-126); Anion Gap 14 mmol/L; Blood Urea Nitrogen 6 mg/dL (7-17); Carbon Dioxide 22 mmol/L (22-30); Chloride 94 mmol/L (98-107); Non-African American GFR(CKD) >90 (>60 ml/min/1.73 sqM); Potassium 4.4 mmol/L (3.5-5.1); Sodium 130 mmol/L (137-145); Total Bilirubin 0.9 mg/dL (0.2-1.3)
[2020-06-09 13:50] LABS: Glucose 555 mg/dL (74-99)
[2020-06-09] MEDS ORDERED: ACETAMINOPHEN TAB 325 MG TAB PO PRN (14:32)
[2020-06-09] MEDS ORDERED: NALOXONE 0.4 MG/ML 1 ML VIAL IV PRN (14:32)
[2020-06-09] MEDS ORDERED: INSULIN ASPART (NovoLOG) 100 UNIT/ML VIAL SQ ONE ×2 (14:33→16:00)
[2020-06-09] MEDS: SODIUM CHLORIDE 0.9% 1,000 ML IV SCH (14:55)
[2020-06-09 14:58] LABS: Glucose,Whole Blood 466 mg/dL (75-99)
[2020-06-09 16:01] LABS: Glucose,Whole Blood 439 mg/dL (75-99)
[2020-06-09] MEDS: INSULIN DETEMIR (LEVEMIR) 100 UNIT/ML SYR SQ SCH (16:18)
[2020-06-09] MEDS: PANTOPRAZOLE 40 MG/10 ML VIAL IVP SCH (16:19)
[2020-06-09 18:24] LABS: Glucose,Whole Blood 334 mg/dL (75-99)
[2020-06-09] MEDS: INSULIN ASPART (NovoLOG) 100 UNIT/ML VIAL SQ SCH ×2 (18:39→21:19)
[2020-06-09] MEDS: KETOROLAC 30 MG/ML 1 ML VIAL IVP PRN (20:16)
[2020-06-09 21:13] LABS: Glucose,Whole Blood 250 mg/dL (75-99)
--- NOTE | 2020-06-09 22:42 | HP ---
HISTORY AND PHYSICAL This patient is a 35-year-old white female who takes no medicines. She said she had normal blood work 6 months ago. She came in with glucose in the 500s for new-onset diabetes. She has had some cough, shortness of breath for the past 3 to 4 days, nausea, intermittent chest pain when she coughs. History of sore throat. Denies any fever but has hot and cold flashes, dysuria, frequency, urgency, hesitancy. She has had cholecystectomy. She has elevated liver enzymes of unclear etiology. Tachycardiac. HOME MEDICINES: Motrin, Xanax, Wellbutrin. ALLERGIES: ONIONS. BACTRIM. REVIEW OF SYSTEMS: Fourteen-point review of systems negative except for mentioned in HPI. PAST MEDICAL HISTORY: Dyslipidemia, hypertension, chronic back pain, migraine headaches, cholecystectomy, orthopedic surgery, elbow surgery, uterine ablation, carpal tunnel repair, anxiety, depression. No smoking. No alcohol. No drugs. Mother with hypertension. Father: Unsure. PHYSICAL EXAMINATION: Obese white female in no acute distress. Tattoos on multiple parts of her body. HEAD: Normocephalic, atraumatic. Pupils equal, round. LUNGS: Clear. HEART: S1, S2. GI: Distended, obese. Range of motion full x4 extremities. NEUROLOGIC: Cranial nerves intact. PSYCH: Fair mood and affect. VITAL SIGNS: Temperature 98.5, pulse 109-121, respiratory rate 18-20, blood pressure 130s to 140s over 85 to 108. Oxygen saturation 94% on room air. ASSESSMENT: 1. Dehydration. 2. New-onset diabetes. 3. Severe hyperglycemia, nonketotic. Start her on long-acting insulin and Accu-Cheks. 4. Hyponatremia. Check hemoglobin A1c, lipid panel. D-dimer is negative. UA is negative for infection. Please see further orders summary. Prognosis guarded. MMODL / IJN: [id number] /
[2020-06-10 02:03] LABS: Glucose,Whole Blood 253 mg/dL (75-99)
[2020-06-10 04:12] LABS: Hemoglobin A1C 11.7 % (4.0-6.0)
[2020-06-10 06:48] LABS: Glucose,Whole Blood 319 mg/dL (75-99)
[2020-06-10] MEDS: KETOROLAC 30 MG/ML 1 ML VIAL IVP PRN ×2 (06:51→20:20)
[2020-06-10 06:53] LABS: Basophils # (A) 0.1 k/uL (0-0.2); Basophils % (A) 1 %; Eosinophils # (A) 0.2 k/uL (0-0.7); Eosinophils % (A) 2 %; HGB 14.3 gm/dL (11.4-16.0); Lymphocytes # (A) 1.5 k/uL (1.0-4.8); Lymphocytes % (A) 21 %; MCH 29.3 pg (25.0-35.0); MCV 86.1 fL (80.0-100.0); Mean Platelet Volume 8.3; Monocytes # (A) 0.3 k/uL (0-1.0); Monocytes % (A) 5 %; Neutrophils # (A) 4.9 k/uL (1.3-7.7); Neutrophils % (A) 70 %; Platelet Count 167 k/uL (150-450); RBC 4.88 m/uL (3.80-5.40); RDW 13.1 % (11.5-15.5)
[2020-06-10 07:03] LABS: ALT 145 U/L (4-34); AST 423 U/L (14-36); African American GFR (CKD) >90 (>60 ml/min/1.73 sqM); Alkaline Phosphatase 157 U/L (38-126); Anion Gap 7 mmol/L; Blood Urea Nitrogen 8 mg/dL (7-17); Calcium 8.5 mg/dL (8.4-10.2); Carbon Dioxide 26 mmol/L (22-30); Chloride 102 mmol/L (98-107); Cholesterol 226 mg/dL (<200); Glucose 311 mg/dL (74-99); HDL Cholesterol 23 mg/dL (40-60); Non-African American GFR(CKD) >90 (>60 ml/min/1.73 sqM); Potassium 4.1 mmol/L (3.5-5.1); Sodium 135 mmol/L (137-145); Total Protein 6.8 g/dL (6.3-8.2); Triglycerides 488 mg/dL (<150)
[2020-06-10] MEDS: INSULIN ASPART (NovoLOG) 100 UNIT/ML VIAL SQ SCH ×4 (08:02→21:14)
--- NOTE | 2020-06-10 08:28 | US ---
EXAMINATION TYPE: US abdomen complete DATE OF EXAM: 06/10/2020 COMPARISON: NONE CLINICAL HISTORY: 35 year-old female elevated LFTs TECHNIQUE: Multiple sonographic images of the abdomen are obtained. FINDINGS: EXAM MEASUREMENTS: Liver Length: 14.2 Gallbladder surgically absent CBD: 0.6 Spleen: 13.3 Right Kidney: 14.3 x 5.1 x 7.6 cm Left Kidney: 14.2 x 6.5 x 7.2cm Pancreas: visualized portions wnl Liver: Heterogeneous and attenuating. This secondarily limits assessment for focal lesions. Gallbladder: Surgically absent. Kidneys: No hydronephrosis on either side. wnlD: wnl Spleenwnl upper limits of normal in size at 13.3 cm. Upper IVC: wnl Abd Aorta: wnl IMPRESSION: 1. Heterogeneous and attenuating liver suggests underlying hepatic steatosis or other nonspecific hep atocellular disease. Correlate with LFTs, lipid profile, and patient risk factors. 2. Status post cholecystectomy. Bile duct is upper limits of normal in caliber likely due to postchol ecystectomy status.
[2020-06-10] MEDS: PANTOPRAZOLE 40 MG/10 ML VIAL IVP SCH (09:38)
[2020-06-10] MEDS: INSULIN DETEMIR (LEVEMIR) 100 UNIT/ML SYR SQ SCH (09:39)
[2020-06-10] MEDS: SODIUM CHLORIDE 0.9% 1,000 ML IV SCH (09:40)
[2020-06-10 11:32] VITALS: BMI 42.6
[2020-06-10 11:38] LABS: Glucose,Whole Blood 282 mg/dL (75-99)
--- NOTE | 2020-06-10 13:28 | PN ---
PROGRESS NOTE Abdominal ultrasound showed fatty liver. No gallstones. Hepatitis panels and different panels for elevated liver enzymes are pending, as she has really high liver enzymes. She has severely high cholesterol and low HDL. She has not been taking the cholesterol medications as an outpatient due to liver enzymes being so high. Her AST is 423, alkaline phosphatase 157, ALT is 145. Cardiovascular S1-S2. Lungs clear. GI soft. Neurologic, cranial nerves are intact. Endocrine, BMI is over 40. ASSESSMENT: 1. Uncontrolled diabetes mellitus. 2. Fatty liver. 3. Elevated liver enzymes of unclear etiology. 4. Headaches. 5. Epigastric pain due to gastroesophageal reflux disease. PLAN: She is on Protonix. She is on insulin. Possibly need cholesterol medication depending on what GI recommends. Possible discharge home in the next 24 to 48 hours. MMODL / IJN: [id number] /
[2020-06-10 17:04] LABS: Glucose,Whole Blood 364 mg/dL (75-99)
[2020-06-10 18:16] LABS: Hepatitis A Antibody IgM Non-Reactive (Non-Reactive); Hepatitis B Core IgM Non-Reactive (Non-Reactive); Hepatitis B Surface Antigen Non-Reactive (Non-Reactive); Hepatitis C IgG Antibody Non-Reactive (Non-Reactive)
[2020-06-10 21:05] LABS: Glucose,Whole Blood 374 mg/dL (75-99)
--- NOTE | 2020-06-11 01:25 | CONS ---
CONSULTATION DATE OF DICTATION: 06/10/2020 REASON FOR CONSULTATION: Elevated LFTs. HISTORY OF PRESENT ILLNESS: The patient is a 35-year-old pleasant white female admitted to the hospital with uncontrolled hyperglycemia. She was not feeling well, complaining of shortness of breath, intermittent chest pain and coughing for the last few days. She came to the emergency room had a blood sugar of 500s. At the time of admission to the hospital was noted to have elevated serum transaminases and hence we are consulted . The patient denies any history of jaundice or hepatitis. No history of alcohol use. She was told to have fatty liver disease and elevated LFTs for the last 2 years duration. She denies any abdominal pain. No nausea, no vomiting. No fever, chills, or night sweats. PAST MEDICAL HISTORY: Hypertension, hyperlipidemia, chronic migraine, anxiety, depression. PAST SURGICAL HISTORY: Uterine ablation, elbow surgery, cholecystectomy, carpal tunnel surgery. MEDICATIONS AT HOME: Motrin, Xanax, Wellbutrin. ALLERGIES: BACTRIM. SOCIAL HISTORY: No smoking, no alcohol use. FAMILY HISTORY: Unremarkable. REVIEW OF SYSTEMS: CARDIOPULMONARY: No chest pain, but some shortness of breath. GENITOURINARY: No dysuria or hematuria. MUSCULOSKELETAL: Unremarkable. SKIN: Unremarkable. ENDOCRINE: Unremarkable. PSYCHIATRIC: History of anxiety, depression. NEUROLOGY: Unremarkable. ENDOCRINE: Unremarkable. ENT/VISION: Unremarkable. CONSTITUTIONAL: No recent weight loss. No fever, chills, night sweats. PHYSICAL EXAMINATION: She appears comfortable. No apparent distress. Vital signs are stable. Blood pressure is 116/60, pulse rate 71, temperature 98.6. HEENT EXAMINATION: Unremarkable. Conjunctivae pink. Sclerae anicteric. Oral cavity, no lesions. NECK: No JVD or lymph node enlargement. CHEST: Clear to auscultation. HEART: Regular rate and rhythm. ABDOMEN: Soft. Bowel sounds are positive. No organomegaly. EXTREMITIES: No pedal edema. NEURO: She is alert and oriented x3. No focal deficits. LABS: At the time of admission to the hospital: WBC 6.2, hemoglobin 15.6, platelets normal. Basic metabolic panel is within normal limits. AST and ALT are 179 and 108 respectively. Alkaline phosphatase was 195. Today AST went up to 423, ALT was 145, and alkaline phosphatase was 157. T bilirubin is within normal limits. Blood sugar was 555, today it is 311. Triglycerides are 488. Ultrasound of the abdomen done this morning showed evidence of heterogeneous appearing liver consistent with fat infiltration. IMPRESSION: 1. Uncontrolled hyperglycemia/new onset diabetes mellitus. 2. Elevated serum transaminases for the past 2 years duration. On review of her records her serum transaminases were in the range of 100 to 200s and apparently according to the patient she was diagnosed with fatty liver disease in the past. She was on cholesterol medications for hypercholesteremia, but they discontinued about 6 months ago and after which her serum transaminases have only minimally improved. It is likely we are dealing with fatty liver disease but causes of other chronic liver disease cannot be excluded. Ultrasound did show evidence of fatty liver. 3. History of anxiety, depression. RECOMMENDATIONS: 1. We will initiate workup for chronic liver disease and obtain hepatitis serologies for A, B and C, autoimmune workup, and metabolic workup. 2. Aggressive control of blood sugars. 3. When the patient is being discharged home, she was advised to follow up in the office in 2 weeks for close followup. The plan was discussed with her. She is agreeable to it. Thank you for this consultation. MMODL / IJN: [id number] /
[2020-06-11] MEDS: SODIUM CHLORIDE 0.9% 1,000 ML IV SCH (02:34)
[2020-06-11 05:51] LABS: Basophils # (A) 0.1 k/uL (0-0.2); Basophils % (A) 1 %; Eosinophils # (A) 0.1 k/uL (0-0.7); Eosinophils % (A) 3 %; HCT 41.7 % (34.0-46.0); HGB 13.8 gm/dL (11.4-16.0); Lymphocytes % (A) 42 %; MCH 29.3 pg (25.0-35.0); MCHC 33.2 g/dL (31.0-37.0); MCV 88.3 fL (80.0-100.0); Mean Platelet Volume 8.4; Monocytes # (A) 0.2 k/uL (0-1.0); Monocytes % (A) 5 %; Neutrophils # (A) 2.3 k/uL (1.3-7.7); Neutrophils % (A) 48 %; Platelet Count 158 k/uL (150-450); RBC 4.73 m/uL (3.80-5.40); RDW 12.9 % (11.5-15.5); WBC 4.8 k/uL (3.8-10.6)
[2020-06-11 05:57] LABS: ALT 140 U/L (4-34); AST 288 U/L (14-36); African American GFR (CKD) >90 (>60 ml/min/1.73 sqM); Albumin 3.5 g/dL (3.5-5.0); Alkaline Phosphatase 143 U/L (38-126); Anion Gap 7 mmol/L; Blood Urea Nitrogen 6 mg/dL (7-17); Calcium 8.5 mg/dL (8.4-10.2); Carbon Dioxide 26 mmol/L (22-30); Chloride 104 mmol/L (98-107); Glucose 270 mg/dL (74-99); Non-African American GFR(CKD) >90 (>60 ml/min/1.73 sqM); Potassium 3.8 mmol/L (3.5-5.1); Sodium 137 mmol/L (137-145); Total Bilirubin 0.6 mg/dL (0.2-1.3); Total Protein 6.1 g/dL (6.3-8.2)
[2020-06-11 06:42] LABS: Glucose,Whole Blood 266 mg/dL (75-99)
[2020-06-11 07:35] VITALS: BP 124/54; PULSE 60; RESP 12; TEMP 98
[2020-06-11] MEDS: PANTOPRAZOLE 40 MG/10 ML VIAL IVP SCH (07:35)
[2020-06-11] MEDS: INSULIN ASPART (NovoLOG) 100 UNIT/ML VIAL SQ SCH ×2 (07:35→11:59)
[2020-06-11] MEDS: INSULIN DETEMIR (LEVEMIR) 100 UNIT/ML SYR SQ SCH (07:35)
[2020-06-11] MEDS ORDERED: INSULIN DETEMIR (LEVEMIR) 100 UNIT/ML SYR SQ ONE (10:30)
[2020-06-11] MEDS ORDERED: INSULIN ASPART (NovoLOG) 100 UNIT/ML VIAL SQ ONE (11:46)
[2020-06-11 11:52] LABS: Glucose,Whole Blood 246 mg/dL (75-99)
[2020-06-11 12:47] LABS: % Iron Saturation 18.06 (12.00-45.00); Iron 52 ug/dL (50-170); Total Iron Binding Capacity 288 ug/dL (228-460)
[2020-06-11 13:03] LABS: Alpha Fetoprotein, Tumor Mkr <2.5 ng/mL (0.0-7.9); Ferritin 494.6 ng/mL (10.0-291.0)
[2020-06-11 13:16] LABS: Ceruloplasmin 29.7 mg/dL (20.0-60.0)
[2020-06-12] MEDS ORDERED: INSULIN DETEMIR (LEVEMIR) 100 UNIT/ML SYR SQ SCH (09:00)
[2020-06-12 11:31] LABS: Liver/Kidney Microsome Antibod 1.1 UNITS (<=20)
[2020-06-12 12:56] LABS: Albumin 3.38 g/dL (3.80-4.90); Gamma Globulin 0.82 g/dL (0.70-1.50)
--- NOTE | 2020-06-12 14:33 | P.DS ---
Providers Date of admission: 06/09/20 14:32 Expected date of discharge: 06/11/20 Attending physician: Abraham Aldana Consults: 06/10/20 08:07 Consult Physician Routine Consulting Provider: Jacques Joseph Consult Reason/Comments: potential liver problems elevated liver enzymes Do you want consulting provider notified?: Yes Primary care physician: Stated None Hospital Course: Final Diagnoses: Nimesh diabetes mellitus, uncontrolled hyperglycemia, hemoglobin A1c 11.7. Chronic liver disease ,Fatty liver elevated LFTs of unclear etiology, hepatitis serologies pending further outpatient workup with GI Gastroesophageal reflux disease Anxiety depression Hospital course: This is a 35-year-old femaleAdmitted with new onset diabetes, elevated LFTs and multiple other medical issues. Evaluated by GI. Ultrasound of her abdomen reported fatty liver. Hepatitis serologies pending. Maintained on Levemir and NovoLog insulin with significant clinical improvement. Patient is being set up with glucometer, diabetic supplies and will go home on metformin, basalglar. Patient has significant elevated hemoglobin A1c of 11.7, instructed to attend diabetic education classes at PCPs office. Cleared by GI for discharge. Patient will be discharged home today in stable condition with guarded prognosis. Instructed to continue chronic liver disease workup with GI outpatient. Please refer to EMR for further detail. The impression and plan of care has been dictated as directed. .: I performed a history and examination of this patient, discussed the same with the dictator. I agree with the dictator's note ,documented as a scribe. Any additional findings or plans will be noted. Patient Condition at Discharge: Stable Plan - Discharge Summary Discharge Rx Participant: Yes New Discharge Prescriptions: New Insulin Glargine,Hum.rec.anlog [Basaglar Kwikpen U-100] 35 unit SQ DAILY 30 Days #2 pen metFORMIN HCL [Metformin HCl ER] 500 mg PO BID #60 tab.er.24h Pantoprazole Sodium [Protonix] 40 mg PO DAILY #30 tablet. Discharge Medication List Insulin Glargine,Hum.rec.anlog [Basaglar Kwikpen U-100] 35 unit SQ DAILY 30 Days #2 pen 06/11/20 [Rx] Pantoprazole Sodium [Protonix] 40 mg PO DAILY #30 tablet. 06/11/20 [Rx] metFORMIN HCL [Metformin HCl ER] 500 mg PO BID #60 tab.er.24h 06/11/20 [Rx] Follow up Appointment(s)/Referral(s): Abraham Aldana MD [STAFF PHYSICIAN] - 1 Week Tosha Davalos MD [STAFF PHYSICIAN] - 2 Weeks Ambulatory/Diagnostic Orders: Complete Blood Count w/diff [LAB.AMB] Time Frame: 3 Days, Location: None Selected Patient Instructions/Handouts: Type 2 Diabetes in Adults: New Diagnosis (DC) Activity/Diet/Wound Care/Special Instructions: Contact CM at [facility] for indigent funds Diet:; consist. carb Discharge Disposition: HOME SELF-CARE
== END 2020-06-11 14:25 | disposition home or self-care (01) ==
LOC: EC 12:07 → 1SOBS 14:32
PROVIDERS: ADMIT Family Medicine; ATTEND Family Medicine
DX: E11.65 Type 2 diabetes mellitus with hyperglycemia (principal); J06.9 Acute upper respiratory infection, unspecified; K76.0 Fatty (change of) liver, not elsewhere classified; R74.8 Abnormal levels of other serum enzymes; K21.9 Gastro-esophageal reflux disease without esophagitis; E78.5 Hyperlipidemia, unspecified; I10 Essential (primary) hypertension; F41.9 Anxiety disorder, unspecified; F32.9 Major depressive disorder, single episode, unspecified; Z90.49 Acquired absence of other specified parts of digestive tract; R35.0 Frequency of micturition; G89.29 Other chronic pain; M54.9 Dorsalgia, unspecified; G43.909 Migraine, unspecified, not intractable, without status migrainosus; Z82.49 Family history of ischemic heart disease and other diseases of the circulatory system; Z79.1 Long term (current) use of non-steroidal anti-inflammatories (NSAID); Z79.899 Other long term (current) drug therapy; Z88.2 Allergy status to sulfonamides; Z91.018 Allergy to other foods
CPT/HCPCS: 96375 ×2; 96376 ×3; 96361; 96374; 99285; 36415; 93005; 86376; 85379; 80061; 80053 ×3; 80074; 82728; 83540; 83550; 82009; 85025 ×3; 81003; 81025; 83516 ×2; 82103; 82105; 84165; 82390; 86038; 87081; 87430; 83036; 71046; 76700; G0378 ×3; U0003; J2405; J1885 ×2; C9113 ×3